=== PATIENT | male | born 1940 | race African-American/Black ===

== ENCOUNTER 2016-05-08 23:32 | Emergency (ER) ==
[2016-05-09] MEDS ORDERED: NITROGLYCERIN ONE ×2 (00:43→00:47)
--- NOTE | 2016-05-09 00:47 | PROVIDER DOCUMENTATION ---
HPI-Chest Pain - General Source: patient - History of Present Illness-CP Location: reports: substernal Chest Pain Radiation: reports: no radiation Quality of Pain: reports: aching Severity in ED: mild Onset/Duration: 1-3 hours ago Timing: still present Modifying Factors: improves with: nothing Associated Symptoms: reports: dizziness, nausea, syncope Similar Symptoms Previously?: No Recently Seen Here or By Another Healthcare Provider: No <Kate Ruiz - Last Filed: 05/09/16 00:48> <Dami Garcia - Last Filed: 05/09/16 03:18> - General Chief Complaint: Chest Pain Stated Complaint: WEAKNESS NAUSEA WITH NO VOMITING Time Seen by Provider: 05/09/16 00:28 Allergies/Adverse Reactions: Patient Allergies Allergy/AdvReac Type Severity Reaction Status Date / Time No Known Allergies Allergy Verified 05/08/16 23:42 Home Medications: Home Medication List Medication Instructions Recorded Confirmed Last Taken Type ATORVAstatin [Lipitor] 40 mg PO DAILY #30 tablet 12/10/12 Unknown Rx Aspirin 81 mg PO DAILY #0 chewtab 12/10/12 Unknown Rx Carvedilol [Coreg] 6.25 mg PO BID #60 tablet 12/10/12 Unknown Rx - History of Present Illness-CP Nature of Presenting Problem: 75 year old M presents to the ED with a cc of chest pain. PT states earlier tonight he was having a cocktail with friends and became nauseated and flushed feeling. PT states that he walked out on the balcony and became dizzy and blacked out. PT states that he does not remember falling. PT states that afterwards he felt better but developed chest pains. Pt states that he has been having intermittent chest pains x1 year while walking with minimal shortness of breath. (Kate Ruiz) Review of Systems - Adult - REVIEW OF SYSTEMS - ADULT Constitutional: denies: chills, fever Eyes: reports: no symptoms reported Ears, Nose, Mouth & Throat: reports: no symptoms reported Cardiovascular: reports: chest pain. denies: palpitations Respiratory: denies: cough, shortness of breath Gastrointestinal: reports: nausea. denies: abdominal pain, diarrhea, vomiting Genitourinary: denies: dysuria, hematuria Musculoskeletal: denies: back pain, neck pain Integumentary: denies: skin sores/ulcer, skin thickening Neurological: reports: dizziness/vertigo. denies: headache/migraines Psychiatric: reports: no symptoms reported Endocrine: reports: no symptoms reported Hematologic/Lymphatic: reports: no symptoms reported Allergic/Immunologic: reports: no symptoms reported All Other Systems: Reviewed and Negative <Kate Ruiz - Last Filed: 05/09/16 00:48> Past History - Adult - PAST MEDICAL HISTORY-ADULT Review of Records: reports: Nursing Assessment Review, Medications Reviewed Major Childhood Illnesses: reports: denies history Cardiovascular: reports: HTN, hyperlipidemia, [place] Respiratory: reports: COPD Endocrine/Immune: reports: thyroid disorder - PRIOR SURGERIES/PROCEDURES Surgical/Procedure History: reports: CABG - IMMUNIZATION STATUS Childhood Immunizations: See Nurse Assessment Flu Vaccine: See Nurse Assessment - SOCIAL HISTORY Smoking: cigarettes, less than 1 pack/day Provider spent 3-5 mins advising pt. on dangers of tobacco.: Discussed manners to quit use, and f/u contacts for add'l counseling. Substance Use: cocaine Alcohol Use Frequency: occasionally <Kate Ruiz - Last Filed: 05/09/16 00:48> Physical Exam-General - CONSTITUTIONAL General Appearance: appears well, alert, no apparent distress - EYES Eyes: pink conjunctivae - HEAD, EARS, NOSE, MOUTH & THROAT HENMT: normocephalic/atraumatic, moist mucous membranes, normal ENT inspection - NECK Neck: non-tender - RESPIRATORY Respiratory: chest non-tender, lungs clear, normal breath sounds, no respiratory distress - CARDIOVASCULAR Cardiovascular: normal peripheral pulses, regular rate, rhythm - GASTROINTESTINAL (ABDOMEN) Abdominal Exam: normal bowel sounds, non tender, soft, no organomegaly - LYMPHATIC Lymphatic: no adenopathy - MUSCULOSKELETAL Peripheral Pulses: radial (R): 3+, radial (L): 3+ - SKIN Integumentary: normal color, normal turgor - NEUROLOGIC Neurologic: grossly normal - PSYCHIATRIC Psych/Mental Status: normal mood/affect <Dami Garcia - Last Filed: 05/09/16 03:18> Progress - EKG 1 Time of EKG reading by physician:: 23:29 EKG Read and Signed by:: Dami Garcia EKG Interpretation (*Must complete 3 of following elements*): Abnormal Rate: 72 Rhythm: NSR QRS: LVH (with repolarization abnormality) Comments: possible left atrial enlargement, prolonged QT <Kate Ruiz - Last Filed: 05/09/16 00:48> Departure <Kate Ruiz - Last Filed: 05/09/16 00:48> - Departure Time of Disposition Order: 03:14 Certified Medical Emergency: Emergent <Dami Garcia - Last Filed: 05/09/16 03:18> - Departure DIAGNOSIS: Angina effort, Drug abuse, Alcohol abuse Disposition: HOME 01 Condition: Good Referrals: None,PCP [Primary Care Provider] - Amrik Ramirez MD [STAFF PHYSICIAN] - Attestation - Scribe Verification/Attestation Scribe:: Kate Ruiz Acting as Scribe for:: Dami Garcia Scribe documention review:: This chart was documented by a scribe and accurately reflects the service the provider performed and the decisions made by the provider. <Kate Ruiz - Last Filed: 05/09/16 00:48> Physician Attestation - Physician Attestation I, the provider, attest to the following statement:: Dami Garcia Physician documentation Attestation:: This documentation recorded by the scribe accurately reflects the service I personally performed and the decisions made by me. <Kate Ruiz - Last Filed: 05/09/16 00:48>
[2016-05-09] MEDS ORDERED: NITROGLYCERIN SL PRN ×2 (00:50→00:52)
[2016-05-09] MEDS ORDERED: NITROGLYCERIN TOP ONE (00:50)
[2016-05-09] MEDS ORDERED: ASPIRIN PO STA (00:52)
[2016-05-09] MEDS ORDERED: MORPHINE IV ONE (00:54)
[2016-05-09 01:54] LABS: MANUAL DIFF NEEDED? NO
[2016-05-09 02:13] LABS: INR 1.11; PROTIME 11.8 Seconds (9.2-11.7); PTT 25.4 Seconds (22.0-36.0)
[2016-05-09 02:15] LABS: BASO% 0.1 % (0.0-0.8); EOS# 0.03 X1000 (0.0-0.7); EOS% 0.4 % (0.0-10.0); HEMATOCRIT 43.6 % (42.0-52.0); HEMOGLOBIN 15.1 g/dL (14.0-18.0); IMM GRAN# 0.03 X1000 (0.0-0.04); IMM GRAN% 0.4 % (0.0-0.5); LYMPH# 1.47 X1000 (1.2-3.4); LYMPH% 17.5 % (20.5-51.1); MCH 30.8 PG (27-31); MCHC 34.6 g/dL (33-37); MONO# 0.63 X1000 (0.11-0.59); MONO% 7.5 % (1.7-9.3); NEUT% 74.1 % (42.2-75.2); PLT 260 X1000 (130-400)
[2016-05-09 02:25] LABS: AGAP 15; ALBUMIN 4.1 g/dL (3.5-5.0); ALKALINE PHOSPHATASE 73 U/L (32-122); BUN 18 mg/dL (8-22); CHLORIDE 101 mmol/L (98-107); CK PROFILE 159 U/L (24-204); COSMO 279; GOT 17 U/L (10-34); GPT 8 U/L (10-44); MAGNESIUM 2.1 mg/dL (1.5-2.7); POTASSIUM 4.1 mmol/L (3.5-5.1); SODIUM 139 mmol/L (136-145); TCO2 23 mmol/L (25-35); TOTAL BILIRUBIN 0.54 mg/dL (0.20-1.00); TOTAL PROTEIN 6.8 g/dL (6.3-8.3)
[2016-05-09 03:26] LABS: UR AMPHETAMINES QUAL NONE DETECTED (NONE DETECT); UR BARBITUATES QUAL NONE DETECTED (NONE DETECT); UR BENZODIAZEPIN QUAL NONE DETECTED (NONE DETECT); UR CANNABINOIDS QUAL NONE DETECTED (NONE DETECT); UR COCAINE QUAL PRESUMPTIVE POSITIVE (NONE DETECT); UR METHADONE QUAL NONE DETECTED (NONE DETECT); UR OPIATES QUAL PRESUMPTIVE POSITIVE (NONE DETECT); UR OXYCODONE QUAL NONE DETECTED (NONE DETECT); UR PCP QUAL NONE DETECTED (NONE DETECT)
[2016-05-09 03:45] VITALS: BP 161/69
--- NOTE | 2016-05-09 05:57 | EKG Report ---
Test Performed on : 05/09/2016 01:08:41 AM Test Reason : Chest Pain Blood Pressure : / mmHG Vent. Rate : 075 BPM Atrial Rate : 075 BPM P-R Int : 142 ms QRS Dur : 096 ms QT Int : 436 ms P-R-T Axes : 011 034 154 degrees QTc Int : 486 ms Normal sinus rhythm. Possible Left atrial enlargement Left ventricular hypertrophy with repolarization abnormality Prolonged QT Abnormal ECG When compared with ECG of 09-DEC-2012 10:11, premature ventricular complexes. are no longer present ST no longer depressed in Inferior leads ST now depressed in Lateral leads T wave inversion no longer evident in Inferior leads Unconfirmed Result
--- NOTE | 2016-05-09 07:37 | Diag Imaging Result Document ---
PROCEDURE NAME: CHEST-PORTABLE - 05/09/2016 AP PORTABLE CHEST ERECT AT 0115.: FINDINGS: There are sternotomy wires. There is minimal atelectasis in the lung bases. Compared to the previous study of 12/09/2012, there has been, otherwise, no significant change. IMPRESSION: Minimal subsegmental atelectasis.
--- NOTE | 2016-05-09 09:02 | ED EKG INTERP ---
EKG Interpretation - EKG Time of EKG reading by physician:: 01:08 EKG Read and Signed by:: Dami Garcia EKG Interpretation (*Must complete 3 of following elements*): Abnormal Rate: 75 Rhythm: nsr [place]: left (atrail enlargment) QRS: LVH VA Interval: prolonged
== END 2016-05-09 03:50 | disposition home or self-care (01) ==
LOC: EDBD → ED 23:32
DX: I20.8 Other forms of angina pectoris (principal); F19.10 Other psychoactive substance abuse, uncomplicated; F10.10 Alcohol abuse, uncomplicated; R94.31 Abnormal electrocardiogram [ECG] [EKG]; R07.89 Other chest pain; R42 Dizziness and giddiness; R11.0 Nausea; R55 Syncope and collapse; R53.1 Weakness; I10 Essential (primary) hypertension; E78.5 Hyperlipidemia, unspecified; I25.2 Old myocardial infarction; J44.9 Chronic obstructive pulmonary disease, unspecified; F17.210 Nicotine dependence, cigarettes, uncomplicated; Z71.6 Tobacco abuse counseling; Z95.1 Presence of aortocoronary bypass graft
CPT/HCPCS: 71010; 80053; 82550; 83735; 83880; 84484; 85025; 85379; 85610; 85730; 93005; G0480; J2270; 80324; 80345; 80346; 80349; 80353; 80358; 80361; 80365; 83992

== ENCOUNTER 2016-05-18 13:03 | Emergency (ER) ==
[2016-05-18 13:10] VITALS: BP 216/93
[2016-05-18] MEDS ORDERED: CATAPRES PO ONE (13:35)
[2016-05-18] MEDS ORDERED: NORCO-7.5 PO ONE (13:35)
[2016-05-18] MEDS ORDERED: ZOFRAN ODT PO ONE (13:35)
[2016-05-18] MEDS ORDERED: CATAPRES ONE (13:37)
--- NOTE | 2016-05-18 13:42 | PROVIDER DOCUMENTATION ---
HPI-Rash/Wound/ReCheck - General Chief Complaint: Abscess Stated Complaint: POSS ABSCESS Time Seen by Provider: 05/18/16 13:28 Source: patient Allergies/Adverse Reactions: Allergies Allergy/AdvReac Type Severity Reaction Status Date / Time No Known Allergies Allergy Verified 05/18/16 13:25 Home Medications: Home Medication List Medication Instructions Recorded Confirmed Last Taken Type ATORVAstatin [Lipitor] 40 mg PO DAILY #30 tablet 12/10/12 Unknown Rx Aspirin 81 mg PO DAILY #0 chewtab 12/10/12 Unknown Rx Carvedilol [Coreg] 6.25 mg PO BID #60 tablet 12/10/12 Unknown Rx Nitroglycerin Sl [Nitroglycerin] 0.4 mg SL PRN PRN #30 tablet 05/09/16 Unknown Rx ATORVAstatin [Lipitor] 40 mg PO DAILY #30 tablet 05/18/16 Unknown Rx Aspirin [Children's Aspirin] 81 mg PO DAILY #30 tab.chew 05/18/16 Unknown Rx Carvedilol [Coreg] 6.25 mg PO BID #60 tablet 05/18/16 Unknown Rx - History of Present Illness-Dermatology Nature of Presenting Problem: This pt presents today c X 2 complaints. He first states that he is out of his BP medications and his BP is up. Denies any BUNCH, vision changes or chest pains. He is also complaining of a painful skin growth on the R chest area. He states that it is extremely painful and is "weird colored". he states that he noticed it a few days ago. No other issues or complaints. Location: reports: chest Quality: reports: painful Severity: reports: moderate Onset/Duration: reports: other (see hpi) Timing: reports: still present Context/Associated Symptoms: reports: other (see hpi) Similar Symptoms Previously?: No Recently seen or treated by another doctor?: No Review of Systems - Adult - REVIEW OF SYSTEMS - ADULT Constitutional: reports: no symptoms reported. denies: chills, fever Eyes: reports: no symptoms reported. denies: discharge, dry eyes Ears, Nose, Mouth & Throat: reports: no symptoms reported. denies: ear discharge, ear pain Cardiovascular: reports: no symptoms reported. denies: chest pain, edema Respiratory: reports: no symptoms reported. denies: chronic cough, cough Gastrointestinal: reports: no symptoms reported. denies: abdominal pain, hematemesis Genitourinary: reports: no symptoms reported. denies: dysuria, discharge Musculoskeletal: reports: no symptoms reported. denies: bone pain, back pain Integumentary: reports: see HPI. denies: mole changes, nail changes Neurological: reports: no symptoms reported. denies: ataxia, dizziness/vertigo Psychiatric: reports: no symptoms reported. denies: anxiety, anti-depressant use Endocrine: reports: no symptoms reported Hematologic/Lymphatic: reports: no symptoms reported Allergic/Immunologic: reports: no symptoms reported All Other Systems: Reviewed and Negative Past History - Adult - PAST MEDICAL HISTORY-ADULT Review of Records: reports: Old Records Reviewed, Nursing Assessment Review, Medications Reviewed, Social history reviewed & non-contributory. Major Childhood Illnesses: reports: denies history Cardiovascular: reports: HTN, hyperlipidemia, [place] Respiratory: reports: denies history Gastrointestinal: reports: denies history Obstetrical/Gynecological: reports: denies history Genitourinary: reports: denies history Musculoskeletal: reports: denies history Neurological: reports: denies history Endocrine/Immune: reports: denies history Other Conditions: reports: denies history Physical Exam-General - PHYSICAL EXAM-ADULT Initial Vital Signs Reviewed: Yes - CONSTITUTIONAL General Appearance: appears well, alert, no apparent distress - EYES Eyes: PERRL/EOMI, pink conjunctivae - HEAD, EARS, NOSE, MOUTH & THROAT HENMT: normocephalic/atraumatic, moist mucous membranes, normal ENT inspection - NECK Neck: non-tender, full range of motion, supple - RESPIRATORY Respiratory: chest non-tender, lungs clear, normal breath sounds - CARDIOVASCULAR Cardiovascular: normal peripheral pulses, regular rate, rhythm, no edema, no gallop, no JVD, no murmur - GASTROINTESTINAL (ABDOMEN) Abdominal Exam: normal bowel sounds, non tender, soft - MUSCULOSKELETAL Back Exam: normal inspection Extremity: normal range of motion, non-tender, normal gait, normal inspection - SKIN Integumentary: normal turgor, warm/dry, other (there is a moderate sized escharotic skin lesion noted on the R chest wall; this does not appear to be an abscess) - NEUROLOGIC Neurologic: grossly normal, no motor/sensory deficits Progress - PLAN OF CARE/RESULTS Progress/Plan/Lab Results: Orders Category Date Time Status Clonidine [Catapres] Med 05/18/16 13:37 Discontinued 0.2 mg .ROUTE .STK-MED ONE Clonidine [Catapres] Med 05/18/16 13:35 Discontinued 0.2 mg PO NOW ONE Hydrocodone/APAP 7.5 mg/325 mg [[place]-7.5] Med 05/18/16 13:35 Discontinued 1 each PO NOW ONE Ondansetron Odt [Zofran Odt] Med 05/18/16 13:35 Discontinued 4 mg PO NOW ONE Vital Signs Temp Pulse Resp BP Pulse Ox 05/18/16 13:04 97.4 F L 84 18 216/93 100 No Known Allergies Allergy (Verified 05/18/16 13:25) ATORVAstatin [Lipitor] 40 mg PO DAILY #30 tablet 12/10/12 Aspirin 81 mg PO DAILY #0 chewtab 12/10/12 Carvedilol [Coreg] 6.25 mg PO BID #60 tablet 12/10/12 Nitroglycerin Sl [Nitroglycerin] 0.4 mg SL PRN PRN #30 tablet 05/09/16 Will refill medications. Have advised the pt to f/u c a banquet prep cook for a potential biopsy. He is in agreement c this plan. Departure - Departure Time of Disposition Order: 13:43 DIAGNOSIS: Skin lesion of chest wall, Encounter for medication refill Disposition: HOME 01 Certified Medical Emergency: Urgent Condition: Good Additional Instructions: Take medication as prescribed. As we discussed, you need to follow up with a banquet prep cook. ED Follow Up Instructions: You have been treated by a care provider in the Emergency Department. These instructions are being provided to you so you can have an understanding of how to care for yourself upon discharge. Upon discharge from the Emergency Department, you are responsible for making arrangements for follow-up care by a physician of your choice. Take all prescribed medications as directed. Return to the Emergency Department immediately for any new or worsening symptoms. You may call the Physician Referral phone number at [phone] to obtain a list of Physicians who are taking new patients. Prescriptions: Aspirin [Children's Aspirin] 81 mg PO DAILY #30 tab.chew Carvedilol [Coreg] 6.25 mg PO BID #60 tablet ATORVAstatin [Lipitor] 40 mg PO DAILY #30 tablet Referrals: America Candelario MD [Primary Care Provider] - Bryce,Nona S., MD [STAFF PHYSICIAN] - Attestation - Physician/ NIYA Attestation Patient care was provided by Advanced Practice Provider:: Yes Advanced Practice Provider:: Shawn Ramirez Advanced Practice Provider documentation review:: The Mid-level provider documentation, treatment plan and medical decision making was reviewed by the physician who agrees with all treatment and medical decision making by the MLP.
== END 2016-05-18 13:53 | disposition home or self-care (01) ==
LOC: ED 13:03
DX: L98.8 Other specified disorders of the skin and subcutaneous tissue (principal); R07.89 Other chest pain; I10 Essential (primary) hypertension; E78.5 Hyperlipidemia, unspecified; I25.2 Old myocardial infarction; Z79.82 Long term (current) use of aspirin; Z79.899 Other long term (current) drug therapy; Z76.0 Encounter for issue of repeat prescription
CPT/HCPCS: 99283

== ENCOUNTER 2018-03-05 17:44 | Inpatient (IN) ==
[2018-03-05] MEDS ORDERED: ASPIRIN PO ONE (18:15)
[2018-03-05] MEDS ORDERED: ASPIRIN ONE (18:20)
[2018-03-05 18:36] LABS: BASO# 0.02 X1000 (0.0-0.2); BASO% 0.2 % (0.0-0.8); EOS# 0.09 X1000 (0.0-0.7); EOS% 0.9 % (0.0-10.0); HEMATOCRIT 40.2 % (42.0-52.0); HEMOGLOBIN 12.9 g/dL (14.0-18.0); IMM GRAN# 0.04 X1000 (0.0-0.04); IMM GRAN% 0.4 % (0.0-0.5); LYMPH# 1.88 X1000 (1.2-3.4); LYMPH% 19.7 % (20.5-51.1); MCH 29.1 PG (27-31); MCHC 32.1 g/dL (33-37); MCV 90.7 FL (81-99); MONO# 1.13 X1000 (0.11-0.59); MONO% 11.8 % (1.7-9.3); PLT 536 X1000 (130-400); RBC 4.43 XMIL (4.7-6.1); RDW 13.5 % (11.5-14.5); WBC 9.56 X1000 (4.8-10.8)
--- NOTE | 2018-03-05 18:39 | Diag Imaging Result Doc PS360 ---
EXAM: CHEST-2 VIEWS 03/05/2018 HISTORY: chest pain/cough TECHNIQUE: PA and lateral chest COMMENT: Compared to the previous study of 02/13/2018 the opacity in the left lower lobe has improved. There is less perihilar opacity generally and the inspiration is better. IMPRESSION: Improved bronchopneumonia plus minus pulmonary edema. Electronically signed by Frederic Oneill 03/05/2018 6:37 PM
[2018-03-05 18:57] LABS: AGAP 10; ALB/GLOB RATIO 1.1; ALBUMIN 3.4 g/dL (3.5-5.0); ALKALINE PHOSPHATASE 113 U/L (32-122); BUN 14 mg/dL (8-22); CHLORIDE 102 mmol/L (98-107); CK PROFILE 61 U/L (24-204); COSMO 285; CREATININE 1.1 mg/dL (0.7-1.2); ESTIMATED GFR > 60; GLUCOSE 91 mg/dL (70-104); GOT 18 U/L (10-34); GPT 18 U/L (10-44); POTASSIUM 3.5 mmol/L (3.5-5.1); SODIUM 143 mmol/L (136-145); TCO2 31 mmol/L (25-35); TOTAL BILIRUBIN 0.29 mg/dL (0.20-1.00); TOTAL PROTEIN 6.5 g/dL (6.3-8.3)
[2018-03-05 19:19] LABS: PTT 34.2 Seconds (22.3-41.8)
[2018-03-05 19:29] LABS: INR 1.15; PROTIME 15.6 Seconds (11.0-16.0)
[2018-03-05] MEDS ORDERED: MORPHINE IV ONE (20:24)
[2018-03-05] MEDS ORDERED: LOVENOX SUBQ ONE (20:32)
[2018-03-05] MEDS ORDERED: COREG PO ONE (20:32)
[2018-03-05] MEDS ORDERED: LIPITOR PO ONE (20:34)
[2018-03-05] MEDS ORDERED: THIAMINE IM ONE (21:07)
[2018-03-05] MEDS ORDERED: ZOFRAN IV PRN (21:07)
[2018-03-05] MEDS ORDERED: RESTORIL PO ONE (21:07)
[2018-03-05] MEDS ORDERED: TYLENOL PO PRN (21:07)
[2018-03-05] MEDS: LIPITOR PO SCH (21:37)
[2018-03-05] MEDS: NITROGLYCERIN TOP SCH (21:37)
[2018-03-05] MEDS: COZAAR PO SCH (21:37)
[2018-03-05] MEDS: NORVASC PO SCH (21:37)
[2018-03-05] MEDS: COREG PO SCH ×2 (21:37)
[2018-03-05] MEDS: LOVENOX SUBQ SCH (21:38)
[2018-03-06] MEDS: MORPHINE IV PRN ×3 (00:31→15:37)
[2018-03-06 01:17] LABS: UR AMPHETAMINES QUAL NONE DETECTED (NONE DETECT); UR BARBITUATES QUAL NONE DETECTED (NONE DETECT); UR BENZODIAZEPIN QUAL PRESUMPTIVE POSITIVE (NONE DETECT); UR CANNABINOIDS QUAL NONE DETECTED (NONE DETECT); UR COCAINE QUAL NONE DETECTED (NONE DETECT); UR METHADONE QUAL NONE DETECTED (NONE DETECT); UR OPIATES QUAL PRESUMPTIVE POSITIVE (NONE DETECT); UR OXYCODONE QUAL NONE DETECTED (NONE DETECT); UR PCP QUAL NONE DETECTED (NONE DETECT)
[2018-03-06 03:14] LABS: BASO# 0.01 X1000 (0.0-0.2); BASO% 0.1 % (0.0-0.8); EOS# 0.12 X1000 (0.0-0.7); EOS% 1.4 % (0.0-10.0); HEMOGLOBIN 11.5 g/dL (14.0-18.0); IMM GRAN# 0.04 X1000 (0.0-0.04); IMM GRAN% 0.5 % (0.0-0.5); LYMPH# 1.91 X1000 (1.2-3.4); LYMPH% 22.6 % (20.5-51.1); MCH 28.9 PG (27-31); MCHC 31.9 g/dL (33-37); MCV 90.5 FL (81-99); MONO# 0.92 X1000 (0.11-0.59); MONO% 10.9 % (1.7-9.3); MPV 8.5 FL (7.4-10.4); NEUT# 5.44 X1000 (1.4-6.5); NEUT% 64.5 % (42.2-75.2); PLT 475 X1000 (130-400); RBC 3.98 XMIL (4.7-6.1); RDW 13.3 % (11.5-14.5); WBC 8.44 X1000 (4.8-10.8)
[2018-03-06] MEDS: NITROGLYCERIN TOP SCH ×6 (03:23→21:10)
--- NOTE | 2018-03-06 07:05 | HISTORY AND PHYSICAL ---
REASON FOR ADMISSION: Three day history of chest pain. HISTORY OF PRESENT ILLNESS: Mr. Dami Quan is a 77-year-old male with a past medical history of coronary artery disease status post coronary artery bypass grafting and chronic systolic heart failure, hypertensive heart disease, hyperlipidemia, and chronic low back pain. He comes in today complaining of a three day history of initially intermittent precordial chest pain radiating down his left arm with some lightheadedness and mild shortness of breath. He says that he came in specifically today because the pain became constant, and he has tried taking at least three sublingual nitroglycerin tablets without any relief. He says that the pain is like an achy, dull pain in the precordium. He says that his exercise tolerance has significantly plummeted. He says that when he walks about less than about five to ten feet he becomes profoundly short of breath. He also admits to having orthopnea but no PND. No cough. No fever or chills. No nausea or vomiting. No extremity redness or pain. No extremity swelling. He has not had any abdominal distention or fluid elsewhere. He has not had any bleeding from any orifice. REVIEW OF SYSTEMS: 12 system review was done and positives are noted above. ALLERGIES: NO KNOWN DRUG ALLERGIES. MEDICATIONS: 1. [place] 7.5. 2. Amlodipine 5 mg b.i.d. 3. Cozaar 50 mg b.i.d. 4. Aspirin 81 mg daily. 5. Lipitor 40 mg daily. 6. Coreg 12.5 mg b.i.d. 7. Lasix 40 mg daily. 8. Losartan 50 mg b.i.d. FAMILY HISTORY: Notable for heart disease in both parents. ALLERGIES: No known allergies. SOCIAL HISTORY: . The patient lives alone. He had been using cocaine up until his last admission two weeks ago on a weekly basis. He drinks about three to four beers and smokes 1/2 pack per day. SURGICAL HISTORY: 1. Bypass surgery. 2. Coronary stent placement. 3. Tonsillectomy. LABORATORY: White count 90,000, platelets 536, normal differential, potassium 3.5, BUN 14, creatinine 1.1, troponin negative, proBNP 8,000, PT and PTT normal. Chest film showed mild increased vascular markings. EKG showed normal sinus rhythm with flat subtle ST depressions and inverted T waves in the lateral inferior leads. He also has ST depressions in the precordial leads V4-V6 but this is more consistent with LVH with repolarization changes. They appear to be slightly more deep compared to prior EKG done two weeks ago. PHYSICAL EXAM: GENERAL: A well-nourished, elderly, -[place] man in no acute distress. He is alert and oriented x3 with normal affect. VITAL SIGNS: Blood pressure 150/62, heart rate 83, respirations 18, temperature 98.8 degrees Fahrenheit. O2 saturation 97% on room air. HEENT: Head: Normocephalic and atraumatic. Eyes: PERRL. EOMI. No pallor. ENT: Grossly normal. NECK: Supple. No JVD or hepatojugular reflux elicited. He has a left carotid bruit heard. No thyromegaly. CHEST: Decreased entry in the base. CARDIOVASCULAR: S1, S2 heard. No gallop, murmur or rub. Regular. ABDOMEN: Slightly protuberant. Soft. Nontender. No masses or organomegaly. Bowel sounds are hyperactive. No bruit heard. EXTREMITIES: The patient has decreased pulses distally in all extremities. Symmetrical, regular. No edema, clubbing or cyanosis. No tremors. NEUROLOGIC: No gross focal deficits. SKIN: Intact. No breakdown, lesions or erythema. MUSCULOSKELETAL: Grossly normal. ASSESSMENT: 1. Acute coronary syndrome/unstable angina. 2. Hypertensive heart disease. 3. Coronary artery disease. 4. Hyperlipidemia. 5. Recent history of cocaine abuse. 6. Probable COPD. 7. Tobacco use. 8. Probable alcohol abuse. PLAN: The patient's case was discussed with Dr. Amrik Ramirez whom the patient is known to. He will see the patient in the a.m. In the interim, we will do serial cardiac enzymes and EKG. If it is deemed that the patient's enzymes or EKG changes are pronounced, we will revisit the probability of possible transfer in case the patient rules in for an UT. Other issue with this patient is that he does have a history of cocaine abuse, and we will do a urine drug screen. It is possible that his chest pain could be emanating from that. In the interim, we will start the patient on morphine for pain and Nitro Paste. Start patient on higher doses of statins while decreasing the dose of amlodipine due to the potential for drug interaction of these two medications. Slowly increase dose of beta jennifer and adjust to heart rate and the patient's tolerance. We will start the patient on thiamine because of his history of alcohol abuse. NicoDerm patch will also be applied for the patient's tobacco use. The patient' s most recent echo showed an EF of 30-35%. None indicated at this time. Hopefully, with optimal blood pressure control and rate control, the patient's symptoms may be ameliorated. Continue with anti heart failure medications, i.e. Lasix and Cozaar. cc: Ever Blackwell MD [facility]
[2018-03-06] MEDS: COZAAR PO SCH (08:22)
[2018-03-06] MEDS: NORVASC PO SCH (08:22)
[2018-03-06] MEDS: COREG PO SCH ×4 (08:23→22:05)
[2018-03-06] MEDS: LASIX PO SCH (08:24)
[2018-03-06] MEDS: LOVENOX SUBQ SCH ×2 (08:24→22:05)
[2018-03-06] MEDS ORDERED: ASPIRIN PO SCH (09:00)
--- NOTE | 2018-03-06 12:50 | PROGRESS NOTE ---
DATE: 03/06/2018 SUBJECTIVE: This morning Mr. Quan refers to be doing a little better. He said his left chest pain is about 2/10. OBJECTIVE: Vital signs: Blood pressure is 128/46, pulse 66, respiration is 15 , temperature 98.3 degrees. General: Mr. Quan is a 77-year-old, gentleman. He is in bed. He did not seem to be in any cardiopulmonary distress. HEENT: Mucosa is pink and moist. Anicteric. Acyanotic. Neck: Supple. Chest: Air entry is bilaterally reduced, and there is prolonged expiratory phase of respiration. There is also some distant rhonchi and wheezing. Questionable crackles in the bases. Cardiovascular: Regular rate and rhythm. No murmurs, no rubs, no gallops. Abdomen: Soft, nontender. Bowel sounds present. Extremities: No pedal edema. DEVELOPMENT SYSTEM EFFICIENCY MANAGER: Patient was awake, alert, oriented. Musculoskeletal: There is an old sternotomy scar on the anterior midline chest wall. There is also tenderness to palpation of the lateral aspect of the left chest wall cage. However, according to Mr. Quan, the pain is actually worse when he takes in deep breaths. LABORATORY DATA: WBC is 8.44, hemoglobin is 11.5, platelet count 475. Chemistry is also reviewed from yesterday. So far troponins have been trended 3 times negative. Pro B is 8017. This is far less than what he had about 3 weeks ago. IMAGING STUDIES: 1. I have not seen an EKG. However, his tele monitoring strip shows normal sinus rhythm. 2. A chest x-ray yesterday showed improved bronchopneumonia, +/- pulmonary edema. ASSESSMENT: 1. Atypical left chest pain. The patient does have significant history of coronary artery disease, so I think it is reasonable to rule out possibility of acute coronary syndrome. However, he also has features that are suggestive of pleuritic pain in nature. We are going to do a computed tomography angiography to rule out any other possibilities including: venous thromboembolism in the pulmonary vasculature. The patient did have some episode of hypoxemia on presentation, which makes it plausible that underlying pulmonary embolism could be a potential etiology or any other lung pathology 2. History of chronic obstructive pulmonary disease with ongoing tobacco use. Mild to moderated exacerbation 3. History of coronary artery disease with dilated ischemic cardiomyopathy. Recent echocardiogram did show ejection fraction of 30%. The patient is currently euvolemic. PLAN: So, in general, I think Mr. Quan seems to be getting better on his chest pain. His troponins so far have all been negative. We will do a CT scan of the chest to rule out any other possible etiologies, including pulmonary embolism/ pneumothorax or pneumonia. Patient did have some blebs on the previous CT scan that he had in the hospital. We will also put the patient on nebulization for what seems to be mild exacerbation of his chronic obstructive pulmonary disease. We will address this more with what the CT scan will show. cc: Chaparro Wells MD [facility]
[2018-03-06 13:16] LABS: ALLEN TEST YES; BE 7.8 mmoll (-3.0-3.0); BLOOD TYPE ARTERIAL; HCO3-(ACT) 30.9 mmoll (20.0-26.0); O2(CT) 14.9 mL/dL (15.0-23.0); O2HB 90.7 % (95.0-99.0); PCO2(98.6) 46 mmHg (35-45); PO2(98.6) 60 mmHg (60-100); SAMPLE BLOOD; SAO2 94.1 % (95.0-100.0); THB 11.7 g/dL (11.5-17.4); pH(98.6) 7.46 (7.35-7.45)
[2018-03-06 13:17] LABS: MODALITY ROOM AIR
--- NOTE | 2018-03-06 13:55 | Diag Imaging Result Doc PS360 ---
EXAM: CT ANGIOGRM PULMONARY ARTERIES INDICATION: SOB/chest pain TECHNIQUE: This exam was performed using automated exposure control, adjustment of mA or kV according to patient size, and/or use of iterative reconstruction technique. Thin section axial images and 3-D MIPS were obtained. COMPARISON: None. FINDINGS: There is no evidence of pulmonary embolism. There is an ascending aortic aneurysm measuring up to 4.4 x 4.2 cm axially. There is moderate aortic atherosclerotic calcification. There is no evidence of aortic dissection. There is cardiomegaly. There are CABG changes. No significant mediastinal or hilar lymphadenopathy is appreciated. There is severe pulmonary emphysema with an apical predominance. There is airspace consolidation at both lower lobes at the bases, more prominent on the left, consistent with pneumonia. There is minimal airspace consolidation in the lingula. There is no pleural fluid collection and no pneumothorax. Limited views of the upper abdomen reveals cortical scarring at the upper pole of the left kidney. IMPRESSION: 1.Severe emphysema. 2.Airspace consolidation at the lung bases, more prominent on the left, consistent with pneumonia. 3.Cardiomegaly. 4.Ascending aortic aneurysm. 5.No evidence of pulmonary embolism. Electronically signed by Gautam Ellis 03/06/2018 1:52 PM
--- NOTE | 2018-03-06 14:38 | CARDIOLOGY CONSULTATION ---
DATE: 03/06/2018 CHIEF COMPLAINT ON PRESENTATION: Chest pain. HISTORY OF PRESENT ILLNESS: Mr. Quan is a 77-year-old black male with a history of coronary disease, last seen in clinic by Dr. Pino in 2010. He has had poor followup since that time. He had a recent hospitalization earlier in this month. Prior to today's visit I have had no previous clinical contact with the patient. The patient presents with complaints of chest pain. They are stabbing in nature, located in the left chest. They began intermittently 3 days ago and then in the last 24 hours or so it has been a more persistent pain. He reports some worsening with deep breath or cough but really no reproducible pain with palpation nor does he have any pain occurring with activity or ambulation. The patient has had limited compliance with medications. In addition, he has had relatively recent use of cocaine earlier this month. No recent fevers. His cough seems to be baseline. He is not endorsing any sort of orthopnea. PAST MEDICAL HISTORY: 1. Through chart review is significant for coronary disease with history of bypass in 2003 involving MICHELLE to the LAD, vein graft to an OM 2 and a vein graft to an RCA. His last cardiac catheterization was noted to be in March 2010. This was in the setting of a non-ST elevation MA. At that time, he had a normal left main. LAD was occluded in the midsegment and filled via a patent MOLLY. There was a high diagonal with a 50% ostial stenosis. Circumflex had mild diffuse irregularities. The right coronary was dominant with 95% proximal stenosis. The right coronary artery was stented at this time. The vein graft to the RCA was occluded. Vein graft to the circumflex was occluded. Left internal mammary was patent. 2. Ischemic cardiomyopathy. His last echocardiogram was earlier this month demonstrating an EF of 30% which was consistent with his previous echocardiogram in July 2017. He had mild left ventricular hypertrophy along with global hypokinesis on that study. 3. Peripheral vascular disease. 4. Hyperlipidemia. 5. Tobacco abuse. 6. Polysubstance abuse. SOCIAL HISTORY: The patient does have a history of cocaine usage. He is . Son and ex- are present in the room. FAMILY HISTORY: Significant for heart disease in both parents as well as hypertension. REVIEW OF SYSTEMS: A 10 system review of systems is negative except for those mentioned in HPI. OBJECTIVE: Vital signs: He is afebrile, heart rate is 66. His blood pressure is 128/47. General: He is in no acute distress. HEENT: Oropharynx is moist. Poor dentition. Eye examination shows pink conjunctivae, white sclerae. Neck: Examination shows no obvious thyromegaly or thyroid tenderness. Cardiovascular: He sounds to be in a regular rate and rhythm. There is no obvious murmurs. He has no S3. He has no lower extremity edema. Chest: Clear bilaterally. He has no increased work of breathing. Abdomen: Soft, nontender, nondistended. He has no obvious organomegaly. PERTINENT DATA: His chest x-ray demonstrates improved bronchopneumonia plus or minus pulmonary edema that was noted on previous x-ray earlier this month. Pulmonary arteriogram is presently pending. His lab data demonstrates a white count of 8.4, hematocrit 36, his platelet count is 475,000. His sodium yesterday was 143, potassium 3.5, BUN 14, creatinine is 1.1. His opiate screen was positive as was his benzodiazepines screen. His proBNP is 8000. His troponins have been negative times multiple sets with negative CK. His original electrocardiogram checked at 0 yesterday was a half standard EKG, demonstrated LVH type changes with secondary LVH ST-T changes. His subsequent EKG at 4:07 this morning was a full standard EKG that again showed findings consistent with the previous. The 3rd EKG was at 6:02 this morning which was a half standard EKG again showing findings suggestive of left ventricular hypertrophy. His previous EKG checked February 13 also demonstrated these findings suggestive of LVH. It does not appear to have significantly changed recently. ASSESSMENT: Mr. Quan is a 77-year-old gentleman who presented with complaints of atypical sounding chest pain, although he does have a history of coronary disease. PLAN: We will initiate treatment of his low ejection fraction. I have stopped the losartan and initiated him on Entresto to get his 1st dose tonight. We will check lipid panel and a BMP in the morning. In addition, we will follow up on his pulmonary arteriogram results which are currently pending. He may need increased diuresis. In addition, we may consider doing nuclear scanning on Thursday but we will have to follow up on the results of this testing. We will get a limited echocardiogram on the patient to evaluate wall motion. cc: Amrik Ramirez MD
[2018-03-06] MEDS: LEVAQUIN 750 MG/D5W 750 MG/150 ML IVPB IV SCH (15:36)
[2018-03-06] MEDS: SOLU-MEDROL IV SCH (15:37)
[2018-03-06] MEDS: ZYVOX PO SCH ×2 (15:37→22:05)
[2018-03-06] MEDS: XOPENEX NEB INH SCH ×5 (16:11→23:34)
[2018-03-06] MEDS: NS NEB INH SCH (16:11)
[2018-03-06] MEDS: LIPITOR PO SCH (22:05)
[2018-03-06] MEDS: ENTRESTO 24 MG-26 MG TABLET PO SCH (22:25)
[2018-03-07] MEDS: SOLU-MEDROL IV SCH ×3 (00:44→17:13)
[2018-03-07] MEDS: XOPENEX NEB INH SCH ×6 (03:50→23:30)
[2018-03-07] MEDS: NITROGLYCERIN TOP SCH ×4 (04:01→22:11)
[2018-03-07 06:47] LABS: AGAP 12; BUN 16 mg/dL (8-22); CALCIUM 8.5 mg/dL (8.8-10.2); CHLORIDE 100 mmol/L (98-107); CHOLESTEROL 135 mg/dL (0-200); COSMO 281; CREATININE 0.9 mg/dL (0.7-1.2); ESTIMATED GFR > 60; GLUCOSE 147 mg/dL (70-104); HDL 34 mg/dL (35-55); LDL 87 mg/dL; POTASSIUM 3.8 mmol/L (3.5-5.1); SODIUM 139 mmol/L (136-145); TCO2 27 mmol/L (25-35); TRIGLYCERIDES 70 mg/dL (39-160); VLDL 14 mg/dL
[2018-03-07] MEDS: ZYVOX PO SCH ×2 (10:19→22:11)
[2018-03-07] MEDS: NORVASC PO SCH (10:19)
[2018-03-07] MEDS: ENTRESTO 24 MG-26 MG TABLET PO SCH ×2 (10:19→22:11)
[2018-03-07] MEDS: COREG PO SCH ×4 (10:20→22:11)
[2018-03-07] MEDS: ASPIRIN PO SCH (10:20)
[2018-03-07] MEDS: LASIX PO SCH (10:20)
[2018-03-07] MEDS ORDERED: PREVNAR 13 IM ONE (12:08)
--- NOTE | 2018-03-07 14:21 | PROGRESS NOTE ---
DATE: 03/07/2018 SUBJECTIVE: This morning, Mr. Quan refers to be doing a lot better. Still has a residual left side chest pain, but not as before. There was a son at the bedside at the time of the encounter. OBJECTIVE: Vital Signs: Blood pressure 139/51, pulse is 64, respirations 14, temperature 97.5. General: Mr. Quan is a 77-year-old gentleman. He was in bed. He did not seem to be in any cardiopulmonary distress. Mucosa is pink and moist. Anicteric. Acyanotic. Neck: Supple. Respiratory: Air entry was bilaterally reduced. There is still prolonged expiratory phase of respiration. There is wheezing and rhonchi posteriorly. Cardiovascular: Regular rate and rhythm. No murmurs, no rubs, no gallops. Abdomen: Soft, nontender. Bowel sounds were present. There was no hepatosplenomegaly. Extremities: No pedal edema. Distal pulses are present. CATARACT LENS GENERATOR: Patient is awake, alert, and oriented. Musculoskeletal: Patient has an old sternotomy scar on the anterior midline, and there is mild tenderness palpating the left chest wall. LABORATORY DATA: There is no CBC today. Chemistry is reviewed, completely unremarkable. The patient's C-reactive protein was 81.10. A CTA of the lungs yesterday did show severe emphysema. There is bilateral lower lobe pneumonia, cardiomegaly. ASSESSMENT AND PLAN: 1. Pleuritic chest pain, secondary to pneumonia. 2. Multifocal pneumonia. 3. Chronic obstructive pulmonary disease exacerbation. I do not think the patient really has been diagnosed officially with that. However, his CT scan shows severe emphysema. The patient continues to smoke, on which he has been extensively counseled on cessation. We will get Pulmonary Medicine also to evaluate him. 4. History of coronary artery disease, status post coronary artery bypass graft. 5. Severe dilated ischemic cardiomyopathy, with ejection fraction of 30%. Cardiology is on board. 6. Acute hypoxemic respiratory failure, secondary to chronic obstructive pulmonary disease exacerbation and bilateral pneumonia. The patient is currently on nasal cannula oxygenation and is doing well. In general, Mr. Quan is doing fairly okay. His troponin 3 times have been negative, and there have not been any changes on the EKG. I think his chest pain is more pleuritic, and it is due to the underlying pneumonias. We have him covered with Levaquin and Zyvox for MRSA coverage. We will continue with the steroids nebulization. We will get Pulmonary Medicine also to see him today. Mr. Quan is a potential discharge tomorrow. We will evaluate his home oxygen needs at the time of discharge. cc: Chaparro Wells MD MTDD
[2018-03-07] MEDS: LEVAQUIN 750 MG/D5W 750 MG/150 ML IVPB IV SCH (14:56)
[2018-03-07] MEDS: MORPHINE IV PRN (17:10)
--- NOTE | 2018-03-07 19:32 | PROVIDER DOCUMENTATION ---
This chart was entered by Yudelka Hunter Scribe, acting as scribe for Michael Pritchett MD. HPI-Chest Pain - General Chief Complaint: Chest Pain Stated Complaint: CHEST PAIN, COUGHING Time Seen by Provider: 03/05/18 19:12 Source: patient Allergies/Adverse Reactions: Patient Allergies Allergy/AdvReac Type Severity Reaction Status Date / Time No Known Allergies Allergy Verified 03/05/18 18:57 Home Medications: Home Medication List Medication Instructions Recorded Confirmed Last Taken Type Aspirin 81 mg PO DAILY #30 chewtab 07/21/17 03/05/18 03/05/18 Rx Losartan [Cozaar] 50 mg PO BID #60 tab 07/21/17 03/05/18 03/05/18 Rx Nitroglycerin Sl [Nitroglycerin] 0.4 mg SL PRN PRN #30 tab 07/21/17 03/05/18 Rx Hydrocodone/Acetaminophen [[place] 7.5 mg pe PO PRN PRN 02/13/18 02/13/18 Unknown History 7.5-325 Tablet] ATORVAstatin [Lipitor] 40 mg PO DAILY #60 tab 02/16/18 03/05/18 03/05/18 Rx Amlodipine [Norvasc] 5 mg PO BID #60 tab 02/16/18 03/05/18 03/05/18 Rx Carvedilol [Coreg] 12.5 mg PO BID #60 tab 02/16/18 03/05/18 03/05/18 Rx Furosemide 40 mg PO DAILY #90 tab 02/16/18 03/05/18 03/05/18 Rx - History of Present Illness-CP Nature of Presenting Problem: Patient is a 77 year old male who presents to the ED with left side chest pain. Patient states chest pain has been present for 4 days intermittently but was constant today. Patient states taking nitro today and yesterday with no relief. Patient states cough and was diagnosed with pneumonia recently but was not treated. Patient states history of CABG. Location: reports: other (left side) Chest Pain Radiation: reports: no radiation Quality of Pain: reports: aching Severity in ED: mild Onset/Duration: 4 days ago Timing: constant Context/Activities at Onset: reports: light activity Modifying Factors: improves with: nothing Associated Symptoms: reports: denies symptoms Nitro Today/Relief: 0.4 mg x 1, provided by ED, no relief Prior Chest Pain/Cardiac Workup: reports: other (CABG) Similar Symptoms Previously?: Yes Recently Seen Here or By Another Healthcare Provider: No Review of Systems - Adult - REVIEW OF SYSTEMS - ADULT Constitutional: reports: no symptoms reported Eyes: reports: no symptoms reported Ears, Nose, Mouth & Throat: reports: no symptoms reported Cardiovascular: reports: chest pain (left). denies: heart murmur, irregular heart rate, palpitations Respiratory: reports: cough. denies: shortness of breath, wheezing Gastrointestinal: reports: no symptoms reported Genitourinary: reports: no symptoms reported Musculoskeletal: reports: no symptoms reported Integumentary: reports: no symptoms reported Neurological: reports: no symptoms reported Psychiatric: reports: no symptoms reported Endocrine: reports: no symptoms reported Hematologic/Lymphatic: reports: no symptoms reported Allergic/Immunologic: reports: no symptoms reported All Other Systems: Reviewed and Negative Past History - Adult - PAST MEDICAL HISTORY-ADULT Review of Records: reports: Nursing Assessment Review, Medications Reviewed, Social history reviewed & non-contributory. Major Childhood Illnesses: reports: denies history. denies: Influenza Cardiovascular: reports: CAD, CHF, HTN, hyperlipidemia, PR Respiratory: reports: asthma, COPD, sleep apnea Gastrointestinal: reports: GERD Obstetrical/Gynecological: reports: denies history Genitourinary: reports: denies history Musculoskeletal: reports: denies history Neurological: reports: denies history Psychiatric: reports: denies history Endocrine/Immune: reports: thyroid disorder Other Conditions: reports: denies history, deaf/hard of hearing - PRIOR SURGERIES/PROCEDURES Surgical/Procedure History: reports: CABG - IMMUNIZATION STATUS Childhood Immunizations: See Nurse Assessment Flu Vaccine: See Nurse Assessment - FAMILY HISTORY Family History: reviewed, not pertinent - SOCIAL HISTORY Smoking: cigarettes, less than 1 pack/day Provider spent 3-5 mins advising pt. on dangers of tobacco.: Discussed manners to quit use, and f/u contacts for add'l counseling. Substance Use: denies Living Situation: family Physical Exam-General - PHYSICAL EXAM-ADULT Initial Vital Signs Reviewed: Yes - CONSTITUTIONAL General Appearance: alert, no apparent distress - EYES Eyes: PERRL/EOMI, pink conjunctivae - HEAD, EARS, NOSE, MOUTH & THROAT HENMT: normal ENT inspection - NECK Neck: non-tender, normal inspection - RESPIRATORY Respiratory: chest non-tender, lungs clear, normal breath sounds - CARDIOVASCULAR Cardiovascular: normal peripheral pulses, regular rate, rhythm - GASTROINTESTINAL (ABDOMEN) Abdominal Exam: normal bowel sounds, non tender, soft - MUSCULOSKELETAL Back Exam: normal inspection Extremity: non-tender, normal inspection - SKIN Integumentary: normal color, normal turgor, warm/dry - NEUROLOGIC Neurologic: grossly normal, no motor/sensory deficits - PSYCHIATRIC Psych/Mental Status: normal mood/affect, oriented x 3 Progress - PLAN OF CARE/RESULTS Progress/Plan/Lab Results: Orders Category Date Time Status Admit - [facility] Routine AdmDCTranf 03/05/18 21:07 Active Activity - Up with Assistance ORDERED Care 03/05/18 21:07 Active Cardiac Monitoring DIRECTED Care 03/05/18 18:15 Completed Daily Weights 0500 Care 03/05/18 21:07 Active Intake and Output-Strict ORDERED Care 03/05/18 21:07 Active Notify MD if DIRECTED Care 03/05/18 21:07 Active Old records/chart to unit .From other facility Care 03/05/18 21:07 Active Oxygen Therapy- ED Nursing DIRECTED Care 03/05/18 18:15 Completed Saline Loc NOW Care 03/05/18 18:15 Completed Vital Signs Order Q 4-HR ASSESS Care 03/05/18 21:07 Completed Z-Document. for Tele Applied ORDERED Care 03/05/18 21:07 Completed Physician/Provider Consults Routine Cons 03/05/18 21:07 Ordered Heart Healthy Diet Diet 03/05/18 21:08 Active CHEST-2 VIEWS [RAD] Stat Exams 03/05/18 18:15 Completed CBC WITH DIFF [HEME] Routine Lab 03/06/18 03:03 Completed CBC WITH ELECTRONIC DIFF [HEME] Stat Lab 03/05/18 18:17 Completed CK PROFILE [SP CHEM] Stat Lab 03/05/18 18:17 Completed COMPREHENSIVE METABOLIC PANEL [CHEM] Stat Lab 03/05/18 18:17 Completed PRO B-NATRIURETIC PEPTIDE Stat Lab 03/05/18 18:17 Completed PROTIME WITH INR [COAG] Stat Lab 03/05/18 18:17 Completed PTT [COAG] Stat Lab 03/05/18 18:17 Completed TROPONIN T Q6H Lab 03/06/18 03:03 Completed TROPONIN T Stat Lab 03/05/18 18:17 Completed URINE DRUG SCREEN Stat Lab 03/06/18 00:45 Completed ATORVAstatin [Lipitor] Med 03/05/18 21:00 Active 80 mg PO HS ATORVAstatin [Lipitor] Med 03/05/18 20:34 Discontinued 80 mg PO NOW ONE Acetaminophen [Tylenol] Med 03/05/18 21:07 Active 650 mg PO Q6H PRN PRN Amlodipine [Norvasc] Med 03/05/18 21:07 Active 5 mg PO DAILY Aspirin Med 03/05/18 18:20 Discontinued 325 mg .ROUTE .STK-MED ONE Aspirin Med 03/06/18 09:00 Discontinued 325 mg PO DAILY Aspirin Med 03/05/18 18:15 Discontinued 325 mg PO NOW ONE Carvedilol [Coreg] Med 03/05/18 21:07 Active 12.5 mg PO BID Carvedilol [Coreg] Med 03/05/18 20:32 Discontinued 15.625 mg PO NOW ONE Carvedilol [Coreg] Med 03/05/18 21:07 Active 3.125 mg PO BID Enoxaparin [Lovenox] Med 03/05/18 21:07 Discontinued 50 mg SUBQ Q12H Enoxaparin [Lovenox] Med 03/05/18 20:32 Discontinued 55 mg SUBQ NOW ONE Furosemide [Lasix] Med 03/06/18 09:00 Active 40 mg PO DAILY Losartan [Cozaar] Med 03/05/18 21:07 Discontinued 50 mg PO BID Morphine Med 03/05/18 20:24 Discontinued 2 mg IV NOW ONE Morphine Med 03/05/18 21:07 Active 4 mg IV Q4H PRN PRN Nitroglycerin Med 03/05/18 21:07 Active 1 inch TOP Q6H Ondansetron [Zofran] Med 03/05/18 21:07 Active 4 mg IV Q4H PRN PRN Temazepam [Restoril] Med 03/05/18 21:07 Discontinued 15 mg PO NOW ONE Thiamine Med 03/05/18 21:07 Discontinued 100 mg IM NOW ONE Oxygen Device Routine Oth 03/05/18 21:07 Completed Pulse Oximetry Routine Oth 03/05/18 21:07 Completed Telemetry [OM.EQ] Routine Oth 03/05/18 21:07 Active EKG [EKG] Q6H Ther 03/05/18 21:07 Ordered EKG [EKG] Q6H Ther 03/06/18 03:07 Ordered EKG [EKG] Stat Ther 03/05/18 18:15 Ordered Transfer/Admit Order [TRANSFER] Routine Transfer 03/05/18 20:26 Completed Result Diagrams: 03/06/18 03:03 03/07/18 05:54 - EKG 1 Time of EKG reading by physician:: 18:10 EKG Read and Signed by:: Michael Pritchett EKG Interpretation (*Must complete 3 of following elements*): Abnormal Rate: 85 Rhythm: sinus rhythm with 1st degree AV block Comments: left ventricular hypertrophy with repolarization abnormality. - XRAY 1 XRAY Study: Chest Impression: See EMR Report (EXAM: CHEST-2 VIEWS 03/05/2018 HISTORY: chest pain /cough TECHNIQUE: PA and lateral chest COMMENT: Compared to the previous study of 02/13/2018 the opacity in the left lower lobe has improved. There is less perihilar opacity generally and the inspiration is better. IMPRESSION: Improved bronchopneumonia plus minus pulmonary edema. Electronically signed by Frederic Oneill 03/05/2018 6:37 PM 03/05/18 183 Interpreting Physician: Frederic Oneill MD Dictated Date/Time: 03/05/181835 cc: Joseph Silveira MD; Ever Farrell MD) - CONSULTS/PCP/HOSPITALIST Notification #1 *Consult/PCP/Hospitalist*: Dr. Blackwell Time Discussed: 20:15 Reason/Comments: Dr. Pritchett consulted with Dr. Blackwell about patient. Consult Disposition: Will see in ED, Admit, other (consult with cardiology. repeat cardiac enzymes and EKG) #2 Consult: Dr. Ramirez Time Discussed: 20:18 Reason/Comments: Dr. Pritchett consulted with Dr. Ramirez about patient. Consult Disposition: Admit, other (Dr. Ramirez states pain control, nitro, lovenox, and betablock.) Departure - Departure Date of Disposition Decision: 03/05/18 Time of Disposition Decision: 20:00 DIAGNOSIS: Chest pain Disposition: ADMITTED INPATIENT 09 Certified Medical Emergency: Emergent Condition: Stable - Critical Care Note This patient required my direct & personal management of CC.: No Attestation - Physician/ NIYA Attestation Patient care was provided by Advanced Practice Provider:: No The physician spent face to face time with patient:: Yes Advanced Practice Provider documentation review:: Supervising physician onsite and consulted in the evaluation and care of this patient. The physician did have a face to face encounter with the patient. This chart was documented by the indicated scribe, (Yudelka Hunter Scribe) and accurately reflects the services I performed and decisions made by me, Michael Pritchett MD, as attested by the provider's signature.
--- NOTE | 2018-03-07 19:35 | CARDIOLOGY PROGRESS NOTE ---
DATE: 03/07/2018 SUBJECTIVE: Mr. Quan overall feels a little bit better than yesterday. He continues to have a pleuritic discomfort in his left chest associated with deep breath or cough. OBJECTIVE: Vital signs: He is afebrile, heart rate is 72, blood pressure 118/54. General: He is in no acute distress. Cardiovascular: He sounds to be in a regular rate and rhythm. I do not hear any obvious murmurs. He has no S3. He has no lower extremity edema. Chest: Notable for reduced breath sounds in the left base as well as discomfort with palpation of the left lower chest wall area. Abdomen: Soft, nontender, nondistended. He has no obvious organomegaly. PERTINENT DATA: His pulmonary arteriogram was noted yesterday evident for severe emphysema, airspace consolidation at the lung bases more prominent on the left consistent with pneumonia. In addition he has an ascending thoracic aortic aneurysm of 4.4 x 4.2 cm. No pulmonary embolism was identified. His sodium is 139, potassium 3.8, his BUN is 16, creatinine 0.9. His proBNP is 4287. ASSESSMENT: Mr. Quan is a 77-year-old gentleman with a history of coronary artery disease as well as heart failure. He presented with what sounds like a pneumonia. PLAN: He has been initiated on Entresto as well as carvedilol. He is on aspirin, amlodipine and atorvastatin. I would continue with this course of therapy. His proBNP has reduced overall. We can consider up titration or possible addition of medication like Aldactone in the future. I placed on his discharge plan a recommendation for him to follow with Dr. Pino. His LDL is 87 and his statin therapy has been escalated to a total of 80 mg of atorvastatin. I agree with this change in medication. cc: Amrik Ramirez MD
--- NOTE | 2018-03-07 19:39 | ECHO REPORT ---
ORDER DATE: 03/06/2018 INDICATION: Chest pain. Evaluate wall motion and ejection fraction. FINDINGS: 1. The right atrium appears to be normal in size. 2. There is mild tricuspid regurgitation. Insufficient data to estimate RV systolic pressure. 3. Normal RV size and systolic function. 4. There is no evidence of mitral valve prolapse. Mild mitral regurgitation is noted. There is some thickening noted the anterior mitral leaflet. 5. Left ventricle appears normal in size with an end-diastolic dimension of 5.4. Normal wall thicknesses with a posterior and interventricular septal wall thickness 1.1 cm each. The LV systolic function appears to be reduced with an estimated EF in the 35 to 40% range. Global hypokinesis is noted. 6. Aortic valve appears to open reasonably well. There is mild aortic insufficiency. There is some calcification noted primarily on what appears to be the noncoronary cusp. 7. No pericardial effusion seen. 8. This was a limited study. cc: Amrik Ramirez MD
--- NOTE | 2018-03-07 19:53 | PULMONOLOGY CONSULTATION ---
DATE: 03/07/2018 REQUESTING PHYSICIAN: Chaparro Wells MD. REASON FOR CONSULTATION: COPD exacerbation. HISTORY OF PRESENT ILLNESS: Mr. Dami Quan is a 77-year-old with COPD, history of multiple drug use including recurrent admissions with toxicology positive for cocaine, who was admitted to the hospital from 02/13/2018 until 02/16/2018 with an exacerbation of heart failure with urine positive for cocaine along with mild COPD exacerbation. Echocardiogram at that time revealed an ejection fraction of 30% and CT scan revealed small effusions with basilar atelectasis. He was encouraged not to smoke or use drugs at the time of discharge. The patient returned to the emergency room on 03/05 with a report of chest pain. The patient makes an extremely difficult historian, and I have difficulty getting two stories the same or a coherent story. He does report some cough and perhaps sputum production with some nonspecific chest wall pain. He reports his shortness of breath markedly worsened. He did try nitroglycerin for the pain without resolution. A CT scan of the thorax was performed yesterday which revealed new air space consolidations more prominent on the left consistent with pneumonia. These infiltrates were not present at the last admission. PAST MEDICAL HISTORY/PROBLEM LIST: 1. COPD. The patient reports that he stopped smoking four to five days ago. 2. Coronary artery disease with prior bypass grafting. 3. Ischemic cardiomyopathy. 4. Polysubstance abuse with frequent urine testing positive for cocaine. 5. Peripheral vascular disease. 6. Dyslipidemia. 7. Hypertension. 8. Status post tonsillectomy. 9. Gastroesophageal reflux. 10.History of nephrolithiasis. 11.Anxiety/depressive disorder. 12.History of thyroid disease. 13.Osteoarthritis. SOCIAL HISTORY: Frequent cocaine use, alcohol use on the weekends, ongoing tobacco use. REVIEW OF SYSTEMS: As noted in the HPI, but otherwise negative. FAMILY HISTORY: Positive for heart failure and hypertension. PHYSICAL EXAMINATION: General: This is a thin, chronically ill appearing black male resting comfortably and in no distress. He is on nasal cannula. HEENT: Pupils are equal and reactive. Oropharynx is clear. Neck: Supple. Chest: Prolonged expiratory phase with crackles in both lung bases. Cardiac: S1, S2 with laterally placed PMI. Abdomen: Scaphoid and soft. Extremities: Without edema. LABORATORY: A CT scan of the thorax as per HPI. White blood count 8.44, hemoglobin 11.5, and platelet count 475,000. Chemistries show a sodium of 139, potassium 3.8, chloride 100, bicarbonate 27, BUN 16, creatinine 0.9. Oxygen saturation is 88% in the emergency room. IMPRESSION: 77-year-old with COPD, ongoing tobacco use, acute hypoxemic respiratory failure, history of polysubstance abuse, with bilateral pneumonia not present during previous admission. The patient is a difficult historian. RECOMMENDATIONS: 1. Broad spectrum antibiotics covering both gram positive and gram negative organisms given recent hospital admission. 2. Routine bronchodilators. 3. Continue oxygen for hypoxemic respiratory failure. 4. Encourage smoking cessation. With the patient's cardiomyopathy, cocaine use is strongly discouraged. 5. Further recommendations pending hospital course. cc: Jones Hernandez MD
[2018-03-07] MEDS: ZOSYN 3.375 GM in NS 50 ML IV SCH (22:08)
[2018-03-07] MEDS: LIPITOR PO SCH (22:11)
[2018-03-08] MEDS: SOLU-MEDROL IV SCH ×3 (02:02→17:08)
[2018-03-08] MEDS: XOPENEX NEB INH SCH ×6 (04:04→22:00)
[2018-03-08] MEDS: ZOSYN 3.375 GM in NS 50 ML IV SCH ×4 (04:35→20:23)
[2018-03-08] MEDS: NITROGLYCERIN TOP SCH ×2 (04:35→09:24)
--- NOTE | 2018-03-08 07:13 | EKG Report ---
Test Performed on : 03/05/2018 6:10:37 PM Test Reason : chest pain Blood Pressure : / mmHG Vent. Rate : 085 BPM Atrial Rate : 085 BPM P-R Int : 280 ms QRS Dur : 104 ms QT Int : 350 ms P-R-T Axes : 000 037 252 degrees QTc Int : 416 ms Sinus rhythm. with 1st degree AV block. Left ventricular hypertrophy with repolarization abnormality Abnormal ECG When compared with ECG of 13-FEB-2018 09:36, (Unconfirmed) SD interval has increased QT has shortened Unconfirmed Result
--- NOTE | 2018-03-08 07:50 | EKG Report ---
Test Performed on : 03/06/2018 06:02:18 AM Test Reason : CP Blood Pressure : / mmHG Vent. Rate : 062 BPM Atrial Rate : 062 BPM P-R Int : 146 ms QRS Dur : 102 ms QT Int : 446 ms P-R-T Axes : 063 047 260 degrees QTc Int : 452 ms Normal sinus rhythm. Possible Left atrial enlargement Left ventricular hypertrophy with repolarization abnormality Abnormal ECG When compared with ECG of 06-MAR-2018 00:04, (Unconfirmed) No significant change was found Confirmed by Zachary KELLEY, Eduardo Vela ([id number]) on 03/08/2018 9:44:14 AM
--- NOTE | 2018-03-08 07:58 | EKG Report ---
Test Performed on : 03/06/2018 00:04:07 AM Test Reason : CP Blood Pressure : / mmHG Vent. Rate : 071 BPM Atrial Rate : 071 BPM P-R Int : 120 ms QRS Dur : 100 ms QT Int : 426 ms P-R-T Axes : 025 063 266 degrees QTc Int : 462 ms Normal sinus rhythm. Possible Left atrial enlargement Left ventricular hypertrophy with repolarization abnormality Abnormal ECG When compared with ECG of 05-MAR-2018 18:10, (Unconfirmed) AL interval has decreased T wave inversion more evident in Anterior leads Nonspecific T wave abnormality has replaced inverted T waves in Lateral leads Confirmed by Zachary KELLEY, Eduardo Vela ([id number]) on 03/08/2018 9:43:59 AM
--- NOTE | 2018-03-08 09:07 | Diag Imaging Result Doc PS360 ---
EXAM: CHEST-2 VIEWS - 03/08/2018 HISTORY: hypoxia TECHNIQUE: Chest two views COMPARISON: 03/05/2018 FINDINGS: Heart size is normal. There are sternal wires from previous surgery again seen. There is tortuosity of the thoracic aorta similar to prior. There are COPD changes. There has been some further decrease in infiltrate at the left base, although this has not resolved. The remainder of the lungs appear essentially clear. There is no pleural effusion or pneumothorax identified. IMPRESSION: COPD changes. Decrease in left basilar infiltrate compared to prior. Electronically signed by Tom Welch 03/08/2018 9:05 AM
[2018-03-08] MEDS: ZYVOX PO SCH ×2 (09:24→20:22)
[2018-03-08] MEDS: COREG PO SCH ×4 (09:24→20:22)
[2018-03-08] MEDS: LASIX PO SCH (09:24)
[2018-03-08] MEDS: ASPIRIN PO SCH (09:24)
[2018-03-08] MEDS: NORVASC PO SCH (09:24)
[2018-03-08] MEDS: LOVENOX SUBQ SCH (09:26)
[2018-03-08] MEDS: ENTRESTO 24 MG-26 MG TABLET PO SCH (09:27)
--- NOTE | 2018-03-08 10:21 | PROGRESS NOTE ---
DATE: 03/08/2018 SUBJECTIVE: This morning, Mr. Quan refers to be doing a lot better. Still has some residual shortness of breath. The left-sided chest pain has significantly improved. OBJECTIVE: Vital Signs: Blood pressure is 169/65, pulse is 71, respirations are 22, temperature is 96.7 degrees, patient was saturating 96% on room air. General Examination: Mr. Quan is a 77- year-old, gentleman. He was in bed. Did not seem to be in any cardiopulmonary distress. HEENT: Mucosa is pink and moist. Anicteric. Acyanotic. Neck: Supple. No JVD. Respiratory System: Air entry was bilaterally reduced. There is still a prolonged expiratory phase of respiration. I did not hear much wheezing and no crackles. Cardiovascular: Regular rate and rhythm. No murmurs, no rubs, no gallops. GI: Abdomen was soft and nontender. Bowel sounds present. Extremities: No pedal edema. Distal pulses were present. STAFFING ANALYST: The patient was awake, alert, and oriented. There was no focal neurological deficit. Musculoskeletal: There is an old sternotomy scar on the anterior mid chest wall. Laboratory Data: No recent lab work. A chest x-ray this morning shows COPD changes and decrease in the left basilar infiltrate compared to prior. His sputum culture is still pending. ASSESSMENT: 1. Pleuritic chest pain secondary to pneumonia. 2. Multifocal pneumonia. Patient was on Levaquin and Zyvox. Zosyn was added yesterday by pulmonary medicine. 3. Chronic obstructive pulmonary disease exacerbation. We will continue with the current antibiotic coverage, bronchodilation therapy, and steroids. 4. History of coronary artery disease, status post coronary artery bypass graft. Patient is currently asymptomatic. 5. 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 Cardiology is on board. Patient has been evaluated by Dr. Ramirez. Some changes have been done to his medications and he has been advised to follow up with Dr. Pino in [place]. 6. Acute hypoxemic respiratory failure secondary to chronic obstructive pulmonary disease exacerbation and bilateral pneumonia. The patient is currently saturating appropriately on even room air. We will get respiratory therapy to walk him and see if there is any drop in his oxygen saturation to qualify him for home oxygenation. PLAN: In general, I think Mr. Quan is getting better. We are still pending the sputum culture. There is a concern that he was falling at home so we will get physical therapy to see him today. If it is okay with pulmonary medicine and cardiology, I think we will be able to discharge Mr. Quan on oral antibiotics, for him to follow up with his primary and with his engineering department chair on an outpatient basis. His disposition is going to depend on PT evaluation and also final recommendations from the other subspecialties. cc: Chaparro Wells MD
[2018-03-08] MEDS: LEVAQUIN 750 MG/D5W 750 MG/150 ML IVPB IV SCH (13:23)
--- NOTE | 2018-03-08 14:38 | CARDIOLOGY PROGRESS NOTE ---
DATE: 03/08/2018 SUBJECTIVE: Mr. Quan reports he is doing well. He has no orthopnea. He is lying fast flat and breathing well. No chest pain. OBJECTIVE: Vital Signs: He is afebrile. Heart rate is 66. His blood pressure is 153/51. General: He is in no acute distress. Cardiovascular: He sounds to be in a regular rate and rhythm. I do not hear any murmurs. He has no S3. He has no lower extremity edema. Respiratory: His chest exam has mild reduction in breath sounds in the bilateral bases but otherwise unremarkable. PERTINENT DATA: He has no recent laboratory data. He does have a chest x-ray today showing COPD changes with a decrease in the left basilar infiltrate compared to prior. ASSESSMENT: Mr. Quan is a 77-year-old, black male with a history of ischemic cardiomyopathy. PLAN: He will continue on carvedilol. I will do a minor up titration of his Entresto. At this point, he can be discharged from a cardiovascular standpoint and can follow up in [place] with his established master baker. Please contact us if we can be of further assistance with this patient. cc: Amrik Ramirez MD
[2018-03-08] MEDS: MORPHINE IV PRN (15:25)
--- NOTE | 2018-03-08 17:08 | PULMONOLOGY PROGRESS NOTE ---
DATE: 03/08/2018 SUBJECTIVE: The patient reports he feels better. He continues to have cough with some sputum production. OBJECTIVE: The patient has been afebrile for the last 24 hours. Blood pressure is 153/51, heart rate 66, respiratory rate 16, oxygen saturation 98%. HEENT: Pupils are equal and reactive. Oropharynx is clear. Neck is supple. Chest reveals bilateral rhonchi. Cardiac: S1, S2. Abdomen is soft and without hepatosplenomegaly. Extremities without edema. DIAGNOSTIC DATA: Sputum culture is pending. Chest x-ray reveals decreasing infiltrate at the left base without complete resolution. IMPRESSION: A 77 year old with COPD, ongoing tobacco use, acute hypoxemic respiratory failure, with bilateral pneumonia. He is having some clinical improvement. RECOMMENDATIONS: 1. Continue current antibiotic regimen. 2. Continue bronchial hygiene. 3. Encourage smoking cessation. 4. Wean oxygen as tolerated. cc: Jones Hernandez MD
[2018-03-08] MEDS: LIPITOR PO SCH (20:22)
[2018-03-08] MEDS: ENTRESTO 49 MG-51 MG TABLET PO SCH (20:22)
[2018-03-09] MEDS: ZOSYN 3.375 GM in NS 50 ML IV SCH ×5 (02:46→21:14)
[2018-03-09] MEDS: SOLU-MEDROL IV SCH ×3 (02:46→21:13)
[2018-03-09] MEDS: XOPENEX NEB INH SCH ×6 (03:30→23:20)
[2018-03-09] MEDS: ENTRESTO 49 MG-51 MG TABLET PO SCH ×2 (09:58→20:01)
[2018-03-09] MEDS: ZYVOX PO SCH ×2 (09:58→20:01)
[2018-03-09] MEDS: LASIX PO SCH (09:58)
[2018-03-09] MEDS: NORVASC PO SCH (09:58)
[2018-03-09] MEDS: LOVENOX SUBQ SCH (09:59)
[2018-03-09] MEDS: COREG PO SCH ×4 (09:59→21:13)
[2018-03-09] MEDS: ASPIRIN PO SCH (09:59)
[2018-03-09] MEDS: NS NEB INH SCH ×2 (10:29→15:00)
[2018-03-09] MEDS: MORPHINE IV PRN ×2 (12:25→19:57)
--- NOTE | 2018-03-09 16:41 | PROGRESS NOTE ---
DATE: 03/09/2018 SUBJECTIVE: Patient resting comfortably. Not in any obvious distress. OBJECTIVE: Vital signs: Temperature 98.2 degrees, pulse 71, respiratory 18, blood pressure is 115/60, oxygen saturating 100%. HEENT: Atraumatic, normocephalic. Cardiovascular: S1, S2. Respiratory: Has evidence of good entry bilaterally. Abdomen: Soft, nontender. No masses felt. Extremities: No evidence of edema. Central nervous system: No obvious focal deficit noted. LABORATORY DATA: None. ASSESSMENT AND PLAN: 1. Multifocal pneumonia. Continue current antibiotic regimen. Follow up on sputum and also blood cultures. 2. Chronic obstructive pulmonary disease exacerbation. Maintain patient on nebulized bronchodilators, as well as steroids. 3. Coronary artery disease status post coronary artery bypass graft. Asymptomatic. Cardiology following. 4. Severe dilated ischemic cardiomyopathy with ejection fraction of about 30%. Cardiology following. 5. Deep vein thrombosis prophylaxis. Lovenox. 6. Gastrointestinal prophylaxis proton pump inhibitors . cc: Dajuan Cody MD
[2018-03-09] MEDS: LEVAQUIN 750 MG/D5W 750 MG/150 ML IVPB IV SCH (17:06)
[2018-03-09] MEDS: LIPITOR PO SCH (20:01)
--- NOTE | 2018-03-09 20:14 | PULMONOLOGY PROGRESS NOTE ---
DATE: 03/09/2018 SUBJECTIVE: The patient is awake, alert, and conversant. He does have a cough and is having difficulty clearing his secretions. OBJECTIVE: The patient has been afebrile for the last 24 hours. Blood pressure is 115/63, heart rate 71, respiratory rate 16, oxygen saturation 100% on room air. HEENT: Pupils are equal and reactive. Oropharynx is clear. Neck is supple. Chest reveals prolonged expiratory phase with scattered rhonchi. Cardiac exam: S1, S2. Abdomen is soft and without hepatosplenomegaly. Extremities are without edema. LABORATORY DATA: No new microbiology data. No new CBC data. IMPRESSION: A 77 year old with chronic obstructive pulmonary disease, multifocal bilateral pneumonia, ongoing tobacco use with acute hypoxemic respiratory failure. He appears to have continued slow improvement. RECOMMENDATIONS: 1. Continue current antibiotic regimen. 2. Continue bronchial hygiene. 3. Encourage smoking cessation. 4. Wean oxygen as tolerated. 5. Two-view chest x-ray tomorrow. cc: Jones Hernandez MD
[2018-03-10] MEDS: XOPENEX NEB INH SCH ×4 (03:25→23:50)
[2018-03-10] MEDS: ZOSYN 3.375 GM in NS 50 ML IV SCH ×4 (03:57→22:23)
[2018-03-10] MEDS: SOLU-MEDROL IV SCH ×4 (04:01→22:22)
[2018-03-10] MEDS: PROTONIX PO SCH (06:19)
[2018-03-10 06:25] LABS: EOS# 0.03 X1000 (0.0-0.7); EOS% 0.2 % (0.0-10.0); HEMATOCRIT 39.6 % (42.0-52.0); HEMOGLOBIN 12.9 g/dL (14.0-18.0); IMM GRAN# 0.03 X1000 (0.0-0.04); IMM GRAN% 0.2 % (0.0-0.5); LYMPH# 0.89 X1000 (1.2-3.4); LYMPH% 6.4 % (20.5-51.1); MCH 29.6 PG (27-31); MCHC 32.6 g/dL (33-37); MCV 90.8 FL (81-99); MONO# 0.56 X1000 (0.11-0.59); MPV 9.6 FL (7.4-10.4); NEUT# 12.47 X1000 (1.4-6.5); NEUT% 89.2 % (42.2-75.2); PLT 492 X1000 (130-400); RBC 4.36 XMIL (4.7-6.1); RDW 13.7 % (11.5-14.5); WBC 13.98 X1000 (4.8-10.8)
[2018-03-10 06:37] LABS: AGAP 14; ALB/GLOB RATIO 0.8; ALBUMIN 2.7 g/dL (3.5-5.0); ALKALINE PHOSPHATASE 61 U/L (32-122); BUN 34 mg/dL (8-22); CALCIUM 7.8 mg/dL (8.8-10.2); CHLORIDE 104 mmol/L (98-107); COSMO 290; ESTIMATED GFR > 60; GLUCOSE 116 mg/dL (70-104); GOT 43 U/L (10-34); GPT 53 U/L (10-44); POTASSIUM 4.1 mmol/L (3.5-5.1); SODIUM 141 mmol/L (136-145); TCO2 23 mmol/L (25-35); TOTAL BILIRUBIN < 0.15 mg/dL (0.20-1.00); TOTAL PROTEIN 6.1 g/dL (6.3-8.3)
[2018-03-10 06:41] LABS: LYMPHS 8 % (21-51); MONO 20 % (1-9); SEGS 72 % (42-75)
--- NOTE | 2018-03-10 07:51 | Diag Imaging Result Doc PS360 ---
EXAM: CHEST-2 VIEWS 03/10/2018 HISTORY: pneumonia TECHNIQUE: PA and lateral chest COMMENT: There is atelectasis versus pneumonia in the left lower lobe. There is COPD. Compared to 03/08/2018 there has been no appreciable change. IMPRESSION: Left lower lobe bronchopneumonia. Electronically signed by Frederic Oneill 03/10/2018 7:48 AM
[2018-03-10] MEDS: NORVASC PO SCH (09:14)
[2018-03-10] MEDS: ASPIRIN PO SCH (09:14)
[2018-03-10] MEDS: ENTRESTO 49 MG-51 MG TABLET PO SCH ×2 (09:14→22:23)
[2018-03-10] MEDS: COREG PO SCH ×4 (09:14→22:28)
[2018-03-10] MEDS: ZYVOX PO SCH ×2 (09:15→22:23)
[2018-03-10] MEDS: LASIX PO SCH (09:15)
[2018-03-10] MEDS: LOVENOX SUBQ SCH (09:16)
[2018-03-10] MEDS: MORPHINE IV PRN ×2 (09:24→14:00)
--- NOTE | 2018-03-10 12:34 | PROGRESS NOTE ---
DATE: 03/10/2018 SUBJECTIVE: The patient is awake. Not in any obvious distress. OBJECTIVE: Vital Signs: Temperature 97.9. Pulse is [*]. Respiratory rate is 20. Blood pressure is 155/51. Oxygen saturation is 97%. HEENT: Patient is atraumatic, normocephalic. Cardiovascular: S1, S2. Respiratory: No rales or rhonchi noted. Abdomen: Soft, nontender. No masses felt. Extremities: No evidence of edema. Central nervous system: No obvious focal deficits noted. LABS: WBC 13.9, hematocrit 39.6 with a platelet count of 492,000. Sodium is 141, potassium 4.1, chloride is [*] bicarb is 23, BUN is 34, creatinine 1.0. AST is 43. ALT is 53. ASSESSMENT AND PLAN: 1. Multifocal pneumonia. Continue antibiotics. Follow up on blood cultures. Sputum culture shows 1+ gram-positive cocci and 2+ gram-positive rods. 2. Chronic obstructive pulmonary disease. Continue nebulized bronchodilators as well as steroids. 3. Coronary artery disease, asymptomatic. Cardiology following. 4. Severe dilated ischemic cardiomyopathy with ejection fraction of about 30%. Cardiology following. 5. Abnormal liver function test. We will check hepatitis panel, as well as abdominal ultrasound. 6. Deep vein thrombosis prophylaxis. Lovenox. 7. Gastrointestinal prophylaxis. Proton-pump inhibitor. cc: Dajuan Cody MD
--- NOTE | 2018-03-10 15:51 | Diag Imaging Result Doc PS360 ---
EXAM: US ABDOMEN-COMPLETE HISTORY: abnoraml LFTS TECHNIQUE: Abdominal ultrasound COMPARISON: None. FINDINGS: Normal pancreas. No abdominal aortic aneurysm in proximal and mid aorta. Distal aorta is obscured. There is at least moderate atherosclerosis. No focal hepatic abnormality. Normal right kidney. No hydronephrosis. Normal inferior vena cava. The gallbladder is partly contracted. No stones. The common bile duct measures 2 mm. There are small renal cysts. No hydronephrosis. The spleen is not enlarged. No ascites. IMPRESSION: 1.Atherosclerosis 2.Small renal cysts Electronically signed by Gael Burrell 03/10/2018 3:48 PM
[2018-03-10] MEDS: LEVAQUIN 750 MG/D5W 750 MG/150 ML IVPB IV SCH (16:56)
[2018-03-10] MEDS: LIPITOR PO SCH (22:23)
[2018-03-11] MEDS: XOPENEX NEB INH SCH ×8 (03:55→23:03)
[2018-03-11] MEDS: ZOSYN 3.375 GM in NS 50 ML IV SCH ×4 (04:24→21:59)
[2018-03-11] MEDS: PROTONIX PO SCH (06:24)
[2018-03-11] MEDS: SOLU-MEDROL IV SCH ×3 (06:25→22:00)
--- NOTE | 2018-03-11 07:46 | PULMONOLOGY PROGRESS NOTE ---
DATE: 03/10/2018 SUBJECTIVE: Patient is awake, alert and conversant. He reports he has occasional shortness of breath but overall he feels better today. OBJECTIVE: VITAL SIGNS: Blood pressure 117/51, heart rate 58, respiratory rate 20, oxygen saturation 98% on 2 L per nasal cannula. HEENT: Pupils are equal and reactive. Oropharynx is clear. NECK: Supple. CHEST: Reveals crackles at the left base. CARDIAC: S1, S2. ABDOMEN: Soft and without hepatosplenomegaly. EXTREMITIES: Without edema. LABORATORIES: White blood count 13.98, hemoglobin 12.9, platelet count 492,000. Sodium 141, potassium 4.1, chloride 104, bicarbonate 23, BUN 34, creatinine 1.0. Chest x-ray reveals continued infiltrate in the left lower lobe. MICROBIOLOGY: Sputum cultures are pending. IMPRESSION: 77-year-old with COPD, ongoing tobacco use, pneumonia with acute hypoxemic respiratory failure. He continues to have slow clinical improvement. RECOMMENDATIONS: 1. Continue current antibiotic regimen. 2. Continue bronchial hygiene. 3. Continue to encourage smoking cessation. 4. Wean oxygen as tolerated. cc: Jones Hernandez MD
[2018-03-11] MEDS: ZYVOX PO SCH ×2 (09:35→21:59)
[2018-03-11] MEDS: LASIX PO SCH (09:35)
[2018-03-11] MEDS: COREG PO SCH ×4 (09:35→21:59)
[2018-03-11] MEDS: NORVASC PO SCH (09:36)
[2018-03-11] MEDS: MORPHINE IV PRN ×2 (09:36→22:04)
[2018-03-11] MEDS: LOVENOX SUBQ SCH (09:36)
[2018-03-11] MEDS: ENTRESTO 49 MG-51 MG TABLET PO SCH ×2 (09:36→21:59)
[2018-03-11] MEDS: ASPIRIN PO SCH (09:36)
--- NOTE | 2018-03-11 16:09 | PROGRESS NOTE ---
DATE: 03/11/2018 SUBJECTIVE: Patient resting in bed. Not in any obvious distress. OBJECTIVE: Vital signs: Temperature 97.9 degrees, pulse 67, respiratory rate 16, blood pressure 164/66, oxygen saturation 97%. HEENT: Atraumatic, normocephalic. Cardiovascular: S1, S2. Respiratory: Good air entry bilaterally. Abdomen: Soft, nontender. No masses felt. Extremities: No evidence of edema. Central nervous system: No obvious focal deficit noted. LABORATORY DATA: None. ASSESSMENT AND PLAN: 1. Multifocal pneumonia. Continue antibiotics. 2. Chronic obstructive pulmonary disease. Continue nebulized bronchodilators as well as steroids. 3. Coronary artery disease. Asymptomatic. Cardiology following. 4. Severely dilated ischemic cardiomyopathy with ejection fraction of about 30%. Cardiology following. 5. Abnormal liver function tests. Follow up on hepatitis panel as well as abdominal ultrasound. 6. Deep vein thrombosis prophylaxis. Lovenox. 7. Gastrointestinal prophylaxis. Proton pump inhibitor. DISPOSITION: Awaiting rehab placement. cc: Dajuan Cody MD
[2018-03-11] MEDS: LEVAQUIN 750 MG/D5W 750 MG/150 ML IVPB IV SCH (16:57)
[2018-03-11] MEDS: LIPITOR PO SCH (21:59)
[2018-03-12] MEDS: XOPENEX NEB INH SCH ×3 (03:20→11:49)
[2018-03-12] MEDS: ZOSYN 3.375 GM in NS 50 ML IV SCH ×2 (04:45→10:00)
--- NOTE | 2018-03-12 05:13 | PULMONOLOGY PROGRESS NOTE ---
DATE: 03/11/2018 SUBJECTIVE: Patient reports he is doing well. He has minimal sputum production. OBJECTIVE: Vital signs: The patient has been afebrile for the last 24 hours. Vital signs: Blood pressure 140/66, heart rate 67, respiratory rate 20, oxygen saturation 97% on room air. HEENT: Pupils are equal and reactive. Oropharynx is clear. Neck: Supple. Chest: Reveals good air entry bilaterally with decreased breath sounds, left base. Cardiac: S1, S2. Abdomen: Soft, without hepatosplenomegaly. Extremities: Without edema. LABORATORIES: No new microbiology data. No CBC or chemistries. IMPRESSION: 1. A 77-year-old with chronic obstructive pulmonary disease. 2. Pneumonia comma. 3. Dilated cardiomyopathy. 4. Ongoing tobacco use. RECOMMENDATION: 1. Continue current antibiotic regimen. 2. Continue bronchial hygiene. 3. Followup chest x-ray tomorrow morning. 4. Encouraged smoking cessation. 5. Anticipate discharge to home for rehabilitation in the near future. cc: Jones Hernandez MD
[2018-03-12] MEDS: SOLU-MEDROL IV SCH (05:43)
[2018-03-12] MEDS: PROTONIX PO SCH ×2 (05:43→07:52)
--- NOTE | 2018-03-12 08:30 | Diag Imaging Result Doc PS360 ---
EXAM: CHEST-2 VIEWS HISTORY: abnormal exam TECHNIQUE: Chest two views COMPARISON: 03/10/2018 FINDINGS: The lungs are hyperexpanded. There are sternal wires and surgical clips. No cardiomegaly. The pulmonary vessels are small. No pleural effusions. Atelectasis versus small infiltrates in the lung bases. IMPRESSION: Emphysema with basilar atelectasis versus infiltrates Electronically signed by Gael Burrell 03/12/2018 8:28 AM
[2018-03-12] MEDS: NORVASC PO SCH (09:50)
[2018-03-12] MEDS: COREG PO SCH ×2 (09:50)
[2018-03-12] MEDS: ASPIRIN PO SCH (09:50)
[2018-03-12] MEDS: LASIX PO SCH (09:50)
[2018-03-12] MEDS: ZYVOX PO SCH (09:51)
[2018-03-12] MEDS: LOVENOX SUBQ SCH (09:51)
[2018-03-12] MEDS: ENTRESTO 49 MG-51 MG TABLET PO SCH (09:51)
[2018-03-12 11:37] VITALS: BP 138/48
--- NOTE | 2018-03-12 13:15 | Diag Imaging Result Doc PS360 ---
EXAM: CT HEAD W/O CONTRAST HISTORY: encephalopathy TECHNIQUE: CT head without contrast COMPARISON: 02/15/2018 FINDINGS: No parenchymal hemorrhage. No epidural or subdural hematoma. No subarachnoid hemorrhage. There is atrophy with chronic microvascular ischemic changes. No mass identified on this noncontrasted exam. No hydrocephalus. No sinus opacification. IMPRESSION: 1.No hemorrhage 2.Prominent atrophy with chronic microvascular ischemic changes This exam was performed using automated exposure control, adjustment of mA or kV according to patient size, and/or use of iterative reconstruction technique. Electronically signed by Gael Burrell 03/12/2018 1:12 PM
[2018-03-12 13:34] LABS: HEPATITIS PROFILE ACUTE SEE COMMENTS
--- NOTE | 2018-03-13 09:32 | DISCHARGE SUMMARY ---
ADMISSION DATE: 03/05/2018 DISCHARGE DATE: 03/12/2018 PRINCIPAL DIAGNOSIS: Atypical chest pain. SECONDARY DIAGNOSES: 1. Probable pneumonia. 2. Chronic obstructive pulmonary disease. 3. Hypertensive heart disease. 4. Coronary artery disease. 5. Hyperlipidemia. 6. Recent history of cocaine abuse. 7. [*]history. Possible alcoholism. DISCHARGE MEDICATIONS: 1. Coreg 3.125 mg p.o. twice a day. 2. Lasix 40 mg p.o. daily. 3. Pantoprazole 40 mg p.o. daily. 4. Entresto 49/51, one daily. 5. Aspirin 81 mg once a day. 6. Pravastatin 8 mg p.o. daily. 7. Burdine 7.325 as needed. CONSULTATIONS DONE DURING THIS HOSPITAL STAY: Dr. Amrik Ramirez, Cardiology. Dr. Jones Hernandez, Pulmonology. PROCEDURES DONE DURING THIS HOSPITAL STAY: 2D echocardiogram on 03/06/2018. HOSPITAL COURSE: Mr. Dami ERICKSON is a 77-year-old male who was admitted to the hospital because of chest pain. Troponins noted to be negative. He had a CTA of the chest which showed significant COPD as well as airspace consolidation in the lung base along with cardiomegaly and also ascending aortic aneurysm. The patient had a 2D echo of the heart. That showed estimated ejection fraction of about 35% to 40% percent with global hypokinesis. The patient was seen by the cardiology team. No major intervention done. Also seen by the Pulmonology team with regards to COPD. The initial plan was to have the patient transferred to the rehab, however, the patient's insurance would not approve. As such, the patient will be discharged home with home health services. DISCHARGE PHYSICAL EXAMINATION: Vital Signs: During my evaluation today, the vital signs as follows: Temperature 97.9 degrees, pulse 40, respirations 18, blood pressure 130/48, oxygen saturation is 96%. HEENT: Atraumatic. Normocephalic. Cardiovascular: S1, S2. Respiratory: Good entry bilaterally. Abdomen: Soft, nontender. No masses felt. Extremities: No evidence of edema. Central nervous system: No obvious focal deficit noted. PLAN: Discharge home with home health services. The patient does have an ascending aortic aneurysm and will need to follow up with the cardiothoracic surgeon as an outpatient. Take discharge medications and follow up with primary care physician as well. cc: Dajuan Cody MD
== END 2018-03-12 13:21 | disposition home or self-care (01) | DRG 194 ==
LOC: ED 17:44 → SUATTDRO 20:46 → 3S 20:46 → 4N 03-06 19:03
PROVIDERS: ATTEND Internal Medicine
CPT/HCPCS: 36415; 70450; 71020; 71046; 71275; 76700; 80048; 80053; 80061; 80074; 80101; 80301; 80307; 80324; 80345; 80346; 80353; 80358; 80361; 80365; 82550; 82805; 83735; 83880; 83992; 84484; 85025; 85610; 85730; 86140; 87040; 87070; 87205; 93005; 93010; 93308; 94640; 94761; 96374; 97162; 97530; 99285; A9270; G0431; G0434; G0479; G0480; J1650; J1956; J2270; J2543; J2920; J3411; Q9967

== ENCOUNTER 2018-03-24 16:52 | Observation (INO) ==
[2018-03-24] MEDS ORDERED: ASPIRIN PR ONE (17:01)
[2018-03-24] MEDS ORDERED: ASPIRIN PO ONE (17:01)
--- NOTE | 2018-03-24 17:27 | ED EKG INTERP ---
This chart was entered by Yudelka Hunter Scribe, acting as scribe for Jones Dinh MD. EKG Interpretation - EKG Time of EKG reading by physician:: 17:01 EKG Read and Signed by:: Jones Dinh EKG Interpretation (*Must complete 3 of following elements*): Abnormal (rhythm - sinus rhythm with 2nd degree AV block ([place]) with occasional premature ventricular complexes; ST & T wave abnormality, consider inferior ischemia; prolonged QT) Rate: 81 Comments: voltage criteria for left ventricular hypertrophy; Attestation - Physician/ NIYA Attestation The physician spent face to face time with patient:: No Advanced Practice Provider documentation review:: Supervising physician onsite and consulted in the evaluation and care of this patient. The physician did not have a face to face encounter with the patient. This chart was documented by the indicated scribe, (Yudelka Hunter Scribe) and accurately reflects the services I performed and decisions made by me, Jones Dinh MD, as attested by the provider's signature.
--- NOTE | 2018-03-24 17:44 | Diag Imaging Result Doc PS360 ---
CHEST-2 VIEWS - 03/24/2018 INDICATION: CHEST PAIN/SOB COMPARISON: 03/12/2018 FINDINGS: There is a stable ill-defined infiltrate in the left lower lobe. Stable COPD. No pneumothorax or pleural effusion. Heart size remains borderline. IMPRESSION: Left lower lobe infiltrate suggesting pneumonia. COPD. Electronically signed by Delon Antonio 03/24/2018 5:42 PM
[2018-03-24 19:22] LABS: BASO# 0.01 X1000 (0.0-0.2); BASO% 0.1 % (0.0-0.8); EOS# 0.01 X1000 (0.0-0.7); EOS% 0.1 % (0.0-10.0); HEMATOCRIT 36.7 % (42.0-52.0); HEMOGLOBIN 11.5 g/dL (14.0-18.0); IMM GRAN# 0.02 X1000 (0.0-0.04); IMM GRAN% 0.2 % (0.0-0.5); LYMPH# 1.23 X1000 (1.2-3.4); LYMPH% 12.1 % (20.5-51.1); MCH 28.5 PG (27-31); MCHC 31.3 g/dL (33-37); MCV 90.8 FL (81-99); MONO# 0.48 X1000 (0.11-0.59); MONO% 4.7 % (1.7-9.3); NEUT% 82.8 % (42.2-75.2); PLT 340 X1000 (130-400); RBC 4.04 XMIL (4.7-6.1); RDW 14.4 % (11.5-14.5); WBC 10.15 X1000 (4.8-10.8)
[2018-03-24 19:33] LABS: PTT 27.3 Seconds (22.3-41.8)
[2018-03-24] MEDS ORDERED: ROCEPHIN 1 GM in NS 50 ML IV ONE (19:42)
[2018-03-24] MEDS ORDERED: ZITHROMAX 500 MG/NS 500 MG/250 ML IVPB IV ONE (19:46)
[2018-03-24] MEDS ORDERED: MORPHINE IV ONE (19:49)
[2018-03-24] MEDS ORDERED: ZOFRAN IV ONE (19:50)
[2018-03-24 19:52] LABS: AGAP 13; ALB/GLOB RATIO 1.1; ALBUMIN 3.5 g/dL (3.5-5.0); ALKALINE PHOSPHATASE 91 U/L (32-122); BUN 16 mg/dL (8-22); CALCIUM 8.8 mg/dL (8.8-10.2); CHLORIDE 112 mmol/L (98-107); CK PROFILE 61 U/L (24-204); COSMO 295; ESTIMATED GFR > 60; GLUCOSE 119 mg/dL (70-104); GOT 19 U/L (10-34); GPT 15 U/L (10-44); POTASSIUM 4.7 mmol/L (3.5-5.1); SODIUM 147 mmol/L (136-145); TCO2 22 mmol/L (25-35); TOTAL BILIRUBIN 0.16 mg/dL (0.20-1.00); TOTAL PROTEIN 6.7 g/dL (6.3-8.3)
--- NOTE | 2018-03-24 19:55 | PROVIDER DOCUMENTATION ---
This chart was entered by Jose Mueller Scribe, acting as scribe for Tl Herrera MD. HPI-Chest Pain - General Chief Complaint: Chest Pain Stated Complaint: CP Time Seen by Provider: 03/24/18 19:01 Source: patient Allergies/Adverse Reactions: Patient Allergies Allergy/AdvReac Type Severity Reaction Status Date / Time No Known Allergies Allergy Verified 03/05/18 18:57 Home Medications: Home Medication List Medication Instructions Recorded Confirmed Last Taken Type Losartan [Cozaar] 50 mg PO BID #60 tab 07/21/17 03/05/18 03/05/18 Rx Hydrocodone/Acetaminophen [[place] 7.5 mg pe PO PRN PRN 02/13/18 02/13/18 Unknown History 7.5-325 Tablet] Amlodipine [Norvasc] 5 mg PO BID #60 tab 02/16/18 03/05/18 03/05/18 Rx ATORVAstatin [Lipitor] 80 mg PO HS tablet 03/12/18 Unknown Rx Aspirin 81 mg PO DAILY chewtab 03/12/18 Unknown Rx Carvedilol [Coreg] 3.125 mg PO BID tablet 03/12/18 Unknown Rx Furosemide [Lasix] 40 mg PO DAILY tablet 03/12/18 Unknown Rx Pantoprazole [Protonix] 40 mg PO DAILY@0700 tablet 03/12/18 Unknown Rx Sacubitril/Valsartan [Entresto 49 1 each PO BID tablet 03/12/18 Unknown Rx mg-51 mg Tablet] - History of Present Illness-CP Nature of Presenting Problem: Pt is a 77 y/o M presents to the ED with chest pain described as sharp/tight that began this am at 7 that is 10 out of 10. He reports a cough, SOB and sore throat. Son is present and reports pt was released 12 days ago for COPD, CHF and fluid around the heart. Pt reports he has not follow up in [place] as he was asked to at discharge. Location: reports: substernal Chest Pain Radiation: reports: no radiation Quality of Pain: reports: sharp, tightness Severity in ED: severe Onset/Duration: this morning Timing: still present Context/Activities at Onset: reports: none Modifying Factors: improves with: nothing Associated Symptoms: reports: diaphoresis, shortness of breath. denies: dizziness, edema, vomiting Nitro Today/Relief: no nitro taken today Aspirin Treatment Today: no aspirin today Similar Symptoms Previously?: Yes Recently Seen Here or By Another Healthcare Provider: Yes Review of Systems - Adult - REVIEW OF SYSTEMS - ADULT Constitutional: denies: chills, fever Eyes: reports: no symptoms reported Ears, Nose, Mouth & Throat: reports: throat pain. denies: ear pain, sinus problem Cardiovascular: reports: chest pain. denies: edema Respiratory: reports: cough, shortness of breath. denies: wheezing Gastrointestinal: denies: abdominal pain, nausea, vomiting Genitourinary: denies: dysuria, flank pain Musculoskeletal: denies: back pain, joint pain, neck pain Integumentary: reports: no symptoms reported Neurological: denies: dizziness/vertigo, headache/migraines Psychiatric: reports: no symptoms reported Endocrine: reports: no symptoms reported Hematologic/Lymphatic: reports: no symptoms reported Allergic/Immunologic: reports: no symptoms reported All Other Systems: Reviewed and Negative Past History - Adult - PAST MEDICAL HISTORY-ADULT Review of Records: reports: Old Records Reviewed, Nursing Assessment Review, Medications Reviewed Major Childhood Illnesses: reports: denies history. denies: Influenza Cardiovascular: reports: CAD, CHF, HTN, hyperlipidemia, [place] Respiratory: reports: asthma, COPD, sleep apnea Gastrointestinal: reports: GERD Obstetrical/Gynecological: reports: denies history Genitourinary: reports: denies history Musculoskeletal: reports: denies history Neurological: reports: denies history Psychiatric: reports: denies history Endocrine/Immune: reports: thyroid disorder Other Conditions: reports: denies history, deaf/hard of hearing - PRIOR SURGERIES/PROCEDURES Surgical/Procedure History: reports: CABG - IMMUNIZATION STATUS Childhood Immunizations: See Nurse Assessment Flu Vaccine: See Nurse Assessment - FAMILY HISTORY Family History: reviewed, not pertinent - SOCIAL HISTORY Smoking: cigarettes, less than 1 pack/day Substance Use: alcohol Alcohol Use Frequency: occasionally Living Situation: family Physical Exam-General - PHYSICAL EXAM-ADULT Initial Vital Signs Reviewed: Yes - CONSTITUTIONAL General Appearance: appears well, alert, no apparent distress - EYES Eyes: PERRL/EOMI, pink conjunctivae - HEAD, EARS, NOSE, MOUTH & THROAT HENMT: moist mucous membranes, normal ENT inspection, pharynx normal - NECK Neck: non-tender, full range of motion, supple, normal inspection - RESPIRATORY Respiratory: chest non-tender, lungs clear, normal breath sounds, no pleuratic chest pain, no respiratory distress, no accessory muscle use - CARDIOVASCULAR Cardiovascular: normal peripheral pulses, regular rate, rhythm - GASTROINTESTINAL (ABDOMEN) Abdominal Exam: non tender, soft - MUSCULOSKELETAL Back Exam: normal inspection, no CVA tenderness, no vertebral tenderness Extremity: normal range of motion, non-tender, normal gait, normal inspection, no pedal edema - SKIN Integumentary: normal color, normal turgor, warm/dry - NEUROLOGIC Neurologic: grossly normal, no motor/sensory deficits - PSYCHIATRIC Psych/Mental Status: normal mood/affect, normal thought content, normal thought process, oriented x 3 Progress - PLAN OF CARE/RESULTS Progress/Plan/Lab Results: Vital Signs - 8 hr 03/24/18 16:57 Temperature 97.5 F L Pulse Rate 78 Respiratory Rate 18 Blood Pressure 159/68 O2 Sat by Pulse Oximetry 100 Laboratory Results - last 24 hr 03/24/18 03/24/18 03/24/18 17:06 17:06 17:06 WBC 10.15 RBC 4.04 L Hgb 11.5 L Hct 36.7 L MCV 90.8 MCH 28.5 MCHC 31.3 L RDW Std Deviation 14.4 Plt Count 340 MPV 10.0 Immature Gran % (Auto) 0.2 Neut % (Auto) 82.8 H Lymph % (Auto) 12.1 L [place] % (Auto) 4.7 Eos % (Auto) 0.1 Baso % (Auto) 0.1 Immature Gran # (Auto) 0.02 Neut # (Auto) 8.40 H Lymph # (Auto) 1.23 [place] # (Auto) 0.48 Eos # (Auto) 0.01 Baso # (Auto) 0.01 PT 14.0 INR 1.00 PTT (Actin FS) 27.3 Troponin T < 0.010 Orders Category Date Time Status Cardiac Monitoring DIRECTED Care 03/24/18 17:01 Active Oxygen Therapy- ED Nursing DIRECTED Care 03/24/18 17:01 Active Saline Loc NOW Care 03/24/18 17:01 Active CHEST-2 VIEWS [RAD] Stat Exams 03/24/18 17:01 Completed BLOOD CULTURE [BLDCUL] Stat Lab 03/24/18 19:42 Uncollected CBC WITH ELECTRONIC DIFF [HEME] Stat Lab 03/24/18 17:06 Completed CK PROFILE [SP CHEM] Stat Lab 03/24/18 17:06 Completed COMPREHENSIVE METABOLIC PANEL [CHEM] Stat Lab 03/24/18 17:06 Completed PRO B-NATRIURETIC PEPTIDE Stat Lab 03/24/18 17:06 Received PROTIME WITH INR [COAG] Stat Lab 03/24/18 17:06 Completed PTT [COAG] Stat Lab 03/24/18 17:06 Completed TROPONIN T Stat Lab 03/24/18 17:06 Completed Aspirin Med 03/24/18 17:01 Discontinued 300 mg [place] NOW ONE Aspirin Med 03/24/18 17:01 Discontinued 325 mg PO NOW ONE Azithromycin 500 mg/Ns [Zithromax 500 mg/Ns] Med 03/24/18 19:46 Active 500 mg in 250 ml IV NOW CefTRIAXONE [Rocephin] 1 gm Med 03/24/18 19:42 Active 0.9% Sodium Chloride Inj [Ns] 50 ml IV NOW Morphine Med 03/24/18 19:49 Discontinued 2 mg IV NOW ONE Ondansetron [Zofran] Med 03/24/18 19:50 Discontinued 4 mg IV NOW ONE CP/SOB/Palp >45 yrs of Age Stat Oth 03/24/18 17:01 Ordered EKG [EKG] Stat Ther 03/24/18 17:01 Ordered Result Diagrams: 03/24/18 17:06 - XRAY 1 XRAY Study: Chest Impression: Abnormal (CHEST-2 VIEWS - 03/24/2018 INDICATION: CHEST PAIN/SOB COMPARISON: 03/12/2018 FINDINGS: There is a stable ill-defined infiltrate in the left lower lobe. Stable COPD. No pneumothorax or pleural effusion. Heart size remains borderline. IMPRESSION: Left lower lobe infiltrate suggesting pneumonia. COPD. Electronically signed by Delon Antnoio 03/24/2018 5:42 PM) - CONSULTS/PCP/HOSPITALIST Notification #1 *Consult/PCP/Hospitalist*: Hospitalist- Dr Milton Time Discussed: 19:45 Reason/Comments: admission Consult Disposition: Will see in ED Departure - Departure Date of Disposition Decision: 03/24/18 Time of Disposition Decision: 19:55 DIAGNOSIS: LLL pneumonia Qualifiers: Pneumonia type: due to unspecified organism Qualified Code(s): J18.1 - Lobar pneumonia, unspecified organism Chest pain Qualifiers: Chest pain type: unspecified Qualified Code(s): R07.9 - Chest pain, unspecified Disposition: ADMITTED INPATIENT 09 Certified Medical Emergency: Emergent Condition: Stable Referrals and Follow-Ups: Ever Farrell MD [Primary Care Provider] - - Critical Care Note This patient required my direct & personal management of CC.: No Attestation - Physician/ NIYA Attestation Patient care was provided by Advanced Practice Provider:: No The physician spent face to face time with patient:: Yes Advanced Practice Provider documentation review:: Supervising physician onsite and consulted in the evaluation and care of this patient. The physician did have a face to face encounter with the patient. This chart was documented by the indicated scribe, (Jose Mueller Scribe) and accurately reflects the services I performed and decisions made by me, Tl Herrera MD, as attested by the provider's signature.
[2018-03-24] MEDS ORDERED: MORPHINE ONE (20:18)
[2018-03-24] MEDS ORDERED: TYLENOL PO PRN (22:00)
[2018-03-24] MEDS: SOLU-MEDROL IV SCH (22:00)
[2018-03-24] MEDS: NORVASC PO SCH (22:00)
[2018-03-24] MEDS ORDERED: TESSALON PO PRN (22:00)
[2018-03-24] MEDS: COREG PO SCH (22:40)
[2018-03-24] MEDS: DUONEB (A & A) INH SCH (23:42)
[2018-03-25] MEDS ORDERED: MORPHINE ONE (00:56)
[2018-03-25] MEDS: ZOFRAN IV PRN ×2 (01:00→21:04)
[2018-03-25] MEDS: MORPHINE IV PRN ×8 (01:00→21:04)
[2018-03-25] MEDS: LIPITOR PO SCH ×2 (02:04→21:11)
[2018-03-25] MEDS: ENTRESTO 49 MG-51 MG TABLET PO SCH ×3 (02:04→21:11)
[2018-03-25] MEDS: COREG PO SCH ×3 (02:38→21:11)
[2018-03-25] MEDS: DUONEB (A & A) INH SCH ×6 (03:40→23:40)
[2018-03-25] MEDS ORDERED: NICODERM PATCH TD PRN (05:17)
[2018-03-25 06:38] LABS: BASO# 0.01 X1000 (0.0-0.2); BASO% 0.1 % (0.0-0.8); HEMATOCRIT 35.1 % (42.0-52.0); LYMPH# 0.75 X1000 (1.2-3.4); MCH 28.1 PG (27-31); MCHC 31.3 g/dL (33-37); MCV 89.8 FL (81-99); MONO# 0.15 X1000 (0.11-0.59); MPV 9.7 FL (7.4-10.4); NEUT# 6.57 X1000 (1.4-6.5); NEUT% 87.9 % (42.2-75.2); PLT 325 X1000 (130-400); RBC 3.91 XMIL (4.7-6.1); RDW 14.4 % (11.5-14.5); WBC 7.48 X1000 (4.8-10.8)
[2018-03-25] MEDS: PROTONIX PO SCH (06:49)
[2018-03-25] MEDS: LOVENOX SUBQ SCH (06:49)
[2018-03-25 07:23] LABS: AGAP 9; BUN 12 mg/dL (8-22); CALCIUM 8.9 mg/dL (8.8-10.2); CHLORIDE 109 mmol/L (98-107); COSMO 285; CREATININE 0.9 mg/dL (0.7-1.2); ESTIMATED GFR > 60; GLUCOSE 110 mg/dL (70-104); POTASSIUM 4.2 mmol/L (3.5-5.1); SODIUM 143 mmol/L (136-145); TCO2 25 mmol/L (25-35)
--- NOTE | 2018-03-25 07:48 | HISTORY AND PHYSICAL ---
PRIMARY CARE PROVIDER: Dr. Ever Farrell. CHIEF COMPLAINT: Shortness of breath and chest pain. HISTORY OF PRESENT ILLNESS: Mr. Quan is a 77-year-old male with a past medical history of coronary artery disease, status post coronary artery bypass grafting, chronic systolic heart failure, hypertensive heart disease, hyperlipidemia, and chronic low back pain. He was just recently discharged from our facility on 03/12/2018. During this admission, he was treated for pneumonia and COPD exacerbation. It looks as though during his admission, he was evaluated by Cardiology as well for his chest pain. He did have an echocardiogram performed which did show that he had an ejection fraction estimated to be 35%-40% range. Cardiology did make some adjustments to his medicines. They did discontinue his Cozaar and placed him on Entresto 49 mg/51 mg tablet 1 twice daily. They did continue his Lasix and Norvasc. They did make an adjustment to his Coreg, reducing the dose to 3.125 mg orally twice a day. The patient states that he did get discharged with antibiotic of Levaquin and his finished this full antibiotic dose at this time, though he did just recently start his methylprednisone steroid pack that he was given upon discharge. The patient states that this morning, he began having chest pain and shortness of breath. This morning, the patient did state that he began having shortness of breath as well as chest pain, which he describes is down his entire left side of his chest. He also reports he has had a productive cough with greenish colored sputum. He denies any fever, body aches or chills. He denies any orthopnea, paroxysmal nocturnal dyspnea, though does report that he has had dyspnea with exertion. The patient did state that he felt as though his bilateral lower extremities were slightly swollen as well, though he denies any headache, dizziness, abdominal pain. He did report some nausea though denies any vomiting or diarrhea. He denies any dysuria or urinary frequency. Then he reported swelling. Denies any other pain, numbness, or tingling in extremities. Upon evaluation in the ER, initial vital signs were temperature 97.5, heart rate 78, respirations 18, blood pressure 159/68, and oxygen saturation 100% on room air. EKG performed in the ER did report there was a sinus rhythm with a second degree AV block Mobitz type 1, though the EKG did have a lot of artifact noted. From what I can tell, the MT interval is consistent. There does appear to be a P-wave for every QRS though. The patient did have what looks like 2 unifocal PVCs present as well. The rate was 81 and QTC was 466. Chest x-ray did show that he had a left lower lobe infiltrate suggesting pneumonia. There were also COPD changes. There does not appear to be any pulmonary edema or vascular congestion present. The patient has not been febrile. His white blood cell count is 10,150. CK and troponin were negative at this time. His ProBNP was elevated at 9380. Other than this, his chemistries were pretty unremarkable. Upon my evaluation in the ER, the patient is reporting shortness of breath. He does have coarse lung sounds bilaterally though he is reporting some slight swelling in his lower extremities. He does appear to have some swelling though there is not any pitting edema noted at this time. Other than this, there are no symptoms that the patient is in CHF exacerbation. He is denying any paroxysmal nocturnal dyspnea or orthopnea. He is reporting some dyspnea on exertion. This may be related to his COPD and pneumonia. He did not have any JVD or hepatojugular reflux noted upon examination. His abdomen is not distended. Blood cultures and sputum cultures have been ordered. The patient will be admitted inpatient for further treatment and evaluation of his pneumonia, COPD, and chest pain. REVIEW OF SYSTEMS: A 14-point review of systems was conducted with the patient and all were negative except for pertinent positives mentioned above in HPI. PAST MEDICAL HISTORY: 1. Coronary artery disease status post coronary artery bypass grafting. 2. Chronic systolic heart failure with the last known ejection fraction of 35%-40% on 03/05/2018. 3. Hypertension. 4. Hyperlipidemia. 5. Chronic low back pain. PAST SURGICAL HISTORY: 1. Coronary artery bypass grafting. 2. Coronary stent placement. 3. Tonsillectomy. 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 He is denying any at this time. He is also reporting that since his most recent discharge, he is down to approximately 2 cigarettes per day. ALLERGIES: The patient has no known allergies. HOME MEDICATIONS: 1. Albuterol sulfate ProAir HFA inhaler 2 puffs inhaled p.r.n. 2. Norvasc 5 mg p.o. b.i.d. 3. Aspirin 81 mg p.o. daily. 4. Lipitor 80 mg p.o. nightly. 5. Coreg 3.125 mg p.o. b.i.d. 6. Lasix 40 mg p.o. daily. 7. [place] 7.5 mg p.o. p.r.n. for pain as directed. 8. Medrol Dosepak 4 mg p.o. as directed. 9. Protonix 40 mg p.o. daily. 10.Entresto 49 mg/51 mg tablet 1 p.o. b.i.d. DIAGNOSTIC STUDIES: White blood cell count 10,150, hemoglobin 11.5, hematocrit 36.7, platelet count 340. PT 14, INR 1, PTT 27.3. Sodium 147, potassium 4.7, chloride 112, serum bicarb 22, BUN 16, creatinine 1, GFR greater than 60, glucose 119, calcium 8.8, magnesium 2.1. Liver function tests within normal limits. CK 61, troponin less than 0.01. ProBNP is 1380. EKG as previously mentioned did report that the patient was in a second degree AV block Mobitz type 1, though EKG did have quite a bit of artifact. It does appear that the MT interval is consistent with a P-wave for every QRS. There are 2 unifocal PVCs present. Ventricular rate is 81 with a QTC of 466. Chest x-ray did show a left lower lobe infiltrate suggesting pneumonia as well as COPD changes. PHYSICAL EXAMINATION: VITAL SIGNS: Temperature 97.5, heart rate 70, respirations 21, blood pressure 161/92, oxygen saturation 97% nasal cannula at 2 liters. GENERAL: Mr. Quan is a pleasant 77-year-old male. He is resting on the ER stretcher. He was awake and alert, and able to answer questions appropriately. HEENT: Head is atraumatic, normocephalic. Pupils are equal, round and reactive to light, 3 mm bilaterally and brisk. Oral mucosa is moist. Oropharynx clear. NECK: Supple. Trachea midline. There is no JVD or hepatojugular reflux noted. CARDIOVASCULAR: The patient has S1 and S2. There are no No murmurs, gallops or rubs appreciated, with a regular rate and rhythm. PULMONARY: The patient has symmetrical chest expansion bilaterally. Lungs sounds in bilateral full watkins did sound coarse. ABDOMEN: Soft, nontender, nondistended. Bowel sounds were present in all four quadrant and were normoactive. EXTREMITIES: No cyanosis or clubbing noted. The patient did have some very slight swelling noted in bilateral lower extremities. There is no pitting edema noted at this time. Pulse, motor and sensory were intact in all extremities. Radial pulses and pedal pulses were 2+ bilaterally. INTEGUMENTARY: The patient's skin is pink, warm, and dry. NEUROLOGIC: The patient is alert and oriented to person, place, time, and situation. ASSESSMENT AND PLAN: 1. Left lower lobe pneumonia. For treatment of this, we have placed on the patient on antibiotic coverage with Rocephin and azithromycin. Blood cultures and sputum culture have been obtained. We will continue with scheduled DuoNeb treatments, incentive spirometry and encouragement to frequently turn, cough, and deep breathe. The patient is maintaining adequate oxygen saturations with minimal oxygen at 2 liters nasal cannula, though he is reporting that he feels short of breath, he is not in any respiratory distress at this time. We will continue to monitor his respiratory status closely. 2. Chronic obstructive pulmonary disease. The patient does appear that he may have a slight exacerbation. He does have coarse lung sounds. We will continue with treatment as mentioned above. We have placed orders for scheduled DuoNeb treatments. Will also place the patient on some low dose steroids, 20 mg of Solu-Medrol IV q.12 hours. We will continue to follow. 3. Congestive heart failure without exacerbation. We will continue the patient's regularly prescribed medicines of Coreg, Entresto, and Lasix. We will do daily weights and strict intake and output. 4. Coronary artery disease, status post coronary artery bypass graft and cardiac stent placement. Will continue the patient's aspirin. 5. Hypertension. Will continue the patient's Norvasc as well as his other prescribed cardiac medicines as mentioned above in #3 and #4. 6. Hyperlipidemia. Will continue his atorvastatin. 7. Deep venous thrombosis prophylaxis will be provided with Lovenox 40 mg subcu daily. The patient will be placed on the medical floor with telemetry. He will have vital signs q.4 hours and strict intake and output. We will repeat a CBC, BMP, magnesium, as well as a series of cardiac enzymes. We will also repeat an EKG in the morning. He will be on a heart healthy diet. Further orders and recommendations pending hospital course, diagnostic studies and physician evaluation. Dictated by JEAN Sauer for Chaparro Wells MD cc: Chaparro Wells MD
[2018-03-25 07:49] LABS: LYMPHS 11 % (21-51); MONO 3 % (1-9); SEGS 86 % (42-75)
--- NOTE | 2018-03-25 08:05 | EKG Report ---
Test Performed on : 03/25/2018 07:33:31 AM Test Reason : CP,PNA,COPD Blood Pressure : / mmHG Vent. Rate : 061 BPM Atrial Rate : 061 BPM P-R Int : 140 ms QRS Dur : 102 ms QT Int : 434 ms P-R-T Axes : 051 017 -79 degrees QTc Int : 436 ms Sinus rhythm. with premature atrial complexes. with aberrant conduction. Possible Left atrial enlargement Left ventricular hypertrophy T wave abnormality, consider inferior ischemia Abnormal ECG When compared with ECG of 24-MAR-2018 17:01, (Unconfirmed) premature ventricular complexes. are no longer present aberrant conduction. is now present Sinus rhythm. is no longer with 2nd degree AV block (Mobitz I). Confirmed by Armando KELLEY, Juancho Warner ([id number]) on 03/27/2018 10:20:41 AM
[2018-03-25] MEDS: NORVASC PO SCH ×2 (09:11→21:11)
[2018-03-25] MEDS: LASIX PO SCH (09:11)
[2018-03-25] MEDS: ASPIRIN PO SCH (09:11)
[2018-03-25] MEDS: SOLU-MEDROL IV SCH ×2 (09:11→21:09)
--- NOTE | 2018-03-25 10:29 | EKG Report ---
Test Performed on : 03/24/2018 5:01:13 PM Test Reason : CP Blood Pressure : / mmHG Vent. Rate : 081 BPM Atrial Rate : 081 BPM P-R Int : 000 ms QRS Dur : 100 ms QT Int : 402 ms P-R-T Axes : 056 033 267 degrees QTc Int : 466 ms Sinus rhythm. with 2nd degree AV block (Mobitz I). with occasional premature ventricular complexes. Voltage criteria for left ventricular hypertrophy ST & T wave abnormality, consider inferior ischemia Prolonged QT Abnormal ECG When compared with ECG of 06-MAR-2018 06:02, premature ventricular complexes. are now present Sinus rhythm. is now with 2nd degree AV block (Mobitz I). T wave inversion no longer evident in Anterior leads Unconfirmed Result
--- NOTE | 2018-03-25 15:34 | EKG Report ---
Test Performed on : 03/25/2018 3:27:19 PM Test Reason : chest pain Blood Pressure : / mmHG Vent. Rate : 059 BPM Atrial Rate : 059 BPM P-R Int : 134 ms QRS Dur : 096 ms QT Int : 424 ms P-R-T Axes : 054 039 -87 degrees QTc Int : 419 ms Sinus bradycardia. with occasional premature ventricular complexes. Left ventricular hypertrophy with repolarization abnormality Abnormal ECG When compared with ECG of 25-MAR-2018 07:33, (Unconfirmed) premature ventricular complexes. are now present aberrant conduction. is no longer present Confirmed by Armando KELLEY, Juancho Warner ([id number]) on 03/27/2018 10:38:38 AM
--- NOTE | 2018-03-25 15:57 | CARDIOLOGY CONSULTATION ---
DATE: 03/25/2018 CHIEF COMPLAINT: Cardiology was consulted for chest pain. Patient has pneumonia, coronary artery disease, LV dysfunction. HISTORY OF PRESENT ILLNESS: Mr. Quan is a 77-year-old gentleman with history of coronary artery disease, coronary artery bypass grafting, systolic heart failure, hypertension. Was recently in the hospital. Also has COPD. Was discharged home with medication changes for LV dysfunction from a cardiac standpoint. The patient said he was discharged home. He had pneumonia, filled his antibiotic therapy. Comes back with shortness of breath and left-sided chest discomfort. There are no palpitations. There is no dizziness or syncope. He describes his chest pain as sort of sharp or pressure-like sensation. There is no history of dizziness. There are no palpitations. There is no syncope. His chest x-ray was done which revealed left lower lobe pneumonia. He has been taking his medications regularly. REVIEW OF SYSTEMS: Gastrointestinal: There is no history of nausea, vomiting, diarrhea. There is no history of hematemesis or melena. Central Nervous System: No focal weakness to suggest a CVA or TIA. Genitourinary: There is no dysuria or hematuria. PAST MEDICAL HISTORY: 1. Coronary artery disease, status post coronary artery bypass grafting in 2003 with MICHELLE to left anterior descending artery, SVG to OM 2 and SVG to RCA. He also underwent a bare metal stent to the right coronary artery in 2010. Had a patent MICHELLE to left anterior descending artery, occluded SVG to circumflex and RCA. Peripheral vascular disease, had surgery, right femoral in [place]. 2. Hypertension. 3. LV dysfunction. 4. History of heart failure. 5. Gastroesophageal reflux disease. 6. Chronic Low back pain. HOME MEDICATIONS: Include Entresto [*]one b.i.d., Protonix 40, [place] 7.5, Lasix 40, Coreg 3.125 b.i.d., Lipitor 80, aspirin 81, Norvasc 5 and inhalers. PHYSICAL EXAMINATION: Vital Signs: Blood pressure was 160/90. Cardiovascular: Jugular venous pressure was normal. First and second heart sounds were heard. There was no S3 gallop. Respiratory: A few scattered wheeze. Abdomen: Soft, nontender. There was no guarding or rigidity. Bowel sounds were heard. Central Nervous System: Moving all 4 extremities. Extremities: Examination of extremities revealed no pedal edema. HEENT: Atraumatic, normocephalic. Pupils were equal and reacting to light. IMAGING: Electrocardiogram revealed normal sinus rhythm, nonspecific ST-T changes. PVC was noted. ASSESSMENT AND PLAN: 1. Mr. Dami Quan is a 77-year-old [place] gentleman with history of hypertension, hyperlipidemia, LV dysfunction, history of heart failure, coronary artery disease, status post coronary artery bypass grafting and stent placement in the past. Was recently admitted. He comes back with shortness of breath and chest discomfort. His chest x-ray revealed left lower lobe pneumonia. He has been started on Rocephin and azithromycin. He also has COPD, would recommend continuing medications as planned. 2. As far as cardiac issues are concerned, he was recently admitted and discharged with heart failure. He is currently euvolemic. He is on Lasix, Entresto and beta blockers. I would recommend continuing the same medications. 3. Hyperlipidemia. Continue with atorvastatin. 4. Deep vein thrombosis prophylaxis initiated. Thank you for the consult. We will follow hospital course. cc: Romain Rogers MD
[2018-03-25] MEDS: ROCEPHIN 1 GM in NS 50 ML IV SCH (21:11)
--- NOTE | 2018-03-26 00:53 | PROGRESS NOTE ---
DATE: 03/25/2018 SUBJECTIVE: The patient, when I went to see him, complains of chest pain in the left side. He reports like a chest pressure versus tightness, that does not radiate, 6 or 7 intensity, that comes and goes. The pain is not reproducible by palpating the chest wall. OBJECTIVE: Vital Signs: Temperature 98.1 degrees, heart rate 70, respiratory rate 16, blood pressure 144/53, oxygen saturation 97% on room air. General: This is a 77-year-old male, lying in bed, in no acute distress. HEENT: Head is normocephalic, atraumatic. Neck: No JVD noted. No carotid bruits. No lymphadenopathy. No thyromegaly. Cardiovascular: S1, S2 heard. No murmurs, gallops, or rubs. Regular rate and rhythm. Respiratory: Clear bilaterally to auscultation. No work of breathing or using accessory muscles. Abdomen: Soft, nontender to palpation. Bowel sounds present. No organomegaly. Extremities: No clubbing, cyanosis, or edema. Peripheral pulses noted in both legs. Neurological: Patient alert and oriented x3. Moves 4 extremities. LABORATORY DATA: White cell count 7.48, with hemoglobin 11.0, hematocrit 35.1, platelets 325. Normal BMP. Troponins have been checked 3 times, and are completely negative. ASSESSMENT AND PLAN: 1. Left lower lobe pneumonia. Patient is on Rocephin and azithromycin. White cell count is okay. No shortness of breath. No fever. We will continue with the same management. 2. Chronic obstructive pulmonary disease. The patient has a slight exacerbation. We will continue with breathing treatments with DuoNeb every 4 hours scheduled, and also IV steroids as well. In this case, Solu-Medrol 20 mg IV q.12 hours. We will continue with the same management. 3. Congestive heart failure. Patient is not in any exacerbation. We will continue with his home medications, in this case, Coreg, Entresto, and Lasix. 4. Coronary artery disease, status post coronary artery bypass graft. The patient started complaining of chest pain, in this case chest tightness, in the left side of the chest, that is 6or 7 in intensity. Considering his history of coronary artery bypass grafting, we will check one more time troponins, and we will consult Cardiology. There has been a recent limited view echocardiogram done in February, so we will check the results. In the meantime, we will continue to monitor this patient closely. cc: Shivam Foley MD
[2018-03-26] MEDS: ZITHROMAX 500 MG/NS 500 MG/250 ML IVPB IV SCH (00:57)
[2018-03-26] MEDS: DUONEB (A & A) INH SCH ×6 (03:45→23:30)
[2018-03-26] MEDS ORDERED: PNEUMOVAX 23 IM ONE (05:41)
[2018-03-26] MEDS: LOVENOX SUBQ SCH (06:02)
[2018-03-26 06:48] LABS: BASO# 0.01 X1000 (0.0-0.2); BASO% 0.1 % (0.0-0.8); HEMATOCRIT 35.4 % (42.0-52.0); HEMOGLOBIN 11.2 g/dL (14.0-18.0); IMM GRAN# 0.02 X1000 (0.0-0.04); IMM GRAN% 0.2 % (0.0-0.5); LYMPH# 1.15 X1000 (1.2-3.4); LYMPH% 11.3 % (20.5-51.1); MCH 27.9 PG (27-31); MCHC 31.6 g/dL (33-37); MCV 88.3 FL (81-99); MONO# 0.38 X1000 (0.11-0.59); MONO% 3.7 % (1.7-9.3); MPV 9.4 FL (7.4-10.4); NEUT% 84.7 % (42.2-75.2); PLT 334 X1000 (130-400); RBC 4.01 XMIL (4.7-6.1); RDW 14.3 % (11.5-14.5); WBC 10.16 X1000 (4.8-10.8)
[2018-03-26 07:19] LABS: AGAP 11; BUN 20 mg/dL (8-22); CALCIUM 8.8 mg/dL (8.8-10.2); CHLORIDE 105 mmol/L (98-107); COSMO 287; ESTIMATED GFR > 60; GLUCOSE 115 mg/dL (70-104); POTASSIUM 4.1 mmol/L (3.5-5.1); SODIUM 142 mmol/L (136-145); TCO2 26 mmol/L (25-35)
--- NOTE | 2018-03-26 07:31 | EKG Report ---
Test Performed on : 03/26/2018 06:44:35 AM Test Reason : dyspnea Blood Pressure : / mmHG Vent. Rate : 065 BPM Atrial Rate : 065 BPM P-R Int : 132 ms QRS Dur : 102 ms QT Int : 428 ms P-R-T Axes : 078 063 -79 degrees QTc Int : 445 ms Normal sinus rhythm. Possible Left atrial enlargement Left ventricular hypertrophy ST & T wave abnormality, consider inferior ischemia Abnormal ECG When compared with ECG of 25-MAR-2018 15:27, (Unconfirmed) premature ventricular complexes. are no longer present Nonspecific T wave abnormality has replaced inverted T waves in Anterior leads Confirmed by Armando KELLEY, Juancho Warner ([id number]) on 03/27/2018 10:42:47 AM
[2018-03-26] MEDS ORDERED: LEXISCAN ONE (10:44)
[2018-03-26] MEDS: NORVASC PO SCH ×2 (11:32→21:51)
[2018-03-26] MEDS: COREG PO SCH ×2 (11:32→21:51)
[2018-03-26] MEDS: ENTRESTO 49 MG-51 MG TABLET PO SCH ×2 (11:32→21:51)
--- NOTE | 2018-03-26 13:18 | Diag Imaging Result Document ---
PROCEDURE NAME: MYOCARDIAL PERF SCAN, STR/REST - 03/26/2018 PROCEDURE: Lexiscan Cardiolite stress test. DESCRIPTION OF PROCEDURE IN DETAIL: Lexiscan was infused per standard protocol. There was no chest pain. Baseline electrocardiogram revealed normal sinus rhythm, nonspecific ST-T changes, left ventricular hypertrophy. Stress electrocardiogram was nondiagnostic. Occasional PVC was noted. There was no ventricular tachycardia. Next, 10.8 mCi of Cardiolite was injected for the rest phase; 31 millicuries of Cardiolite was injected for the stress phase. Gated SPECT images were obtained in standard views. Images revealed significant chest wall and diaphragmatic attenuation. There is moderate grade, fixed defect in the inferior wall and inferoapical wall diagnostic of infarct or scar. There is also a fixed defect in the inferolateral wall. There is no evidence of ischemia. Left ventricular ejection fraction by gated SPECT was 38%. There is inferior wall hypokinesis. CONCLUSIONS: 1. No chest pain. 2. Nondiagnostic stress electrocardiogram. 3. Myocardial perfusion images revealed moderate grade, moderate size, fixed defect in the inferior, inferoapical and inferolateral wall diagnostic of infarct or scar. 4. There is no evidence of ischemia. 5. Left ventricular ejection fraction by gated SPECT was 38%. cc: MD Jordyn Grijalva PA
[2018-03-26] MEDS: PROTONIX PO SCH (14:42)
[2018-03-26] MEDS: ASPIRIN PO SCH (14:43)
[2018-03-26] MEDS: SOLU-MEDROL IV SCH ×2 (14:43→21:50)
[2018-03-26] MEDS: LASIX PO SCH (14:43)
[2018-03-26] MEDS: MORPHINE IV PRN ×2 (14:44→17:56)
--- NOTE | 2018-03-26 14:56 | PROGRESS NOTE ---
DATE: 03/26/2018 SUBJECTIVE: The patient reports pain on and off in the left chest wound that is sometimes sharp, not bothering him now. OBJECTIVE: Vital Signs: Temperature 97.7 degrees, heart rate 75, respiratory rate 20, blood pressure 188/73, O2 saturation 98% on room air. General examination: This is a 77-year-old male, lying in bed, in no acute distress. HEENT: Head is normocephalic, atraumatic. Neck: No JVD noted. No carotid bruits. No lymphadenopathy. No thyromegaly. Cardiovascular: S1, S2 heard. No murmurs, gallops, or rubs. Regular rate and rhythm. Respiratory: Clear bilaterally to auscultation. No work of breathing or using accessory muscles. Abdomen: Soft. Nontender to palpation. Bowel sounds present. No organomegaly. Extremities: No clubbing, cyanosis, or edema. Peripheral pulses present in both legs. Neurological: Patient alert and oriented x3. Moves 4 extremities. LABORATORY DATA: Reviewed. ASSESSMENT AND PLAN: 1. Left lower lobe pneumonia. Currently, this patient is on Rocephin and azithromycin. and white cell count is okay, no fever reported. Only some mild pleuritic chest pain in the left side. At this point, will continue with same management. 2. Coronary artery disease, status post coronary artery bypass grafting. The patient was complaining also of chest pain and that is the reason why Cardiology, who was consulted, decided to do Cardiolite and echo according to the results of the Lexiscan, the patient requires only some medical treatment. At this point, will continue to monitor this patient closely. 3. Congestive heart failure. The patient is not on any exacerbation. Will continue with home medications for this medical condition, in this case Coreg, Entresto and Lasix. 4. Chronic obstructive pulmonary disease. Will continue with breathing treatments, in this case, DuoNeb every 4 hours and Solu-Medrol, and will see how this patient does tomorrow. 5. Disposition. If the patient is doing fine, less chest pain, I think the patient can be discharged. cc: Shivam Foley MD MTDD
[2018-03-26] MEDS: ROCEPHIN 1 GM in NS 50 ML IV SCH (21:47)
[2018-03-26] MEDS: LIPITOR PO SCH (21:50)
[2018-03-27] MEDS: ZITHROMAX 500 MG/NS 500 MG/250 ML IVPB IV SCH (00:25)
[2018-03-27] MEDS: DUONEB (A & A) INH SCH ×3 (03:30→11:29)
[2018-03-27] MEDS: LOVENOX SUBQ SCH (04:59)
[2018-03-27] MEDS: PROTONIX PO SCH ×2 (05:01→07:33)
[2018-03-27 06:05] LABS: HEMATOCRIT 37.4 % (42.0-52.0); HEMOGLOBIN 12.2 g/dL (14.0-18.0); IMM GRAN# 0.02 X1000 (0.0-0.04); IMM GRAN% 0.2 % (0.0-0.5); LYMPH# 0.72 X1000 (1.2-3.4); LYMPH% 8.6 % (20.5-51.1); MCH 28.8 PG (27-31); MCHC 32.6 g/dL (33-37); MCV 88.2 FL (81-99); MONO% 3.6 % (1.7-9.3); MPV 9.5 FL (7.4-10.4); NEUT# 7.33 X1000 (1.4-6.5); NEUT% 87.6 % (42.2-75.2); PLT 343 X1000 (130-400); RBC 4.24 XMIL (4.7-6.1); RDW 14.5 % (11.5-14.5); WBC 8.37 X1000 (4.8-10.8)
[2018-03-27 06:41] LABS: AGAP 14; BUN 23 mg/dL (8-22); CALCIUM 8.6 mg/dL (8.8-10.2); CHLORIDE 105 mmol/L (98-107); COSMO 292; CREATININE 0.9 mg/dL (0.7-1.2); ESTIMATED GFR > 60; GLUCOSE 131 mg/dL (70-104); SODIUM 144 mmol/L (136-145); TCO2 25 mmol/L (25-35)
[2018-03-27 06:58] LABS: LYMPHS 10 % (21-51); MONO 6 % (1-9); SEGS 84 % (42-75)
[2018-03-27] MEDS: LASIX PO SCH (09:18)
[2018-03-27] MEDS: ASPIRIN PO SCH (09:18)
[2018-03-27] MEDS: NORVASC PO SCH (09:18)
[2018-03-27] MEDS: SOLU-MEDROL IV SCH (09:18)
[2018-03-27] MEDS: COREG PO SCH (09:18)
[2018-03-27] MEDS: ENTRESTO 49 MG-51 MG TABLET PO SCH (09:18)
[2018-03-27 11:57] VITALS: BP 158/71
--- NOTE | 2018-03-27 16:38 | DISCHARGE SUMMARY ---
ADMISSION DATE: 03/24/2018 DISCHARGE DATE: 03/27/2018 DISCHARGE DIAGNOSIS: 1. Left lower lobe pneumonia under treatment. 2. Chronic obstructive pulmonary disease not in exacerbation. 3. Congestive heart failure not on exacerbation. 4. Coronary artery disease stable. 5. Hypertension. 6. Hyperlipidemia. 7. Deep vein thrombosis prophylaxis. CONSULTATION: Dr. Rogers from Cardiology. PROCEDURES: 1. X-ray done on admission showed left lower lobe infiltrates suggesting pneumonia and COPD. 2. Myocardial perfusion scan nuclear medicine showed no chest pain nondiagnostic. Stress electrocardiogram on the myocardial perfusion imaging revealed no evidence of ischemia, left ventricular ejection fraction was 38%. HOSPITAL COURSE: This is a 77-year-old male with past medical history of coronary artery disease who presented to emergency department complaining of shortness of breath and chest pain. He was admitted to the hospital, one of the diagnosis was left lower lobe pneumonia but patient was complaining also of chest pain as well. We continued with antibiotics but because his history of coronary artery disease with low ejection fraction we decided to consult Cardiology who finally decided to do a Lexiscan stress nuclear medicine with results as above. Also he was not complaining of any shortness of breath. He was not requiring any oxygen supplementation all the time. That is why patient today, considering that the white cell count was okay and no fever noted we are discharging home in stable condition. DISCHARGE PHYSICAL EXAMINATION: Temperature 98.5 degrees, heart rate 68, respiratory rate 20, blood pressure 158/71, O2 saturation 99% on room air. General: This is a 77- year-old male lying in bed in no acute distress. Neck: No JVD noted. No carotid bruits. No lymphadenopathy, no thyromegaly. Cardiovascular: S1-S2 heard. No murmurs , gallops, or rubs. Regular rate and rhythm. Respiratory: Clear bilaterally to auscultation. No work of breathing or using accessory muscles. Minimal rhonchi in both bases. Abdomen: Soft, nontender to palpation. Bowel sounds present. No organomegaly. Extremities: No clubbing, cyanosis or edema. Peripheral pulses present in both legs. Neurological: Patient alert, oriented x3, moves 4 extremities. DISCHARGE DISPOSITION: Home to self-care. Follow up with his primary care physician in a week. LIST OF MEDICATIONS: 1. Levofloxacin 500 mg 1 tablet p.o. daily for 7 days. 2. DuoNeb 3 mL by inhalation every 4 hours as needed for shortness of breath. 3. Amlodipine 5 mg 1 tablet p.o. b.i.d. 4. Carvedilol 3.125 mg p.o. b.i.d. 5. Furosemide 40 mg 1 tablet p.o. daily. 6. Protonix 40 mg 1 tablet p.o. daily. 7. Entresto 49/51 mg p.o. daily. 8. Aspirin 81 mg 1 tablet p.o. daily. TIME SPENT: 30 minutes. cc: Shivam Foley MD MTDD
== END 2018-03-27 15:05 | disposition home or self-care (01) | DRG 194 ==
LOC: ED 16:52 → SUATTDRO 22:14 → INTOOBSV 22:14 → EDIPHOLD 22:14 → 4N 03-25 01:46
PROVIDERS: ATTEND Internal Medicine
CPT/HCPCS: 71020; 71046; 78452; 80048; 80053; 82550; 83735; 83880; 84484; 85025; 85610; 85730; 87040; 93005; 93010; 93017; 94640; 94761; 94799; 96365; 96366; 96368; 96375; 96376; 99285; A9270; A9500; J0456; J0696; J1650; J2270; J2405; J2785; J2920

== ENCOUNTER 2018-07-12 10:54 | Inpatient (IN) ==
[2018-07-12] MEDS ORDERED: NS 500 ML IV ONE (12:25)
[2018-07-12] MEDS ORDERED: DUONEB (A & A) INH ONE (12:26)
[2018-07-12 12:45] LABS: BASO# 0.01 X1000 (0.0-0.2); BASO% 0.2 % (0.0-0.8); EOS# 0.05 X1000 (0.0-0.7); EOS% 0.9 % (0.0-10.0); HEMATOCRIT 37.1 % (42.0-52.0); HEMOGLOBIN 12.1 g/dL (14.0-18.0); LYMPH# 1.45 X1000 (1.2-3.4); LYMPH% 26.1 % (20.5-51.1); MCH 27.8 PG (27-31); MCHC 32.6 g/dL (33-37); MCV 85.3 FL (81-99); MONO# 0.58 X1000 (0.11-0.59); MONO% 10.4 % (1.7-9.3); NEUT# 3.47 X1000 (1.4-6.5); NEUT% 62.4 % (42.2-75.2); PLT 238 X1000 (130-400); RBC 4.35 XMIL (4.7-6.1); RDW 15.5 % (11.5-14.5); WBC 5.56 X1000 (4.8-10.8)
--- NOTE | 2018-07-12 12:51 | Diag Imaging Result Doc PS360 ---
CHEST-PORTABLE - 07/12/2018 INDICATION: sob/cp COMPARISON: 04/02/2018 FINDINGS: Stable cardiomegaly. There is interstitial infiltrates centrally bilaterally compatible with pulmonary edema. No pneumothorax or large pleural effusion. IMPRESSION: Cardiomegaly. Interstitial pulmonary edema. Electronically signed by Delon Antonio 07/12/2018 12:48 PM
[2018-07-12 13:11] LABS: AGAP 11; ALB/GLOB RATIO 1.6; ALBUMIN 3.3 g/dL (3.5-5.0); ALKALINE PHOSPHATASE 167 U/L (32-122); BUN 17 mg/dL (8-22); CALCIUM 8.5 mg/dL (8.8-10.2); CHLORIDE 107 mmol/L (98-107); COSMO 288; CREATININE 1.1 mg/dL (0.7-1.2); ESTIMATED GFR > 60; GLUCOSE 99 mg/dL (70-104); GOT 36 U/L (10-34); GPT 47 U/L (10-44); POTASSIUM 4.1 mmol/L (3.5-5.1); SODIUM 144 mmol/L (136-145); TCO2 26 mmol/L (25-35); TOTAL BILIRUBIN 0.73 mg/dL (0.20-1.00); TOTAL PROTEIN 5.4 g/dL (6.3-8.3)
--- NOTE | 2018-07-12 13:19 | EKG Report ---
Test Performed on : 07/12/2018 11:50:23 AM Test Reason : sob Blood Pressure : / mmHG Vent. Rate : 070 BPM Atrial Rate : 070 BPM P-R Int : 146 ms QRS Dur : 104 ms QT Int : 422 ms P-R-T Axes : 031 024 246 degrees QTc Int : 455 ms Sinus rhythm. with occasional premature ventricular complexes. Possible Left atrial enlargement Left ventricular hypertrophy with repolarization abnormality Abnormal ECG When compared with ECG of 26-MAR-2018 06:44, premature ventricular complexes. are now present T wave inversion now evident in Lateral leads Unconfirmed Result
[2018-07-12] MEDS ORDERED: LASIX IV ONE ×2 (13:31→15:49)
[2018-07-12 13:49] LABS: URINE SOURCE CLEAN CATCH
[2018-07-12 13:52] LABS: BILIRUBIN URINE NEGATIVE (NEGATIVE); BLOOD URINE NEGATIVE (NEGATIVE); COLOR YELLOW; GLUCOSE URINE NEGATIVE (NEGATIVE); KETONE URINE NEGATIVE (NEGATIVE); LEUKOCYTES URINE NEGATIVE (NEGATIVE); NITRITE URINE NEGATIVE (NEGATIVE); PH URINE 5.5; PROTEIN URINE 30 mg/dL (NEGATIVE); SP GRAVITY URINE 1.022; TURBIDITY URINE CLEAR (CLEAR); UROBILINOGEN URINE 2 mg/dL (NORMAL)
[2018-07-12 13:53] LABS: UR EPITHELIAL CELLS <10 /HPF (<10); URINE BACTERIA NEGATIVE /HPF; URINE RBC <10 /HPF (<10); URINE WBC <10 /HPF (<10)
[2018-07-12 13:59] LABS: ALLEN TEST YES; BE 0.5 mmoll (-3.0-3.0); BLOOD TYPE ARTERIAL; HCO3-(ACT) 25.1 mmoll (20.0-26.0); METHB 1.3 % (0.0-1.5); O2(CT) 14.6 mL/dL (15.0-23.0); PCO2(98.6) 41 mmHg (35-45); PO2(98.6) 62 mmHg (60-100); SAMPLE BLOOD; SAO2 94.1 % (95.0-100.0); THB 11.6 g/dL (11.5-17.4)
[2018-07-12 14:01] LABS: MODALITY CANNULA; O2HB 89.5 % (95.0-99.0)
--- NOTE | 2018-07-12 15:11 | PROVIDER DOCUMENTATION ---
This chart was entered by Yudelka Hunter Scribe, acting as scribe for Vanessa Hanson MD. HPI-Respiratory General - General Chief Complaint: Shortness of Breath Stated Complaint: SOB Time Seen by Provider: 07/12/18 12:08 Source: patient Allergies/Adverse Reactions: Patient Allergies Allergy/AdvReac Type Severity Reaction Status Date / Time No Known Allergies Allergy Verified 03/24/18 20:57 Home Medications: Home Medication List Medication Instructions Recorded Confirmed Last Taken Type Amlodipine [Norvasc] 5 mg PO BID #60 tab 02/16/18 03/24/18 03/24/18 Rx ATORVAstatin [Lipitor] 80 mg PO HS tablet 03/12/18 03/24/18 03/23/18 Rx Aspirin 81 mg PO DAILY chewtab 03/12/18 03/24/18 03/24/18 Rx Carvedilol [Coreg] 3.125 mg PO BID tablet 03/12/18 03/24/18 03/24/18 Rx Furosemide [Lasix] 40 mg PO DAILY tablet 03/12/18 03/24/18 03/24/18 Rx Pantoprazole [Protonix] 40 mg PO DAILY@0700 tablet 03/12/18 03/24/18 03/24/18 Rx Sacubitril/Valsartan [Entresto 49 1 each PO BID tablet 03/12/18 03/24/18 03/24/18 Rx mg-51 mg Tablet] Albuterol Sulfate [Proair Hfa] 2 puff INH PRN PRN 03/24/18 03/24/18 03/24/18 History Methylprednisolone [Medrol Dosepak] 4 mg PO DIRECTED 03/24/18 03/24/18 03/24/18 History Albuterol 2.5MG/Ipratrop 0.5MG 3 ml INH Q4H PRN PRN neb 03/27/18 Unknown Rx [Duoneb (A & A)] Hydrocodone/Acetaminophen [[place] 7.5 mg PO Q6H PRN PRN #20 tab 03/27/18 Unknown Rx 7.5-325 Tablet] Levofloxacin [Levaquin] 500 mg PO DAILY #7 tab 03/27/18 Unknown Rx - History of Present Illness-Resp Nature of Presenting Problem: Patient is a 77 year old male who presents to the ED with shortness of breath that started 2 days ago. States history of COPD. Denies fever. Quality of Pain: reports: tightness Severity in ED: reports: mild Onset/Duration: reports: 2 days ago Timing: reports: still present, getting worse Current Respiratory Medication Therapy: Initiated see nurses note Associated Symptoms: reports: shortness of breath Similar Symptoms Previously?: Yes Recently seen or treated by another doctor?: Yes Review of Systems - Adult - REVIEW OF SYSTEMS - ADULT Constitutional: reports: no symptoms reported. denies: chills, fever, fatique Eyes: reports: no symptoms reported Ears, Nose, Mouth & Throat: reports: no symptoms reported Cardiovascular: reports: no symptoms reported. denies: chest pain, heart murmur, irregular heart rate Respiratory: reports: see HPI, shortness of breath. denies: cough, wheezing Gastrointestinal: reports: no symptoms reported Genitourinary: reports: no symptoms reported Musculoskeletal: reports: no symptoms reported Integumentary: reports: no symptoms reported Neurological: reports: no symptoms reported Psychiatric: reports: no symptoms reported Endocrine: reports: no symptoms reported Hematologic/Lymphatic: reports: no symptoms reported Allergic/Immunologic: reports: no symptoms reported All Other Systems: Reviewed and Negative Past History - Adult - PAST MEDICAL HISTORY-ADULT Review of Records: reports: Nursing Assessment Review, Medications Reviewed, Social history reviewed & non-contributory. Major Childhood Illnesses: reports: denies history. denies: Influenza Cardiovascular: reports: CAD, CHF, HTN, hyperlipidemia, [place] Respiratory: reports: asthma, COPD, sleep apnea Gastrointestinal: reports: GERD Obstetrical/Gynecological: reports: denies history Genitourinary: reports: denies history Musculoskeletal: reports: denies history Neurological: reports: denies history Psychiatric: reports: denies history Endocrine/Immune: reports: thyroid disorder Other Conditions: reports: denies history, deaf/hard of hearing - PRIOR SURGERIES/PROCEDURES Surgical/Procedure History: reports: CABG - IMMUNIZATION STATUS Childhood Immunizations: See Nurse Assessment Flu Vaccine: See Nurse Assessment - FAMILY HISTORY Family History: reviewed, not pertinent - SOCIAL HISTORY Smoking: cigarettes, less than 1 pack/day Provider spent 3-5 mins advising pt. on dangers of tobacco.: Discussed manners to quit use, and f/u contacts for add'l counseling. Substance Use: alcohol Alcohol Use Frequency: occasionally Physical Exam-General - PHYSICAL EXAM-ADULT Initial Vital Signs Reviewed: Yes - CONSTITUTIONAL General Appearance: alert, no apparent distress. negative: lethargic, slow to respond - HEAD, EARS, NOSE, MOUTH & THROAT HENMT: normal ENT inspection, dental decay. negative: angioedema - RESPIRATORY Respiratory: chest non-tender, wheezing (bilateral), other (well healed midsternal scar.). negative: crackles - CARDIOVASCULAR Cardiovascular: normal peripheral pulses, regular rate, rhythm. negative: tachycardia, systolic murmur - GASTROINTESTINAL (ABDOMEN) Abdominal Exam: normal bowel sounds, non tender, soft. negative: guarding, rebound - MUSCULOSKELETAL Extremity: non-tender, other (1 + pitting edema to bilateral lower extremities). negative: deformity, erythema - SKIN Integumentary: normal color, normal turgor, warm/dry. negative: cyanosis, ecchymosis, erythema, jaundice - NEUROLOGIC Neurologic: grossly normal. negative: aphasia, facial droop - PSYCHIATRIC Psych/Mental Status: normal mood/affect, oriented x 3. negative: anxious Progress - PLAN OF CARE/RESULTS Progress/Plan/Lab Results: Vital Signs - 8 hr 07/12/18 11:44 07/12/18 12:33 07/12/18 13:50 Temperature 97.4 F L 97.8 F Pulse Rate 76 77 77 Respiratory Rate 28 H 20 20 Blood Pressure 186/101 181/94 O2 Sat by Pulse Oximetry 94 L 100 100 Laboratory Results - last 24 hr 07/12/18 07/12/18 07/12/18 12:38 12:38 12:38 WBC 5.56 RBC 4.35 L Hgb 12.1 L Hct 37.1 L MCV 85.3 MCH 27.8 MCHC 32.6 L RDW Std Deviation 15.5 H Plt Count 238 MPV 11.0 H Immature Gran % (Auto) 0.0 Neut % (Auto) 62.4 Lymph % (Auto) 26.1 Armstrong % (Auto) 10.4 H Eos % (Auto) 0.9 Baso % (Auto) 0.2 Immature Gran # (Auto) 0.00 Neut # (Auto) 3.47 Lymph # (Auto) 1.45 Armstrong # (Auto) 0.58 Eos # (Auto) 0.05 Baso # (Auto) 0.01 Specimen Type Sample Site pH pCO2 pO2 HCO3 Base Excess Oxyhemoglobin ABG O2 Sat (Calculated) ABG O2 Saturation ABG Carboxyhemoglobin ABG Methemoglobin Eduardo Test A-a O2 Difference Total Hemoglobin Lactate Liter Flow Blood Gas Modality FiO2 % Sodium 144 Potassium 4.1 Chloride 107 Carbon Dioxide 26 Anion Gap 11 BUN 17 Creatinine 1.1 Estimated GFR/1.73 m2 > 60 BUN/Creatinine Ratio 15 Glucose 99 Calculated Osmolality 288 Calcium 8.5 L Total Bilirubin 0.73 AST 36 H ALT 47 H Alkaline Phosphatase 167 H Una-L-Kqmpnkeyloz Pept > 42663 H Total Protein 5.4 L Albumin 3.3 L Globulin 2.1 Albumin/Globulin Ratio 1.6 Urine Source Urine Color Urine Turbidity Urine pH Ur Specific Gunter Urine Protein Ur Glucose (Stick) Ur Ketones (Stick) Urine Blood Urine Nitrite Urine Bilirubin Urobilinogen Dipstick Urine Leukocytes Urine WBC (Auto) Urine RBC (Auto) U Epithel Cells (Auto) Urine Bacteria (Auto) 07/12/18 07/12/18 13:28 13:50 WBC RBC Hgb Hct MCV MCH MCHC RDW Std Deviation Plt Count MPV Immature Gran % (Auto) Neut % (Auto) Lymph % (Auto) Armstrong % (Auto) Eos % (Auto) Baso % (Auto) Immature Gran # (Auto) Neut # (Auto) Lymph # (Auto) Armstrong # (Auto) Eos # (Auto) Baso # (Auto) Specimen Type ARTERIAL Sample Site R RADIAL pH 7.40 pCO2 41 pO2 62 HCO3 25.1 Base Excess 0.5 Oxyhemoglobin 89.5 L* ABG O2 Sat (Calculated) 14.6 L ABG O2 Saturation 94.1 L ABG Carboxyhemoglobin 3.60 H ABG Methemoglobin 1.3 Eduardo Test YES A-a O2 Difference 86.0 Total Hemoglobin 11.6 Lactate 1.20 Liter Flow 2.0 Blood Gas Modality CANNULA FiO2 % 28.0 Sodium Potassium Chloride Carbon Dioxide Anion Gap BUN Creatinine Estimated GFR/1.73 m2 BUN/Creatinine Ratio Glucose Calculated Osmolality Calcium Total Bilirubin AST ALT Alkaline Phosphatase Vem-H-Itdxxzqyski Pept Total Protein Albumin Globulin Albumin/Globulin Ratio Urine Source CLEAN CATCH Urine Color YELLOW Urine Turbidity CLEAR Urine pH 5.5 Ur Specific Gunter 1.022 Urine Protein 30 A Ur Glucose (Stick) NEGATIVE Ur Ketones (Stick) NEGATIVE Urine Blood NEGATIVE Urine Nitrite NEGATIVE Urine Bilirubin NEGATIVE Urobilinogen Dipstick 2 A Urine Leukocytes NEGATIVE Urine WBC (Auto) <10 Urine RBC (Auto) <10 U Epithel Cells (Auto) <10 Urine Bacteria (Auto) NEGATIVE Orders Category Date Time Status [place] Insertion ORDERED Care 07/12/18 15:07 Active IV Insertion ORDERED Care 07/12/18 12:24 Completed CHEST-PORTABLE [RAD] Stat Exams 07/12/18 12:23 Completed ABG [RESP] Routine Lab 07/12/18 13:50 Completed CBC WITH ELECTRONIC DIFF [HEME] Stat Lab 07/12/18 12:38 Completed CMP [COMPREHENSIVE METABOLIC PANEL] [CHEM] Stat Lab 07/12/18 12:38 Completed PRO B-NATRIURETIC PEPTIDE Stat Lab 07/12/18 12:38 Completed URINALYSIS W/POSS RFLX CULT [URINALYSIS] Stat Lab 07/12/18 13:28 Completed 0.9% Sodium Chloride Inj [Ns] 500 ml Med 07/12/18 12:25 Discontinued IV 999 mls/hr Albuterol 2.5MG/Ipratrop 0.5MG [Duoneb (A & A)] Med 07/12/18 12:26 Discontinued 3 ml INH NOW ONE Furosemide [Lasix] Med 07/12/18 13:31 Discontinued 20 mg IV NOW ONE Aerosol Treatments Routine Oth 07/12/18 12:26 Completed Aerosol Treatments Stat Oth 07/12/18 12:26 Completed EKG [EKG] Stat Ther 07/12/18 11:46 Draft Result Diagrams: 07/12/18 12:38 07/12/18 12:38 - EKG 1 Time of EKG reading by physician:: 11:50 EKG Read and Signed by:: Vanessa Hanson EKG Interpretation (*Must complete 3 of following elements*): Abnormal Rate: 70 Rhythm: sinus rhythm with occasional premature ventricular complexes QRS: LVH IL Interval: normal Comments: possible left atrial enlargement. - XRAY 1 XRAY Study: Chest Impression: See EMR Report ( CHEST-PORTABLE - 07/12/2018 INDICATION: sob/cp COMPARISON: 04/02/2018 FINDINGS: Stable cardiomegaly. There is interstitial infiltrates centrally bilaterally compatible with pulmonary edema. No pneumothorax or large pleural effusion. IMPRESSION: Cardiomegaly. Interstitial pulmonary edema. Electronically signed by Delon Antonio 07/12/2018 12:48 PM 07/12/18 1248 Interpreting Physician: Delon Antonio MD Dictated Date/Time: 07/12/18 1244 cc: Vanessa Hanson MD; Ever Farrell MD) - CONSULTS/PCP/HOSPITALIST Notification #1 *Consult/PCP/Hospitalist*: JEAN Camejo for Hospitalist Time Discussed: 15:10 Reason/Comments: Dr. Hanson consulted with Nell about patient. Consult Disposition: Will see in ED, Admit Departure - Departure Date of Disposition Decision: 07/12/18 Time of Disposition Decision: 15:10 DIAGNOSIS: CHF (congestive heart failure) Disposition: ADMITTED INPATIENT 09 Certified Medical Emergency: Emergent Condition: Stable Referrals and Follow-Ups: Ever Farrell MD [Primary Care Provider] - - Critical Care Note This patient required my direct & personal management of CC.: No Attestation - Physician/ NIYA Attestation The physician spent face to face time with patient:: Yes Advanced Practice Provider documentation review:: Supervising physician onsite and consulted in the evaluation and care of this patient. The physician did have a face to face encounter with the patient. This chart was documented by the indicated scribe, (Yudelka Hunter Scribe) and accurately reflects the services I performed and decisions made by me, Vanessa Hanson MD, as attested by the provider's signature.
[2018-07-12 16:31] LABS: UR AMPHETAMINES QUAL NONE DETECTED (NONE DETECT); UR BARBITUATES QUAL NONE DETECTED (NONE DETECT); UR BENZODIAZEPIN QUAL NONE DETECTED (NONE DETECT); UR CANNABINOIDS QUAL NONE DETECTED (NONE DETECT); UR COCAINE QUAL PRESUMPTIVE POSITIVE (NONE DETECT); UR METHADONE QUAL NONE DETECTED (NONE DETECT); UR OPIATES QUAL NONE DETECTED (NONE DETECT); UR OXYCODONE QUAL NONE DETECTED (NONE DETECT); UR PCP QUAL NONE DETECTED (NONE DETECT)
[2018-07-12] MEDS ORDERED: DUONEB (A & A) INH PRN (16:56)
--- NOTE | 2018-07-12 17:06 | HISTORY AND PHYSICAL ---
PRIMARY CARE PROVIDER: Dr. Ever Farrell. HEAVY MACHINERY OPERATOR: The patient is supposed to follow up with Dr. Amrik Ramirez. I do not believe he has had a followup appointment yet. CHIEF COMPLAINT: Bilateral lower extremity edema that started yesterday and acute onset shortness of breath that started today. HISTORY OF PRESENT ILLNESS: Mr. Quan is a [id number], 77-year-old male who carries a past medical history of coronary artery disease status post CABG, chronic systolic heart failure, hypertensive heart disease, hyperlipidemia, and chronic low back pain, who presented to the ED for an acute onset of shortness of breath and bilateral lower extremity swelling that started yesterday. Per patient and family in the room, he has been taking his medications as prescribed as well as following his diet. Chest x-ray in the ED revealed pulmonary edema. His proBNP was greater than 35,000 with some elevated liver function tests. They inserted a Tomlinson, gave him 20 Lasix. We will give him an additional 40 of IV Lasix and admit him to the medical telemetry floor and continue with his last discharge medications with Entresto and Coreg and his low-dose aspirin, and continue with IV Lasix q.12h. REVIEW OF SYSTEM: A 10-point review of systems, the patient denies any headache, fever, chills. No more cough than normal, nonproductive. No chest pain. No palpitations. No dizziness. No syncope. No urinary complaints. He was positive for shortness of breath and bilateral lower extremity edema. PAST MEDICAL HISTORY: 1. COPD. 2. Coronary artery disease status post CABG. 3. Chronic systolic heart failure. 4. Hypertensive heart disease. 5. Hyperlipidemia. 6. Chronic low back pain. PAST SURGICAL HISTORY: 1. CABG. 2. Coronary stent placement. 3. Tonsillectomy. SOCIAL HISTORY: The patient lives with family. He does have a history of cocaine as well as alcohol use, not any reportedly at this time. He is a Jehovah Witness and requests no blood products. He wants to be a DNR level 2 with no mechanical ventilation. ALLERGIES: No known drug allergies. HOME MEDICATIONS: Have not been verified, however, his last discharge medications from March 2018: 1. Norvasc 5 mg p.o. daily. 2. Coreg 3.125 mg p.o. b.i.d. 3. Lasix 40 mg p.o. daily. 4. Protonix 40 mg p.o. daily. 5. Entresto 49 mg-51 mg tablet 1 each p.o. daily. 6. Aspirin 81 mg p.o. daily. 7. Lipitor 80 mg p.o. at bedtime. 8. ProAir inhaler 2 puffs inhaled as needed for shortness of breath. PHYSICAL EXAMINATION: VITAL SIGNS: Temperature is 97.7 degrees, heart rate 81, respirations 29, blood pressure 170/83, O2 is 97% on 3 L nasal cannula. GENERAL: Mr. Quan is a hard of hearing 77-year-old male who is lying on his left side noticeably short of breath. Denies any acute distress. HEENT: Atraumatic, normocephalic. PERRL. Poor dentition. NECK: Supple. Trachea midline. CARDIOVASCULAR: S1 and S2 appreciated. No gallops or rubs. RESPIRATORY: Bilateral diffuse crackles at the bases. ABDOMEN: Soft, nontender, nondistended. Positive bowel sounds in 4 quadrants. EXTREMITIES: Bilateral lower extremity pedal edema. NEUROLOGIC: The patient is hard of hearing, however, he does answer questions appropriately. Follows commands. Moves all extremities. DIAGNOSTIC DATA: Chest x-ray showed cardiomegaly, interstitial pulmonary edema. EKG showed occasional PVCs at 70 beats per minute, LVH with new T-wave inversion in the lateral leads. LABORATORY DATA: First set of cardiac enzymes are currently pending. CBC: White count 5, hemoglobin and hematocrit of 12 and 37, platelet count 238,000. Sodium 144, potassium 4.1, BUN 17, creatinine 1.1, blood glucose 99, AST 36, ALT 47, alkaline phosphatase is 167. ProBNP was greater than 35,000. Urinalysis is negative, does have 30 protein. ASSESSMENT AND PLAN: 1. Congestive heart failure exacerbation, systolic. He has been noncompliant in the past with medications as well as cocaine abuse. We will check a urine tox screen. He was given 20 of Lasix in the ED. We will add another 40 to that. The patient does have bilateral lower extremity edema and continues to show signs of dyspnea. We will consult Cardiology. Continue his current home medications. Continue with IV Lasix b.i.d. His last echocardiogram showed an EF of 35%-40%. We will continue strict I Os, daily weights. 2. Elevated liver functions, possibly secondary to congestive heart failure. We will continue to monitor his liver function and hold his Lipitor for now. 3. Chronic obstructive pulmonary disease without exacerbation. The patient is not wheezing and had not been wheezing at home. We will do DuoNeb p.r.n. for any wheezing. 4. Coronary artery disease status post coronary artery bypass graft in 2003. 5. Hypertension. 6. Gastroesophageal reflux disease. 7. Chronic lower back pain. 8. Hyperlipidemia. Further recommendation to follow physician evaluation, laboratory and diagnostic data. Patient seen and examined by me face to face, all the laboratory, images and vitals were reviewed, family at the bedside, patient presented with shortness of breath that started today in the morning, he has a known history of CHF with low ejection fraction, as per the patient and the family he has been taking his medications as prescribed, he has decreased breath sounds bilaterally with crackles mostly at the bases, he seems to be in distress, will be admitted to the [facility], he has a history of cocaine abuse, pending toxicology, Cardiology consulted I agree with the BRAKE COUPLER DINKEY's assessment and plan, Chaka Gomez MD. Dictated by JEAN Canas for Chaka Fajardo MD cc: MD vEer Mendez MD Peter Johnson, MD MTDD
[2018-07-12] MEDS ORDERED: MORPHINE IV ONE (17:54)
[2018-07-12 19:08] LABS: CK INDEX 1.4 (0.0-2.5); CK-MB 3.08 ng/mL (0.0-5.0)
[2018-07-12] MEDS: TYLENOL PO PRN (22:33)
[2018-07-12] MEDS: COREG PO SCH (22:33)
[2018-07-12] MEDS: ENTRESTO 49 MG-51 MG TABLET PO SCH (22:33)
[2018-07-13] MEDS: LASIX IV SCH ×2 (03:04→16:20)
[2018-07-13] MEDS: TYLENOL PO PRN (05:37)
[2018-07-13 05:39] LABS: HEMATOCRIT 39.2 % (42.0-52.0); HEMOGLOBIN 12.6 g/dL (14.0-18.0); MCH 27.8 PG (27-31); MCHC 32.1 g/dL (33-37); MCV 86.5 FL (81-99); MPV 11.3 FL (7.4-10.4); RBC 4.53 XMIL (4.7-6.1); RDW 15.6 % (11.5-14.5); WBC 6.11 X1000 (4.8-10.8)
--- NOTE | 2018-07-13 06:56 | Diag Imaging Result Doc PS360 ---
EXAM: CHEST-PORTABLE HISTORY: chf TECHNIQUE: Portable chest single view COMPARISON: 07/12/2018 FINDINGS: The lungs are well expanded. There is pulmonary edema on the current exam. Heart remains enlarged. There are small pleural effusions. IMPRESSION: Interval worsening in the pulmonary edema. Electronically signed by Gael Burrell 07/13/2018 6:54 AM
--- NOTE | 2018-07-13 07:01 | EKG Report ---
Test Performed on : 07/13/2018 06:50:26 AM Test Reason : Heart Failure Admission Blood Pressure : / mmHG Vent. Rate : 077 BPM Atrial Rate : 077 BPM P-R Int : 136 ms QRS Dur : 106 ms QT Int : 440 ms P-R-T Axes : 069 061 264 degrees QTc Int : 497 ms Normal sinus rhythm. Left atrial enlargement Left ventricular hypertrophy with repolarization abnormality Prolonged QT Abnormal ECG When compared with ECG of 12-JUL-2018 11:50, (Unconfirmed) premature ventricular complexes. are no longer present Confirmed by Keyshawn KELLEY, Luciano Reeves ([id number]) on 07/14/2018 8:20:36 AM
[2018-07-13] MEDS: ENTRESTO 49 MG-51 MG TABLET PO SCH ×2 (08:02→20:11)
[2018-07-13] MEDS: COREG PO SCH (08:02)
[2018-07-13] MEDS: ASPIRIN PO SCH (08:02)
[2018-07-13] MEDS ORDERED: NORCO-7.5 PO PRN (11:58)
[2018-07-13] MEDS ORDERED: DUONEB (A & A) INH PRN (11:58)
[2018-07-13] MEDS: APRESOLINE PO SCH ×2 (12:07→16:20)
[2018-07-13] MEDS: ISORDIL PO SCH ×2 (12:07→16:20)
[2018-07-13] MEDS: NORVASC PO SCH ×2 (12:08→20:11)
--- NOTE | 2018-07-13 13:35 | CARDIOLOGY CONSULTATION ---
DATE: 07/13/2018 CONSULTATION REQUESTED BY: Hospitalist service. REASON FOR CONSULTATION: Shortness of breath, edema. HISTORY: Mr. Quan is an unfortunate, 77-year-old, black gentleman who is under the care of Dr. Ever Farrell in [place]. Presented to the emergency room yesterday with complaints of increasing dyspnea that has been going on for a few days prior to admission. In the ER, he stated that the dyspnea had gotten to the point that he was up all night. They did a chest x-ray that shows interstitial pulmonary edema. EKG showed sinus rhythm with diffuse repolarization abnormality and PVCs. Subsequent EKG done today shows sinus rhythm with LVH and diffuse repolarization abnormality. They tested his proBNP. It was today greater than 35,000 and it has been like that on 2 consecutive days. His troponin levels have been checked several times. They are 0.044, 0.042, 0.049. He denies having a specific angina pectoris. He just feels worn out, tired. His legs are not as swollen today as they were at the moment of admission yesterday, July 12. PAST HISTORY: Positive for coronary heart disease. He was known to have heart disease since 2000. Subsequently, in 2003, he developed severe coronary artery disease and at that time, they referred him for a bypass. He had a myocardial infarction in 2010. At that time, a heart catheterization done in [place] showed that he had a occluded 2 out of 3 grafts. The vein graft to the right and vein graft to the marginal system were occluded. He had a patent mammary artery graft to the LAD. At that time, they put a stent to the right coronary artery. He has hypertension. He has COPD. SURGICAL HISTORY: Previous triple bypass in 2003 in [place]. SOCIAL HISTORY: He has had no significant social history. He lives with his son. He is . He is a smoker. The patient has been evaluated in this hospital a total of six times since 2012 and five out of six times, he has tested his urine positive for cocaine including last three visits, 07/17/2017, 02/13/2018, and this present visit, 07/12/2018, testing positive for cocaine, indicating that he is habitual user of this substance. He, of course, denies using anything but his home medications. FAMILY HISTORY: Noncontributory. ALLERGIES: Negative. HOME MEDICATIONS: At this time include the following: Albuterol inhaler, amlodipine 5 twice a day, aspirin 81 daily, Lipitor 80 at bedtime, carvedilol 3.125 twice a day, furosemide 40 mg daily, hydrocodone, Protonix, and Entresto 49/51 twice a day. REVIEW OF SYSTEMS: Hard to obtain. Basically, he is very sedentary and does not do much at home. He lives with his son and with his [id number]. No significant positives other than what I have already reported. PHYSICAL EXAMINATION: Vital Signs: Blood pressure is 202/78, pulse is 86, temperature 97.8 degrees, respirations 18. General: Patient is awake, alert. Appears to be somewhat emaciated. His body mass index is 17.5. HEENT: Unremarkable. Chest: Diminished breath sounds. Heart sounds are distant, regular. No gallop or murmur. His abdomen is scaphoid, nontender. Extremities showed decreased pulses. No peripheral edema. Neurological Examination: Nonfocal. Moves 4 extremities. BLOOD WORK: His magnesium is 1.7. Sodium is 144, potassium 4.1, BUN 17, creatinine 1.1. Hemoglobin 12.6, hematocrit 39.2. IMPRESSION: 1. Patient presenting with what appears to be decompensation of systolic heart failure with pulmonary edema. 2. Severe multivessel coronary heart disease, status post bypass in 2003, with progression of disease, occlusion of two vein grafts in 2010 requiring a stent to the right coronary artery. 3. Poorly controlled hypertension. 4. Chronic obstructive pulmonary disease. 5. Malnutrition. 6. Cocaine abuse. This appears to be a chronic feature for him. 7. I suspect profound medical noncompliance. RECOMMENDATIONS: I would suggest to put him on calcium blockers and avoid beta blockers because of the cocaine positive in his urine. The coronary spasm could get worsened by the use of beta blockers. I would suggest using calcium blockers to avoid that. I will put him on isosorbide dinitrate and hydralazine to control his blood pressure and we will see how he does. I would strongly recommend making a referral to psychiatry to evaluate this patient's underlying mental status, which evidently is not normal. He has been using cocaine for at least 6 years, according to our hospital records. That somehow needs to be stopped. Upon discharge, this patient has to follow up with his original bill adjuster who in this case is Dr. Pino or here in town would be Dr. Amrik Ramirez with whom he was supposed to have a visit. cc: Juliano Saldivar MD
[2018-07-13] MEDS: SOLU-MEDROL IV SCH (16:20)
--- NOTE | 2018-07-13 16:22 | PROGRESS NOTE ---
DATE: 07/13/2018 SUBJECTIVE: Patient has no major complaints, except he still seems fairly short of breath to me. OBJECTIVE: Blood pressure 171/97, heart rate 81, respiratory rate 24, temperature 97.5 degrees, 100% on 3 L.Cardiovascular: Regular rate and rhythm. Pulmonary: He has rales at the bases, diffuse wheezing, and some rhonchi. Gastrointestinal: Soft, nontender, nondistended. Bowel sounds are positive. Extremities: No clubbing or cyanosis. Lymphatic: No peripheral edema. Neurological: Nonfocal. We will continue to monitor. LABORATORY DATA: Showed a white count of 6, hemoglobin 12, hematocrit 39, platelets 248,000. ProBNP of 35,000. PROBLEM LIST: 1. Congestive heart failure exacerbation, acute, systolic. We will continue diuresis and follow up. He is noncompliant, and he uses cocaine which is life-threatening at his age. We will continue his treatments as delineated. Cardiology is also following. Appreciate their input. 2. Elevated liver enzymes. We will continue to track. Probably passive venous congestion associated with CHF. 3. Chronic obstructive pulmonary disease exacerbation. I feel that today he seems to be wheezing which could just simply be cardiac asthma, but I will add some steroids. I will add breathing treatments. 4. Cocaine abuse, which is persistent. According to Dr. Saldivar's research of the chart, it looks like he has been doing it for the last 6 years, which is amazing that a 77-year-old man with CAD is still able to use cocaine, but we discussed at length the life-threatening both immediately and long-term of cocaine at his age with his comorbidities. He acknowledged treatment. Dr. Saldivar recommended psychiatric evaluation, but from the local standpoint, Psychiatry here is not a consult liaison service, so that is not available at this point: 1) They will only see him at time of discharge; 2) They do not evaluate inpatients unless there are suicidal or homicidal or actively psychotic; 3) They do not do competency examinations; 4) They do not do evaluations for patients with substance abuse. They have never done that, even on an outpatient basis. Psychiatry is not an option unless the patient claims to be suicidal which is not the case. cc: Colten Murillo MD
[2018-07-13] MEDS: DUONEB (A & A) INH SCH ×2 (19:57→23:18)
[2018-07-13] MEDS: LIPITOR PO SCH (20:11)
[2018-07-13] MEDS ORDERED: ENTRESTO 49 MG-51 MG TABLET PO SCH (21:00)
[2018-07-13] MEDS ORDERED: NORVASC PO SCH (21:00)
[2018-07-14] MEDS: LASIX IV SCH ×2 (04:21→15:42)
[2018-07-14] MEDS: SOLU-MEDROL IV SCH ×2 (04:21→15:42)
[2018-07-14 05:22] LABS: HEMATOCRIT 36.5 % (42.0-52.0); HEMOGLOBIN 11.7 g/dL (14.0-18.0); LYMPH# 0.99 X1000 (1.2-3.4); LYMPH% 19.4 % (20.5-51.1); MCH 27.4 PG (27-31); MCHC 32.1 g/dL (33-37); MCV 85.5 FL (81-99); MONO# 0.35 X1000 (0.11-0.59); MONO% 6.8 % (1.7-9.3); MPV 10.6 FL (7.4-10.4); NEUT# 3.77 X1000 (1.4-6.5); NEUT% 73.8 % (42.2-75.2); PLT 249 X1000 (130-400); RBC 4.27 XMIL (4.7-6.1); RDW 15.6 % (11.5-14.5); WBC 5.11 X1000 (4.8-10.8)
[2018-07-14 05:54] LABS: CHOLESTEROL 134 mg/dL (0-200); HDL 45 mg/dL (35-55); LDL 75 mg/dL; TRIGLYCERIDES 70 mg/dL (39-160); VLDL 14 mg/dL
[2018-07-14 05:57] LABS: AGAP 9; BUN 16 mg/dL (8-22); CHLORIDE 103 mmol/L (98-107); COSMO 284; CREATININE 1.1 mg/dL (0.7-1.2); ESTIMATED GFR > 60; GLUCOSE 128 mg/dL (70-104); MAGNESIUM 1.7 mg/dL (1.5-2.7); SODIUM 141 mmol/L (136-145); TCO2 29 mmol/L (25-35)
[2018-07-14] MEDS: PROTONIX PO SCH (06:15)
[2018-07-14] MEDS ORDERED: POTASSIUM CHLORIDE 20% LIQUID PO ONE (07:43)
--- NOTE | 2018-07-14 08:02 | CARDIOLOGY PROGRESS NOTE ---
DATE: 07/14/2018 CHIEF COMPLAINT: Shortness of breath, swelling. SUBJECTIVE: Mr. Quan is feeling more comfortable today. He is not having any pain. He rested well last night. OBJECTIVE: VITAL SIGNS: Blood pressure 149/61, temperature 98.8 degrees, pulse 65, respirations 20. GENERAL: He is awake, alert and in no distress. HEENT: Unremarkable. CHEST: Reveals clear breath sounds bilaterally. HEART: Sounds are regular rhythm. I do not hear a gallop or murmur. Telemetry review indicates one 3 beat run of ventricular tachycardia. ABDOMEN: Nontender. EXTREMITIES: Showed trivial minimal edema. NEUROLOGICAL: Follows commands. Moves 4 extremities. BLOOD WORK: Sodium 141, potassium 3.0, BUN 16 mg/dL, creatinine 1.1 mg/dL. His cholesterol is 134 mg/dL, LDL is 75 mg/dL, HDL is 45 mg/dL,triglycerides:70 mg/dL. IMPRESSION: 1. Patient who presented with decompensated systolic and diastolic heart failure, chronic secondary to severe coronary heart disease. 2. Poorly controlled hypertension. 3. COPD. 4. Malnutrition. 5. Evidence of cocaine use. RECOMMENDATIONS: At this time, the patient will continue isosorbide dinitrate, hydralazine and amlodipine to control his blood pressure. We will avoid beta blockers because of the use of cocaine. Patient needs to be followed closely by primary service and also we need to sit down with family and figure out what is the home situation with him. We will follow. cc: Juliano Saldivar MD MTDD
[2018-07-14] MEDS: DUONEB (A & A) INH SCH ×5 (08:55→22:51)
[2018-07-14] MEDS ORDERED: LASIX PO SCH (09:00)
[2018-07-14] MEDS ORDERED: ASPIRIN PO SCH (09:00)
[2018-07-14] MEDS: ISORDIL PO SCH ×3 (09:10→20:35)
[2018-07-14] MEDS: ASPIRIN PO SCH (09:10)
[2018-07-14] MEDS: ENTRESTO 49 MG-51 MG TABLET PO SCH ×2 (09:11→20:34)
[2018-07-14] MEDS: NORVASC PO SCH ×2 (09:11→20:34)
[2018-07-14] MEDS: APRESOLINE PO SCH ×3 (09:11→20:34)
--- NOTE | 2018-07-14 14:49 | PROGRESS NOTE ---
DATE: 07/14/2018 SUBJECTIVE: Patient has no major complaints. OBJECTIVE: Blood pressure is 124/45, heart rate 72, respiratory rate 17, and temperature 98.4 degrees, 95% on 3 L.Cardiovascular: Regular rate and rhythm. Pulmonary: Bilateral breath sounds clear to auscultation. He does have rales at the bases. Some bronchial breath sounds at the right base as well. GI: Soft, nontender, and nondistended. Bowel sounds are positive. LABORATORY DATA: White count 5, hemoglobin and hematocrit 11 and 36, platelets 249,000. Potassium is 3. LDL of 75. PROBLEM LIST: 1. Acute congestive heart failure exacerbation. We will continue diuresis. Cardiology is following. Appreciate their input. 2. Elevated liver enzymes, did not track those today, but we will follow. 3. Cocaine abuse. I have discussed at length about that. We started pain medication on him yesterday, but he says he is still not getting the appropriate pain medicine now. DISPOSITION: I think he is improving slowly. We will set up some home health visits per Dr. Saldivar. We had discussed about, and we will get social work involved as far as discharge planning. cc: Colten Murillo MD
[2018-07-14] MEDS: LIPITOR PO SCH (20:34)
[2018-07-14] MEDS: NORCO-10 PO PRN (20:46)
[2018-07-14 21:33] LABS: AGAP 15; BUN 21 mg/dL (8-22); CALCIUM 8.3 mg/dL (8.8-10.2); CHLORIDE 101 mmol/L (98-107); COSMO 295; CREATININE 1.3 mg/dL (0.7-1.2); ESTIMATED GFR > 60; GLUCOSE 257 mg/dL (70-104); MAGNESIUM 1.6 mg/dL (1.5-2.7); POTASSIUM 3.7 mmol/L (3.5-5.1); SODIUM 142 mmol/L (136-145); TCO2 26 mmol/L (25-35)
[2018-07-14] MEDS ORDERED: KLOR-CON PO ONE (23:19)
[2018-07-14] MEDS ORDERED: MAGNESIUM SULFATE 1 GM/D5W 1 GM/100 ML IVPB IV ONE (23:19)
[2018-07-15] MEDS: LASIX IV SCH (04:00)
[2018-07-15] MEDS: SOLU-MEDROL IV SCH ×2 (04:28→15:47)
[2018-07-15 05:30] LABS: HEMATOCRIT 37.1 % (42.0-52.0); HEMOGLOBIN 12.1 g/dL (14.0-18.0); LYMPH# 1.03 X1000 (1.2-3.4); LYMPH% 9.2 % (20.5-51.1); MCH 27.8 PG (27-31); MCHC 32.6 g/dL (33-37); MCV 85.1 FL (81-99); MONO# 0.73 X1000 (0.11-0.59); MONO% 6.5 % (1.7-9.3); MPV 11.2 FL (7.4-10.4); NEUT# 9.49 X1000 (1.4-6.5); NEUT% 84.3 % (42.2-75.2); PLT 270 X1000 (130-400); RBC 4.36 XMIL (4.7-6.1); RDW 15.4 % (11.5-14.5); WBC 11.25 X1000 (4.8-10.8)
[2018-07-15] MEDS: PROTONIX PO SCH ×2 (05:36→06:20)
[2018-07-15] MEDS: LOVENOX SUBQ SCH (05:37)
[2018-07-15 05:50] LABS: AGAP 12; ALB/GLOB RATIO 1.5; ALBUMIN 3.1 g/dL (3.5-5.0); ALKALINE PHOSPHATASE 130 U/L (32-122); BUN 21 mg/dL (8-22); CALCIUM 8.3 mg/dL (8.8-10.2); CHLORIDE 100 mmol/L (98-107); COSMO 286; CREATININE 1.3 mg/dL (0.7-1.2); ESTIMATED GFR > 60; GLUCOSE 128 mg/dL (70-104); GOT 26 U/L (10-34); GPT 39 U/L (10-44); POTASSIUM 3.7 mmol/L (3.5-5.1); SODIUM 141 mmol/L (136-145); TCO2 29 mmol/L (25-35); TOTAL BILIRUBIN 0.22 mg/dL (0.20-1.00); TOTAL PROTEIN 5.2 g/dL (6.3-8.3)
--- NOTE | 2018-07-15 07:43 | Diag Imaging Result Doc PS360 ---
EXAM: CHEST-PORTABLE HISTORY: dyspnea TECHNIQUE: Portable chest single view COMPARISON: 07/13/2018 FINDINGS: The lungs are well expanded. The infiltrates are less pronounced. Near-complete clearing on the current exam. There are sternal wires and surgical clips and mild cardiomegaly. No pleural effusions identified. IMPRESSION: Overall interval improvement. Electronically signed by Gael Burrell 07/15/2018 7:40 AM
[2018-07-15] MEDS: DUONEB (A & A) INH SCH ×5 (07:55→23:49)
--- NOTE | 2018-07-15 08:09 | EKG Report ---
Test Performed on : 07/14/2018 10:33:43 PM Test Reason : Trigeminy per telemetry Blood Pressure : / mmHG Vent. Rate : 081 BPM Atrial Rate : 081 BPM P-R Int : 134 ms QRS Dur : 102 ms QT Int : 410 ms P-R-T Axes : 054 057 258 degrees QTc Int : 476 ms Sinus rhythm. with frequent premature ventricular complexes. Possible Left atrial enlargement Left ventricular hypertrophy with repolarization abnormality Abnormal ECG When compared with ECG of 13-JUL-2018 06:50, premature ventricular complexes. are now present Confirmed by Keyshawn KELLEY, Luciano Reeves ([id number]) on 07/16/2018 9:04:02 AM
--- NOTE | 2018-07-15 08:12 | CARDIOLOGY PROGRESS NOTE ---
DATE: 07/15/2018 CHIEF COMPLAINT: Shortness of breath, swelling. SUBJECTIVE: Mr. Quan is feeling better. He is not having any chest pain. The swelling is going down. Breathing is getting better. Chest x-ray was done this morning, that report is pending; however, besides cardiomegaly and the postsurgical changes shows some cephalization of the pulmonary venous flow with clear costophrenic angles. The patient's rhythm is sinus on telemetry. He really feels better. OBJECTIVE: VITAL SIGNS: Blood pressure 155/46, temperature 98.3 degrees, pulse 70, respirations 20. GENERAL: He is awake, alert, oriented. No distress. HEENT: Unremarkable. CHEST: Diminished breath sounds diffusely without obvious rales. HEART: Sounds regular and rhythmic. Soft systolic murmur. ABDOMEN: Nontender, soft. No masses. No organomegaly. EXTREMITIES: Show no edema. NEUROLOGICAL: Follows commands. Moves all 4 extremities. BLOOD WORK: Hemoglobin 12.1, white cell count 11,250, platelet count is 270,000. Sodium 141, potassium 3.7, BUN 21, creatinine 1.3. Albumin is 3.1. IMPRESSION: 1. Patient who presented with decompensated congestive heart failure both systolic and diastolic. 2. History of severe coronary heart disease, previous bypass and previous stent. 3. Poorly controlled hypertension. 4. COPD. 5. Evidence of illicit substance abuse. 6. Malnutrition. RECOMMENDATIONS: At this point, I will continue present medications as was indicated including isosorbide dinitrate and hydralazine to be given 3 times a day together. This patient cannot be given beta blockers because of the cocaine in his system. He needs to be evaluated by Ditching Machine Engineer and possibly get a psychiatric opinion in his case. He needs to follow up with his primary physician and with his regular traditional chinese herbalist who has been according to records Dr. Pino in [place]. Thank you for asking us to participate in his evaluation. At this point, we are going to standby. Call us if further assistance is needed. cc: Juliano Saldivar MD
[2018-07-15] MEDS: ENTRESTO 49 MG-51 MG TABLET PO SCH ×2 (09:18→20:24)
[2018-07-15] MEDS: ISORDIL PO SCH ×3 (09:19→20:24)
[2018-07-15] MEDS: ASPIRIN PO SCH (09:19)
[2018-07-15] MEDS: NORVASC PO SCH ×2 (09:19→20:25)
[2018-07-15] MEDS: APRESOLINE PO SCH ×3 (09:19→20:24)
[2018-07-15] MEDS: NORCO-10 PO PRN ×2 (12:24→20:25)
--- NOTE | 2018-07-15 13:43 | PROGRESS NOTE ---
DATE: 07/15/2018 SUBJECTIVE: Patient has no focal complaints. He seems to be doing okay. He has some intermittent chest pain, but other than that he is doing okay. OBJECTIVE: Blood pressure is 130/51, heart rate 92, respiratory rate 20, temperature 98.1 degrees and 97% on 2 L.Cardiovascular: Regular rate and rhythm. Pulmonary: Bilateral breath sounds clear to auscultation. GI: Soft, nontender, and nondistended. Bowel sounds are positive. LABORATORY DATA: White count is 11, hemoglobin and hematocrit 12 and 37, and platelets 272,000. Basic was normal. PROBLEM LIST: 1. Acute congestive heart failure exacerbation systolic. We will continue diuresis. Cardiology is following. 2. Elevated liver enzymes. They have come down, so there may have just been some passive venous congestion. He does have a little bit of renal insufficiency now with diuretics. We will continue. 3. Cocaine abuse. We have counseled at length. I wonder if Coreg would be acceptable since it is an alpha jennifer and a beta-jennifer because he is having some trigeminy and bigeminy now, which his potassium is a little low but not profoundly so. We will check, her magnesium is actually pretty normal too. DISPOSITION: Pending clinical status. We will continue to follow. cc: Colten Murillo MD
[2018-07-15] MEDS: COREG PO SCH (20:24)
[2018-07-15] MEDS: LASIX PO SCH (20:24)
[2018-07-15] MEDS: LIPITOR PO SCH (20:24)
[2018-07-16] MEDS: NORCO-10 PO PRN ×3 (05:19→20:13)
[2018-07-16] MEDS: PROTONIX PO SCH ×2 (05:19→06:08)
[2018-07-16] MEDS: SOLU-MEDROL IV SCH (05:19)
[2018-07-16] MEDS: LOVENOX SUBQ SCH (05:19)
[2018-07-16 06:05] LABS: HEMATOCRIT 38.2 % (42.0-52.0); HEMOGLOBIN 12.3 g/dL (14.0-18.0); IMM GRAN# 0.04 X1000 (0.0-0.04); IMM GRAN% 0.3 % (0.0-0.5); LYMPH# 0.85 X1000 (1.2-3.4); LYMPH% 6.9 % (20.5-51.1); MCH 27.8 PG (27-31); MCHC 32.2 g/dL (33-37); MCV 86.4 FL (81-99); MONO# 0.66 X1000 (0.11-0.59); MONO% 5.4 % (1.7-9.3); NEUT# 10.76 X1000 (1.4-6.5); NEUT% 87.4 % (42.2-75.2); PLT 280 X1000 (130-400); RBC 4.42 XMIL (4.7-6.1); RDW 15.5 % (11.5-14.5); WBC 12.31 X1000 (4.8-10.8)
[2018-07-16 06:35] LABS: AGAP 12; BUN 29 mg/dL (8-22); CALCIUM 8.3 mg/dL (8.8-10.2); CHLORIDE 101 mmol/L (98-107); COSMO 287; CREATININE 1.3 mg/dL (0.7-1.2); ESTIMATED GFR > 60; GLUCOSE 139 mg/dL (70-104); MAGNESIUM 1.8 mg/dL (1.5-2.7); POTASSIUM 3.7 mmol/L (3.5-5.1); SODIUM 140 mmol/L (136-145); TCO2 27 mmol/L (25-35)
[2018-07-16 07:01] LABS: LYMPHS 12 % (21-51); MONO 8 % (1-9); SEGS 80 % (42-75)
[2018-07-16] MEDS: DUONEB (A & A) INH SCH ×5 (08:14→23:49)
[2018-07-16] MEDS: ASPIRIN PO SCH (09:41)
[2018-07-16] MEDS: NORVASC PO SCH ×2 (09:41→20:13)
[2018-07-16] MEDS: ISORDIL PO SCH ×3 (09:41→20:14)
[2018-07-16] MEDS: LASIX PO SCH ×2 (09:41→20:14)
[2018-07-16] MEDS: APRESOLINE PO SCH ×3 (09:41→20:13)
[2018-07-16] MEDS: ENTRESTO 49 MG-51 MG TABLET PO SCH ×2 (09:41→20:14)
[2018-07-16] MEDS: COREG PO SCH ×2 (09:41→20:13)
--- NOTE | 2018-07-16 12:21 | PROGRESS NOTE ---
DATE: 07/16/2018 SUBJECTIVE: The patient has no major complaints. He looks like he is breathing better today. OBJECTIVE: Vital Signs: O2 sat is 99 on 3 L. Heart rate 82, respiratory rate 18, temperature 96.4 degrees. Cardiovascular: Regular rate and rhythm. Pulmonary: Bilateral breath sounds. LABORATORY DATA: White count is 12, hemoglobin and hematocrit 12 and 38, platelets 280,000. Creatinine is 1.3 which is stable. BUN is up a little bit 29. PROBLEM LIST: 1. Acute congestive heart failure systolic heart failure exacerbation on diuretics. Cardiology is following. I think I have switched him to p.o. Lasix just because his creatinine started to rise. He seems to be doing okay from that standpoint. 2. Chronic obstructive pulmonary disease exacerbation. He is on some breathing treatment, steroids. 3. Elevated liver enzymes likely related to passive venous congestion. That is improved. 4. Cocaine abuse. Discussed at length about treatment. We will set him up with possible home health, but I think he is stable to go the floor, possibly to home in the next 1 to 2 days. cc: Colten Murillo MD MTDD
[2018-07-16] MEDS: LIPITOR PO SCH (20:14)
[2018-07-17] MEDS ORDERED: SOLU-MEDROL IV SCH (05:00)
[2018-07-17 05:42] LABS: EOS# 0.01 X1000 (0.0-0.7); EOS% 0.1 % (0.0-10.0); HEMATOCRIT 37.3 % (42.0-52.0); LYMPH# 1.96 X1000 (1.2-3.4); LYMPH% 21.7 % (20.5-51.1); MCH 28.1 PG (27-31); MCHC 32.2 g/dL (33-37); MCV 87.4 FL (81-99); MONO# 0.85 X1000 (0.11-0.59); MONO% 9.4 % (1.7-9.3); MPV 11.2 FL (7.4-10.4); NEUT# 6.22 X1000 (1.4-6.5); NEUT% 68.8 % (42.2-75.2); PLT 267 X1000 (130-400); RBC 4.27 XMIL (4.7-6.1); RDW 15.5 % (11.5-14.5); WBC 9.04 X1000 (4.8-10.8)
[2018-07-17] MEDS: LOVENOX SUBQ SCH (06:11)
[2018-07-17] MEDS: PROTONIX PO SCH (06:11)
[2018-07-17 06:25] LABS: CALCIUM 8.3 mg/dL (8.8-10.2); CREATININE 1.5 mg/dL (0.7-1.2); MAGNESIUM 1.9 mg/dL (1.5-2.7); POTASSIUM 4.3 mmol/L (3.5-5.1)
[2018-07-17] MEDS: DUONEB (A & A) INH SCH ×5 (08:25→23:30)
[2018-07-17] MEDS: COREG PO SCH ×2 (09:05→20:38)
[2018-07-17] MEDS: ASPIRIN PO SCH (09:05)
[2018-07-17] MEDS: ISORDIL PO SCH ×3 (09:05→20:37)
[2018-07-17] MEDS: LASIX PO SCH (09:05)
[2018-07-17] MEDS: APRESOLINE PO SCH ×3 (09:05→20:41)
[2018-07-17] MEDS: NORVASC PO SCH ×2 (09:05→20:38)
[2018-07-17] MEDS: ENTRESTO 49 MG-51 MG TABLET PO SCH ×2 (09:05→20:45)
[2018-07-17] MEDS: NORCO-10 PO PRN ×3 (09:11→20:25)
--- NOTE | 2018-07-17 14:13 | PROGRESS NOTE ---
DATE: 07/17/2018 SUBJECTIVE: Patient reports feeling improved, relates some shortness of breath with activity. There has been no orthopnea. He has had some lightheadedness with standing. There has been no chest pain. OBJECTIVE: Vital Signs: Blood pressure 136/73, heart rate 79. HEENT/Neck Exam: Neck is supple. Jugular venous distention cannot be appreciated. Chest: Clear to auscultation with somewhat diminished breath sounds diffusely. Cardiac Exam: Reveals a regular rate and rhythm without appreciable murmur or gallop. Extremities: Demonstrate trace ankle edema. LABORATORY DATA: Includes a white blood cell count 9.04, hematocrit 37.3, hemoglobin 12.0, platelet count 267. Sodium 145, potassium 4.3, chloride 105, bicarbonate 29, BUN 37, creatinine 1.5. IMPRESSION: 1. Acute on chronic systolic heart failure. Patient has improved with diuresis, but may be showing some signs of prerenal azotemia. 2. Severe atherosclerotic coronary disease and ischemic cardiomyopathy. Patient is status post previous coronary bypass surgery and was later found to have 2 out of 3 bypass grafts occluded with patent left internal mammary artery graft to left anterior descending coronary. He is status post stent to the right coronary artery. Left ventricular ejection fraction 30% to 35% on last echocardiography study. He continues without angina. 3. Hypertension. 4. Chronic obstructive pulmonary disease. 5. Inconsistent compliance. 6. Polysubstance abuse. RECOMMENDATIONS: 1. Reduce Lasix to 40 mg p.o. daily. 2. Physical therapy consult. cc: Gustavo Monzon MD
--- NOTE | 2018-07-17 14:27 | PROGRESS NOTE ---
DATE: 07/17/2018 SUBJECTIVE: Patient has no major complaints. OBJECTIVE: Blood pressure is 136/73, heart rate 78, respiratory 19, temperature 97.3 degrees. He has had urine output out 2100, 450 and 1620. PROBLEM LIST: 1. Acute systolic heart failure exacerbation. We will continue treatment. He is on p.o. Lasix because his creatinine started to rise and it still risen a little bit more. Dr. Monzon is following. He is on Entresto and Coreg and other medications. We will continue to monitor. 2. Chronic obstructive pulmonary disease. That seems to be resolving. He is on breathing treatments. I am going to decrease his steroids further. 3. Liver passive venous congestion. Will continue to monitor. 4. Cocaine abuse. Advised on cessation. We will set him up with some home health which I do not know. I have ordered some home health for him just perhaps increase his compliance. DISPOSITION: Anticipate discharge maybe next 1 to 2 days. Will see how his functional status is. cc: Colten Murillo MD
[2018-07-17] MEDS ORDERED: HALDOL IV ONE (19:47)
[2018-07-17] MEDS: LIPITOR PO SCH (20:37)
[2018-07-17] MEDS: HALDOL IM PRN (22:23)
[2018-07-18] MEDS: NORCO-10 PO PRN ×2 (03:08→18:16)
[2018-07-18] MEDS: HALDOL IM PRN ×3 (04:22→11:54)
[2018-07-18 06:30] LABS: EOS# 0.01 X1000 (0.0-0.7); EOS% 0.1 % (0.0-10.0); HEMATOCRIT 38.2 % (42.0-52.0); HEMOGLOBIN 12.3 g/dL (14.0-18.0); LYMPH# 1.75 X1000 (1.2-3.4); MCH 27.7 PG (27-31); MCHC 32.2 g/dL (33-37); MONO# 0.82 X1000 (0.11-0.59); MONO% 11.2 % (1.7-9.3); MPV 11.1 FL (7.4-10.4); NEUT# 4.72 X1000 (1.4-6.5); NEUT% 64.7 % (42.2-75.2); PLT 274 X1000 (130-400); RBC 4.44 XMIL (4.7-6.1); RDW 15.2 % (11.5-14.5)
[2018-07-18] MEDS: PROTONIX PO SCH (06:42)
[2018-07-18] MEDS: LOVENOX SUBQ SCH (06:44)
[2018-07-18 06:48] LABS: AGAP 9; BUN 33 mg/dL (8-22); CALCIUM 8.3 mg/dL (8.8-10.2); CHLORIDE 104 mmol/L (98-107); COSMO 288; CREATININE 1.2 mg/dL (0.7-1.2); ESTIMATED GFR > 60; GLUCOSE 91 mg/dL (70-104); POTASSIUM 4.2 mmol/L (3.5-5.1); SODIUM 141 mmol/L (136-145); TCO2 28 mmol/L (25-35)
[2018-07-18] MEDS ORDERED: STERILE WATER INJ. INJ PRN (08:30)
[2018-07-18] MEDS: DUONEB (A & A) INH SCH ×4 (08:35→19:40)
[2018-07-18] MEDS: SOLU-MEDROL IV SCH (08:53)
[2018-07-18] MEDS: ENTRESTO 49 MG-51 MG TABLET PO SCH ×2 (08:54→23:25)
[2018-07-18] MEDS: NORVASC PO SCH ×2 (08:54→23:25)
[2018-07-18] MEDS: COREG PO SCH ×2 (08:54→23:24)
[2018-07-18] MEDS: ASPIRIN PO SCH (08:54)
[2018-07-18] MEDS: LASIX PO SCH (08:54)
[2018-07-18] MEDS: ISORDIL PO SCH ×3 (08:54→23:25)
[2018-07-18] MEDS: APRESOLINE PO SCH ×3 (08:56→23:24)
--- NOTE | 2018-07-18 17:48 | PROGRESS NOTE ---
DATE: 07/18/2018 SUBJECTIVE: Patient has no major complaints. OBJECTIVE: Blood pressure is 110/92, heart rate is 77, respiratory rate 20, temperature 97.7 degrees, 100% saturation on room air.Cardiovascular: Regular rate and rhythm. Pulmonary: Bilateral breath sounds clear to auscultation. GI: Soft, nontender, nondistended. Bowel sounds were positive. LABORATORY DATA: White count 7, hemoglobin and hematocrit 12 and 38, platelets 274,000. Basic was normal. ASSESSMENT/PLAN: 1. Acute congestive heart failure exacerbation. We will continue treatment and follow. 2. Chronic obstructive pulmonary disease. He seems to be improving slowly. I am not sure if he will qualify for home oxygen will look at that. Hepatic passive venous congestion is stable. 3. Cocaine abuse. Advised on cessation. Will set him up with home health, home PT and follow. DISPOSITION: I anticipate possible discharge tomorrow just got evaluate for home oxygen needs. cc: Colten Murillo MD
[2018-07-18] MEDS: LIPITOR PO SCH (23:25)
[2018-07-19] MEDS: DUONEB (A & A) INH SCH ×6 (03:45→23:53)
[2018-07-19] MEDS: PROTONIX PO SCH (06:55)
[2018-07-19] MEDS: LOVENOX SUBQ SCH (06:55)
[2018-07-19] MEDS: NORVASC PO SCH ×2 (09:53→22:14)
[2018-07-19] MEDS: ENTRESTO 49 MG-51 MG TABLET PO SCH ×2 (09:53→22:14)
[2018-07-19] MEDS: LASIX PO SCH (09:53)
[2018-07-19] MEDS: ASPIRIN PO SCH (09:53)
[2018-07-19] MEDS: ISORDIL PO SCH ×3 (09:53→22:14)
[2018-07-19] MEDS: COREG PO SCH ×2 (09:54→22:14)
[2018-07-19] MEDS: SOLU-MEDROL IV SCH (09:54)
[2018-07-19] MEDS: APRESOLINE PO SCH ×3 (09:55→22:31)
[2018-07-19] MEDS: NORCO-10 PO PRN (12:38)
[2018-07-19] MEDS: HALDOL IM PRN (15:11)
--- NOTE | 2018-07-19 16:32 | PROGRESS NOTE ---
DATE: 07/19/2018 SUBJECTIVE: Patient has no major complaints. He does seem a little bit more confused today. Nurses report he has been going up and down the halls and he was given Haldol. He is somewhat confused to place and time. I am not sure what per se is inducing this if he is withdrawing from drugs or there is a new issue but plan was to try to get him home today because his heart failure seems to be better and now it is unclear what we are going to do next. OBJECTIVE: Blood pressure is 157/76, heart rate of 80, respiratory rate 20, temperature 97.8 degrees, 100% on room air.Cardiovascular: RRR Lungs: Clear to auscultation. GI: Was soft, nontender, nondistended. Bowel sounds are positive. Extremities: No clubbing or cyanosis. Lymphatic: No peripheral edema. Neurological: Nonfocal. LABORATORY DATA: His white count is 7, hemoglobin and hematocrit 12 and 38, platelets 274,000. Creatinine was 1.2. PROBLEM LIST: 1. Acute congestive heart failure exacerbation systolic. He seems to be doing better. I think we have optimized his medications. 2. Chronic obstructive pulmonary disease exacerbation. We will continue treatment. He has not qualified for home oxygen. He seems to be stable from that standpoint. 3. Hepatic passive venous congestion. His numbers also look stable. 4. History of cocaine abuse. Advised on cessation. 5. Encephalopathy which I think he probably has some degree of dementia possibly induced by other just multiple issues. He has nonfocal exam so I think it is unlikely to be stroke. We will check head CT. He would benefit I think from geripsych placement but because of his history of cocaine use they will probably objective but he is medically stable for transfer. I do not think this is withdrawal. I think he has underlying dementia frankly but we will try to get a psych evaluation and as per Dr. Saldivar had requested previously although previously did not have his severe agitation. We will continue to follow closely. cc: Colten Murillo MD [facility]
--- NOTE | 2018-07-19 16:55 | Diag Imaging Result Doc PS360 ---
EXAM: CT HEAD W/O CONTRAST HISTORY: encephalopathy TECHNIQUE: CT head without contrast COMPARISON: 03/12/2018 FINDINGS: No parenchymal hemorrhage. No epidural or subdural hematoma. No subarachnoid hemorrhage. There is atrophy with chronic microvascular ischemic changes. No mass identified on this noncontrasted exam. No hydrocephalus. No sinus opacification. IMPRESSION: 1.No hemorrhage 2.Atrophy with chronic microvascular ischemic changes This exam was performed using automated exposure control, adjustment of mA or kV according to patient size, and/or use of iterative reconstruction technique. Electronically signed by Gael Burrell 07/19/2018 4:52 PM
[2018-07-19] MEDS: GEODON IM PRN (22:14)
[2018-07-19] MEDS: LIPITOR PO SCH (22:14)
[2018-07-19] MEDS ORDERED: STERILE WATER INJ. ONE (22:27)
[2018-07-19] MEDS: SEROQUEL PO SCH (22:30)
[2018-07-20] MEDS: LOVENOX SUBQ SCH ×2 (06:29→06:31)
[2018-07-20] MEDS: PROTONIX PO SCH ×2 (06:29→06:31)
[2018-07-20 07:46] LABS: EOS# 0.04 X1000 (0.0-0.7); EOS% 0.5 % (0.0-10.0); HEMATOCRIT 39.9 % (42.0-52.0); HEMOGLOBIN 13.1 g/dL (14.0-18.0); LYMPH# 2.36 X1000 (1.2-3.4); LYMPH% 31.9 % (20.5-51.1); MCH 27.9 PG (27-31); MCHC 32.8 g/dL (33-37); MCV 85.1 FL (81-99); MONO# 0.87 X1000 (0.11-0.59); MONO% 11.8 % (1.7-9.3); MPV 10.9 FL (7.4-10.4); NEUT# 4.13 X1000 (1.4-6.5); NEUT% 55.8 % (42.2-75.2); PLT 291 X1000 (130-400); RBC 4.69 XMIL (4.7-6.1); RDW 15.4 % (11.5-14.5)
[2018-07-20 08:09] LABS: AGAP 12; BUN 38 mg/dL (8-22); CALCIUM 8.4 mg/dL (8.8-10.2); CHLORIDE 105 mmol/L (98-107); COSMO 299; ESTIMATED GFR > 60; GLUCOSE 82 mg/dL (70-104); MAGNESIUM 2.5 mg/dL (1.5-2.7); POTASSIUM 4.3 mmol/L (3.5-5.1); SODIUM 146 mmol/L (136-145); TCO2 29 mmol/L (25-35)
[2018-07-20] MEDS: ISORDIL PO SCH ×2 (09:27→14:28)
[2018-07-20] MEDS: COREG PO SCH (09:28)
[2018-07-20] MEDS: LASIX PO SCH (09:28)
[2018-07-20] MEDS: ASPIRIN PO SCH (09:28)
[2018-07-20] MEDS: NORVASC PO SCH (09:28)
[2018-07-20] MEDS: APRESOLINE PO SCH ×2 (09:28→14:29)
[2018-07-20] MEDS: ENTRESTO 49 MG-51 MG TABLET PO SCH (09:29)
[2018-07-20] MEDS: DUONEB (A & A) INH SCH ×4 (11:51→23:28)
--- NOTE | 2018-07-20 18:52 | PROGRESS NOTE ---
DATE: 07/20/2018 SUBJECTIVE: The patient is sitting at the edge of the bed. He states that his shortness of breath has improved. He is now on room air. OBJECTIVE: Vital Signs: Temperature 98.5 degrees, blood pressure 120/80, heart rate 86, respirations 22, O2 saturation is 96% on room air. General: This is an elderly male, lying in bed, in no acute distress. Heart: S1, S2. Normal. Lungs: Clear to auscultation bilaterally. Abdomen: Positive bowel sounds. Soft, nontender, nondistended. Extremities: No edema. No cyanosis. Neurologic: The patient is alert and oriented x3. LABS: White blood cell count 7.4. Sodium 146, potassium 4.3, chloride 105, CO2 29, BUN 38, creatinine 1, glucose 82. ASSESSMENT AND PLAN: 1. Acute systolic congestive heart failure exacerbation. Improved. Continue on Lasix, Coreg, Isordil, and Entresto. 2. Chronic obstructive pulmonary disease exacerbation. Improved. The patient is now on room air. 3. Cocaine abuse. The patient has been counseled about cessation. 4. Possible dementia. The patient has periods of confusion that come and go. We will plan to have [facility] assess the patient prior to discharge. 5. Deep vein thrombosis prophylaxis. Continue on Lovenox. 6. Disposition. Continue with physical therapy. cc: Hortencia Cardona MD
[2018-07-20] MEDS: GEODON IM PRN (23:42)
[2018-07-20] MEDS: SEROQUEL PO SCH (23:44)
[2018-07-21] MEDS: APRESOLINE PO SCH ×3 (01:07→14:31)
[2018-07-21] MEDS: COREG PO SCH ×2 (01:07→09:45)
[2018-07-21] MEDS: ENTRESTO 49 MG-51 MG TABLET PO SCH ×2 (01:08→09:45)
[2018-07-21] MEDS: NORVASC PO SCH ×2 (01:08→09:45)
[2018-07-21] MEDS: LIPITOR PO SCH (01:08)
[2018-07-21] MEDS: ISORDIL PO SCH ×3 (01:08→14:31)
[2018-07-21] MEDS: GEODON IM PRN (04:29)
[2018-07-21 07:09] LABS: HEMATOCRIT 41.2 % (42.0-52.0); HEMOGLOBIN 13.2 g/dL (14.0-18.0); MCV 87.3 FL (81-99); RBC 4.72 XMIL (4.7-6.1); RDW 15.4 % (11.5-14.5); WBC 6.6 X1000 (4.8-10.8)
--- NOTE | 2018-07-21 07:45 | Diag Imaging Result Doc PS360 ---
EXAM: CHEST-PORTABLE INDICATION: dyspnea TECHNIQUE: One view COMPARISON: 07/15/2018 FINDINGS: The bilateral infiltrates seen on previous studies have largely cleared. No new consolidation is identified. There is stable cardiomegaly. IMPRESSION: Clearing of the bilateral mild infiltrates seen on the previous study. Electronically signed by Gautam Ellis 07/21/2018 7:43 AM
[2018-07-21 07:46] LABS: ESTIMATED GFR > 60
[2018-07-21] MEDS: PROTONIX PO SCH (07:50)
[2018-07-21] MEDS: LOVENOX SUBQ SCH (07:50)
[2018-07-21 07:53] LABS: AGAP 11; BUN 53 mg/dL (8-22); CALCIUM 8.7 mg/dL (8.8-10.2); CHLORIDE 107 mmol/L (98-107); COSMO 301; CREATININE 1.1 mg/dL (0.7-1.2); GLUCOSE 88 mg/dL (70-104); POTASSIUM 4.4 mmol/L (3.5-5.1); SODIUM 144 mmol/L (136-145); TCO2 26 mmol/L (25-35)
[2018-07-21] MEDS: DUONEB (A & A) INH SCH ×3 (08:51→16:37)
[2018-07-21] MEDS: ASPIRIN PO SCH (09:45)
[2018-07-21] MEDS: LASIX PO SCH (09:45)
[2018-07-21 16:02] VITALS: BP 146/62
--- NOTE | 2018-08-14 19:37 | DISCHARGE SUMMARY ---
ADMISSION DATE: 07/12/2018 DISCHARGE DATE: 07/21/2018 DISCHARGE DIAGNOSES: 1. Acute systolic congestive heart failure exacerbation. 2. Chronic obstructive pulmonary disease exacerbation. 3. Dementia. 4. Cocaine abuse. 5. Ischemic cardiomyopathy. CONSULTATIONS: Cardiology consultation with Dr. Saldivar. HOSPITAL COURSE: Mr. Quan is a 77-year-old male who presented to the ER with a chief complaint of lower extremity edema and shortness of breath. On admission, the patient was noted to be in heart failure. A chest x-ray was done that revealed interstitial pulmonary edema. The patient was admitted to the hospitalist service and placed on telemetry and diuretic therapy. Cardiology was consulted as well. The patient does have a history of polysubstance abuse, and this was discussed extensively with the patient. He was also advised to stop using illicit substances. With the initiation of diuresis, the patient's respiratory status and volume status improved. The patient continued to improve clinically and was ultimately cleared for discharge home. DISCHARGE MEDICATIONS: 1. DuoNeb 3 mL inhaled every 4 hours p.r.n. for shortness of breath. 2. Norvasc 5 mg p.o. twice a day. 3. Aspirin 81 mg oral daily. 4. Lipitor 80 mg oral at bedtime. 5. Coreg 3.125 mg oral twice a day. 6. Lasix 40 mg p.o. daily. 7. Hydralazine 50 mg p.o. 3 times a day. 8. Towson 7.5/325 one tab oral every 6 hours p.r.n. for pain. 9. Isordil 40 mg p.o. 3 times a day. 10. Protonix 40 mg p.o. daily. 11. Entresto one tablet oral twice a day. DISCHARGE DIET: Low-sodium low-cholesterol diet. ACTIVITY: As tolerated. FOLLOWUP INSTRUCTIONS: The patient will need to follow up with Dr. Saldivar as scheduled by his clinic. cc: Hortencia Cardona MD
== END 2018-07-21 17:20 | disposition home health service (06) | DRG 292 ==
LOC: SUPCPDRO → ED 10:54 → 3N 15:54 → SUATTDRO 15:54 → 3S 18:51 → 4N 07-17 14:20
PROVIDERS: ATTEND Internal Medicine
CPT/HCPCS: 51702; 70450; 71010; 71045; 80048; 80053; 80061; 80076; 80101; 80301; 80307; 80324; 80345; 80346; 80353; 80358; 80361; 80365; 81001; 82550; 82553; 82805; 83735; 83880; 83992; 84484; 85025; 85027; 93005; 93010; 94640; 94761; 96374; 97162; 97530; 99285; A9270; G0431; G0434; G0479; G0480; J1630; J1650; J1940; J2270; J2920; J2930; J3475; J3486; J7040